=== PATIENT | male | born 1935 | race Caucasian/White ===

== ENCOUNTER 2023-11-14 12:05 | Observation (INO) | payer MEDICARE, SELFPAY ==
[2023-11-14] VITALS (11 sets, daily range): BP systolic 76–141; BP diastolic 47–86; PULSE 73–104; RESP 15–18; TEMP 36.3–36.6; O2SAT 94–98; BMI 24.9; BMI 25.2
--- NOTE | ~2023-11-14 | CT_ITS ---
EXAMINATION: CT HEAD WITHOUT CONTRAST CLINICAL INFORMATION: Fall. COMPARISON: None. TECHNIQUE: Contiguous axial imaging was performed from the skullbase to vertex without intravenous administration of contrast. This CT examination was performed using dose optimization techniques as appropriate, variously including the following: *Automated exposure control *Adjustment of mA and/or kV according to patient size (this includes techniques or standardized protocols for targeted exams where dose is matched to indication/reason for exam; i.e. extremities or head) *Use of iterative reconstruction technique DLP: 638.6 mGy-cm. FINDINGS: There is no evidence of acute intracranial hemorrhage or territorial infarction. No abnormal mass effect or midline shift is seen. No extra-axial fluid collections are identified. Severe chronic white matter microangiopathic changes are noted in both cerebral hemispheres. There is a suspected 6 mm anterior communicating artery aneurysm in the midline suprasellar cistern. Severe diffuse brain parenchymal volume loss is visible with commensurate ex vacuo prominence of the ventricles relative to the sulcal spaces. The osseous structures and soft tissues are normal. Dolichoectasia vertebrobasilar vasculature noted. The mastoid air cells and visualized portions of the paranasal sinuses are well aerated. CT/CT head/brain wo IV con IMPRESSION: No acute intracranial hemorrhage or territorial infarction. Severe chronic white matter microangiopathy and diffuse brain parenchymal volume loss. 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 Recommend further evaluation with a follow-up CT angiogram of the head. Imaging reported to Dr. Stallings at 4:55 PM on 11/14/2023.
--- NOTE | ~2023-11-14 | CT_ITS ---
EXAMINATION: CT ABDOMEN AND PELVIS WITH CONTRAST CLINICAL INFORMATION: Trauma. COMPARISON: None available. TECHNIQUE: Multidetector volumetric images were obtained from the superior aspect of the liver through the pubic symphysis following administration 85 mL of Omnipaque 350 intravenous contrast. Sagittal and coronal reformatted images were obtained on the technologist's workstation. Oral contrast: No This CT examination was performed using dose optimization techniques as appropriate, variously including the following: *Automated exposure control *Adjustment of mA and/or kV according to patient size (this includes techniques or standardized protocols for targeted exams where dose is matched to indication/reason for exam; i.e. extremities or head) *Use of iterative reconstruction technique DLP: 639.63 mGy-cm FINDINGS: LUNG BASES: Please see separately dictated report. LIVER, GALLBLADDER, AND BILIARY TREE: The liver is normal in size, shape, and attenuation. No focal hepatic lesion or biliary ductal dilatation is present. The gallbladder is unremarkable with no evidence of radiopaque gallstones, gallbladder wall thickening, or obvious pericholecystic inflammatory changes. PANCREAS: Unremarkable. SPLEEN: Unremarkable. ADRENAL GLANDS: Unremarkable. KIDNEYS AND URETERS: The kidneys enhance symmetrically. There are right renal cysts for which no further imaging follow-up is needed. 4 mm nonobstructing lower pole left renal calculus. No hydronephrosis or perinephric fluid collection. BLADDER: Unremarkable. GASTROINTESTINAL TRACT: No small bowel obstruction. Moderate fecal retention in the colon. Diverticular disease of the colon. ABDOMINAL WALL: Status post left inguinal hernia repair. LYMPH NODES: No bulky lymphadenopathy. VASCULAR: Normal caliber abdominal aorta. PELVIC VISCERA: Solid enhancing mass in the left lower quadrant measures 7.6 x 6.3 x 6.9 cm. Multiple surgical clips in the pelvis likely attributable to prostatectomy and pelvic lymph node dissection. OSSEOUS STRUCTURES: No destructive bone lesions. CT/CT abdomen pelvis w IV con IMPRESSION: Enhancing solid soft tissue mass in the left lower quadrant measuring 7.6 x 6.3 x 6.9 cm. There is no definite invasion of surrounding structures. This could represent a desmoid tumor. Cytopathologic correlation may be considered. One cannot exclude the possibility of recurrent disease in the setting of prostatectomy. Consider correlation with PSA. 4 mm nonobstructing left renal calculus. No hydronephrosis.
--- NOTE | ~2023-11-14 | CT_ITS ---
EXAMINATION: CT ANGIOGRAM OF THE CHEST WITH AND WITHOUT CONTRAST (CT PULMONARY ANGIOGRAM FOR PE) CLINICAL INFORMATION: Reason for Exam syncope COMPARISON: None available. TECHNIQUE: Prior to contrast administration, noncontrast localization images were obtained. Subsequently, multidetector volumetric imaging was performed from the thoracic inlet to below the diaphragms following the administration of 85 mL Omnipaque 350 intravenous contrast. No contrast reaction reported Sagittal, coronal, and MIP oblique sagittal reformatted images were obtained on the CT workstation, uploaded to PACS, and reviewed. This CT examination was performed using dose optimization techniques as appropriate, variously including the following: *Automated exposure control *Adjustment of mA and/or kV according to patient size (this includes techniques or standardized protocols for targeted exams where dose is matched to indication/reason for exam; i.e. extremities or head) *Use of iterative reconstruction technique Total exam dose-length product 340.87 mGy-cm FINDINGS: QUALITY OF STUDY/CONTRAST BOLUS: Satisfactory. PULMONARY ARTERIES: No pulmonary emboli. 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 THORACIC AORTA: Measures 4.2 x 4.1 cm in transverse dimension. LUNG: No suspicious pulmonary nodules. Patchy airspace disease in the left lower lobe and superior segment right lower lobe. Right middle lobe consolidation. Central airways are patent. PLEURA: No pleural effusion. MEDIASTINUM: 9 mm hypodense right thyroid nodule. The left thyroid lobe is asymmetrically smaller. Heart is enlarged. No pericardial effusion. No mediastinal lymphadenopathy. No evidence of septal bowing or right heart strain. CORONARY ARTERY CALCIFICATION: Moderate. CHEST WALL/AXILLA: No axillary or internal mammary lymphadenopathy. OSSEOUS STRUCTURES: No destructive bone lesions. UPPER ABDOMEN: Please see separately dictated report. No reflux of contrast into the hepatic veins to suggest elevated right heart pressures. CT/CT angio chest PE protocol IMPRESSION: No evidence of pulmonary embolus. Right middle lobe consolidation. Patchy airspace disease in the left lower lobe and superior segment right lower lobe. This may represent multifocal pneumonia. Advise clinical correlation and short interval follow-up imaging. Focal outpouching of the left main pulmonary artery measuring 2.1 x 1.6 x 2.8 cm likely representing an aneurysm. Thoracic aortic aneurysm. VTE: negative
--- NOTE | ~2023-11-14 | XR_ITS ---
EXAMINATION: XR BILATERAL HIPS WITH AP PELVIS CLINICAL INFORMATION: Fall. hip pain. COMPARISON: CT abdomen pelvis November 14, 2023 TECHNIQUE: AP view of the pelvis and 2 views of each hip were obtained. FINDINGS: No fracture. Hip joint spaces are maintained. Alignment is anatomic. Sacroiliac joints and pubic symphysis are normal. No abnormal soft tissue calcifications. Surgical clips in the pelvis. Bladder is opacified with contrast. Visualized bowel pattern is nonobstructive. XR/XR hip BI w PEL1V IMPRESSION: No evidence of acute fracture or dislocation.
--- NOTE | 2023-11-14 12:51 | ECG_ITS ---
Test Reason : SYNCOPE Blood Pressure : / mmHG Vent. Rate : 094 BPM Atrial Rate : 094 BPM P-R Int : 200 ms QRS Dur : 132 ms QT Int : 382 ms P-R-T Axes : 038 -35 006 degrees QTc Int : 477 ms Normal sinus rhythm Left axis deviation Right bundle branch block Abnormal ECG No previous ECGs available Referred By: Tino Stallings Electronically Signed By:CLAYTON SALDIVAR
--- NOTE | 2023-11-14 12:51 | ED.GENADULT ---
HPI - General Adult General Chief complaint: Fall Stated complaint: MECHANICAL FALL Time Seen by Provider: 11/14/23 12:30 Source: patient and family History of Present Illness HPI narrative: This is an 88-year-old male with a past medical history of hypertension, hyperlipidemia, primary progressive aphasia presents evaluation after a fall. Patient's spouse Guillermo and his in-laws are present at time of history and exam. Patient's history is limited due to expressive aphasia. Patient states he was out on his deck and all of a suddenly fell. Patient states he fell. Patient's family states he was out on his deck and fell backward. They state he did not hit his head or lose consciousness. They state no abnormal/uncontrolled body movements or incontinence. Patient states feeling better at this time. He states his name. He does not state season or month. He states no neck pain, paresthesias or extremity weakness. Family states decreased oral intake for the last several months. They state he has been told he has dementia. They state noting he has developing a shuffling gait. They state he is at baseline mentation and speech. states he fells back in 2019 and broken his left elbow requiring a pin . He states no other falls since then. Patient states no headache, nausea, vomiting, vision changes/loss, hearing change/loss, double vision, difficulty swallowing, chest pain, dyspnea, back pain, extremity weakness, arm pain or leg pain. Related Data Allergies Allergy/AdvReac Type Severity Reaction Status Date / Time No Known Allergies Allergy Verified 11/14/23 12:13 Review of Systems Review of Systems: ROS as per HPI [facility] Social History Social History Smoked in Last 30 Days: No Use of substances other than those prescribed or required for medical reasons: No Advance Directives: No Advance Directives Information Provided: No Physical Exam ED Vital Signs: Vital Signs - 24 hr 11/14/23 12:09 11/14/23 13:06 11/14/23 13:26 Temperature 97.4 F Pulse Rate 92 90 89 Respiratory Rate 16 18 Blood Pressure 99/56 L 119/75 128/74 Pulse Oximetry 95 94 Oxygen Delivery Method Nasal Cannula Room Air 11/14/23 13:27 11/14/23 13:31 11/14/23 14:14 Temperature Pulse Rate 98 104 H 88 Respiratory Rate 17 Blood Pressure 89/54 L 76/47 L 130/79 Pulse Oximetry 94 Oxygen Delivery Method Room Air 11/14/23 14:33 11/14/23 15:05 11/14/23 16:39 Temperature 97.4 F 97.4 F Pulse Rate 74 73 85 Respiratory Rate 15 18 17 Blood Pressure 119/70 119/65 106/67 Pulse Oximetry 98 94 94 Oxygen Delivery Method Room Air Room Air Room Air BMI result Body Mass Index 24.9 Gen: NAD, alert HEENT: NCAT, no periorbital or posterior auricular ecchymosis, EOMI, normal conjunctiva, no lingual lacerations CV: RRR, 2+ bilateral radial DP/PT pulses, no murmurs appreciated Pulm: CTAB, no increased work of breathing GI: Soft, NTND, no rebound, guarding or rigidity MSK: Bilateral upper and lower extremity compartments are soft, no midline vertebral tenderness to palpation, full range of motion with neck flexion/extension 45? lateral rotation, pelvis stable, full range of motion with bilateral shoulder/extension and bilateral hip/knee flexion/extension Neuro: Cranial nerves 2-12 are grossly intact, 5/5 bilateral upper and extremity strength, sensation intact to light touch in bilateral upper extremities Medications Administered Discontinued Medications Generic Name Dose Route Start Last Admin Trade Name Freq PRN Reason Stop Dose Admin Lactated Ringer's 1,000 mls @ 999 mls/hr 11/14/23 13:45 11/14/23 15:05 Lr IV 11/14/23 14:45 Infused .Q1H1M ONE Infusion Ceftriaxone Sodium 1 gm/ 50 mls @ 100 mls/hr 11/14/23 17:15 11/14/23 18:05 Sodium Chloride IV 11/14/23 17:44 100 mls/hr ONCE ONE Administration Iohexol 85 ml 11/14/23 14:20 11/14/23 14:20 Iohexol 350 Mg/Ml 100 Ml Infus..Btl IV 11/14/23 14:21 85 ml ONCE ONE Administration Medical Decision Making Medical Decision Making MDM Narrative: Patient presents for evaluation of syncope. He is found to have positive orthostatic vital signs here in the ED. He is otherwise afebrile and hemodynamically stable. He is provided IV fluids. His blood work is reassuring and noncontributory. Differential diagnosis includes, but is not limited to orthostatic hypotension, vasovagal syncope, arrhythmia. This is less likely seizure given history and exam. Given positive orthostatic vital signs is most likely that this is the etiology of the patient's fall and syncope. 1726 - CT demonstrates right middle lobe consolidation. Differential diagnosis is expanded to include early sepsis (given hypotension at home), pneumonia. We will obtain blood cultures, lactic acid, PT/PTT. We will treat empirically for community-acquired pneumonia with ceftriaxone and doxycycline. 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 There is no acute intracranial hemorrhage or territorial infarction. 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 CT abdomen/pelvis with IV contrast demonstrates an enhancing solid soft tissue mass in the left lower quadrant and 4 mm nonobstructing left renal calculus without hydronephrosis. CT angio chest PE protocol demonstrates no evidence of pulmonary embolism, right middle lobe consolidation, thoracic aortic aneurysm and focal outpouching of the left main pulmonary artery likely representing an aneurysm. Blood work and CT imaging findings discussed with the patient, spouse and in-laws. Discussed plan for admission. Patient admitted to hospitalist Dr. Brown for further workup and management. Admission/Observation I discussed patient's care and management with admitting hospitalist Dr. Brown. Consult Healthcare Provider Management of the patient was discussed with: Hospitalist Lab Data MDM Lab Attestation statement: I reviewed the patient's lab results. 11/14/23 13:23 11/14/23 13:23 Labs: Lab Results 11/14/23 11/14/23 Range/Units 13:23 17:25 WBC 9.1 (4.8-10.8) X10*3/uL RBC 3.80 L (4.60-5.80) X10*6/uL Hgb 10.8 L (14.0-18.0) g/dl Hct 33.1 L (42.0-52.0) % MCV 87.1 (80.0-98.0) fL MCH 28.4 (27.0-33.0) pg MCHC 32.6 (31.0-36.0) g/dl RDW 14.6 (11.0-16.0) % Plt Count 267 (160-400) X10*3/uL MPV 7.9 L (9.4-12.4) fL Immature Gran % (Auto) 0.3 (0.0-0.4) % Neut % (Auto) 84.1 H (45-73) % Lymph % (Auto) 9.0 L (20-40) % [place] % (Auto) 6.1 (2-11) % Eos % (Auto) 0.2 (0-4) % Baso % (Auto) 0.3 (0-2) % Lymph # (Auto) 0.8 L (1.2-4.9) X10*3/uL [place] # (Auto) 0.6 (0.1-1.2) X10*3/uL Eos # (Auto) 0.0 (0.0-0.4) X10*3/uL Baso # (Auto) 0.0 (0.0-0.2) X10*3/uL Abs Immat Gran (auto) 0.03 (0.00-0.03) X10*3/uL Absolute Neuts (auto) 7.7 (2.0-8.3) x10*3/uL Absolute Nucleated RBC 0.000 (0.0-0.012) X10*3/uL Nucleated RBC % (auto) 0.0 (0.0-0.2) /100WBC APTT 28.7 (26.0-36.8) SEC Sodium 136 (135-145) mmol/L Potassium 3.8 (3.3-5.1) mmol/L Chloride 105 (96-108) mmol/L Carbon Dioxide 25 (22-29) mmol/L Anion Gap 10 L (12-20) BUN 20 H (9-16) mg/dL Creatinine 1.02 (0.5-1.4) mg/dL Estim Creat Clear Calc 46.9 Estimated GFR > 60 Random Glucose 178 H (60-115) mg/dL Lactic Acid 0.9 (0.5-2.0) mmol/L Calcium 9.3 (8.4-10.2) mg/dL Total Bilirubin 0.5 (0.0-1.0) mg/dL AST 15 (5-37) U/L ALT 14 (0-40) U/L Alkaline Phosphatase 80 (39-117) U/L Total Protein 7.0 (6.5-8.0) g/dL Albumin 3.2 L (3.5-5.0) g/dL Blood Type A Positive Antibody Screen NEGATIVE Radiology Impression Discussion of test interpretation with radiology: I discussed test interpretation with the radiologist and I have reviewed the radiologist's reading. Radiologist Impression: IMPRESSION: No acute intracranial hemorrhage or territorial infarction. Severe chronic white matter microangiopathy and diffuse brain parenchymal volume loss. 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 Recommend further evaluation with a follow-up CT angiogram of the head. Imaging reported to Dr. Stallings at 4:55 PM on 11/14/2023. Dictated By: LISA RASHID MD Signed By: <Electronically signed by LISA RASHID MD in [place]> 11/14/[address]/CT abdomen pelvis w IV con IMPRESSION: Enhancing solid soft tissue mass in the left lower quadrant measuring 7.6 x 6.3 x 6.9 cm. There is no definite invasion of surrounding structures. This could represent a desmoid tumor. Cytopathologic correlation may be considered. One cannot exclude the possibility of recurrent disease in the setting of prostatectomy. Consider correlation with PSA. 4 mm nonobstructing left renal calculus. No hydronephrosis. IMPRESSION: No evidence of pulmonary embolus. Right middle lobe consolidation. Patchy airspace disease in the left lower lobe and superior segment right lower lobe. This may represent multifocal pneumonia. Advise clinical correlation and short interval follow-up imaging. Focal outpouching of the left main pulmonary artery measuring 2.1 x 1.6 x 2.8 cm likely representing an aneurysm. Thoracic aortic aneurysm. VTE: negative Dictated By: Cindi Rodríguez MD Signed By: <Electronically signed by Cindi Rodríguez MD in [place]> 11/14/23 1810 Independent Historian Clinical information obtained from an independent historian. History obtained from or confirmed by: Spouse and Other Patient's spouse and in-laws provide additional history Discharge Plan Discharge Clinical Impression: Syncope Patient Disposition: Admitted As Inpatient Print Language: Latvian
--- NOTE | 2023-11-14 13:08 | PC.NURSE ---
Addendum entered by Suzanne Richardson 11/14/23 16:46: Pt does have expressive aphasia at baseline. Original Note: Pt presents to ED from home via EMS, family reports pt was walking and looked unwell, pale. Pt had a fall backwards to the ground, no head hit, ?LOC. Pt reports he felt unwell and then thinks he may have blacked out for a few seconds. BP hypotensive for family and EMS. Pt now alert and oriented, breathing even and unlabored, skin slightly pale. BP normotensive at this time, NSR on bedside quality assurance monitor body. Pt denies head or neck pain, CP, SOB, N/V/D, recent illnesses/ fever/ cough. Pt reports altered sensations in his bilat feet, intermittent for past month. Positive pulses and movement. No obvious trauma noted to head or face.
[2023-11-14 13:28] LABS: MANUAL DIFF FLAG NO
[2023-11-14 13:29] LABS: Basophils Percent Auto 0.3 % (0-2); Eosinophils Percent Auto 0.2 % (0-4); Hematocrit 33.1 % (42.0-52.0); Hemoglobin 10.8 g/dl (14.0-18.0); Imm Gran Abs Auto 0.03 X10*3/uL (0.00-0.03); Imm Gran Pct Auto 0.3 % (0.0-0.4); Lymphocytes Absolute Auto 0.8 X10*3/uL (1.2-4.9); Mean Corpuscular HGB Conc 32.6 g/dl (31.0-36.0); Mean Corpuscular Hemoglobin 28.4 pg (27.0-33.0); Mean Corpuscular Volume 87.1 fL (80.0-98.0); Mean Platelet Volume 7.9 fL (9.4-12.4); Monocytes Absolute Auto 0.6 X10*3/uL (0.1-1.2); Monocytes Percent Auto 6.1 % (2-11); Neutrophils Absolute Auto 7.7 x10*3/uL (2.0-8.3); Neutrophils Percent Auto 84.1 % (45-73); Platelet Count 267 X10*3/uL (160-400); Red Cell Distribution Width 14.6 % (11.0-16.0); White Blood Count 9.1 X10*3/uL (4.8-10.8)
[2023-11-14 13:45] LABS: Alanine Aminotransferase 14 U/L (0-40); Albumin Level 3.2 g/dL (3.5-5.0); Alkaline Phosphatase 80 U/L (39-117); Anion Gap 10 (12-20); Aspartate Amino Transferase 15 U/L (5-37); Bilirubin Total 0.5 mg/dL (0.0-1.0); Blood Urea Nitrogen 20 mg/dL (9-16); Calcium 9.3 mg/dL (8.4-10.2); Carbon Dioxide 25 mmol/L (22-29); Chloride 105 mmol/L (96-108); Creatinine Clr Calc Pharmacy 46.9; Estimated Glomerular Filt Rate > 60; Glucose Random 178 mg/dL (60-115); Potassium 3.8 mmol/L (3.3-5.1); Sodium 136 mmol/L (135-145)
[2023-11-14] MEDS: Lactated Ringers 1,000 ML 999 ML IV (13:53)
[2023-11-14] MEDS: iohexoL 350 MG/ML 100 ML INFUS..BTL 85 ML IV (14:20)
--- NOTE | 2023-11-14 16:46 | PC.NURSE ---
Rn alerted that pt removed his IV, pt reports he was trying to get the tape off and accidentally removed the IV. Pt denies any complaints, no pain. VSS.
[2023-11-14 17:51] LABS: Lactic Acid 0.9 mmol/L (0.5-2.0)
[2023-11-14 17:54] LABS: Partial Thromboplastin Time 28.7 SEC (26.0-36.8)
[2023-11-14] MEDS: cefTRIAXone sodium 1 GM in 0.9 % Sodium Chloride 50 ML IV (18:05)
--- NOTE | 2023-11-14 18:20 | PHA.MEDREC ---
Pharmacy Consult ? Medication Reconciliation Pharmacy has completed the medication reconciliation. Called spouse Matt and he was able to confirm medications on the list. His spouse stated that patient is taking Vitamin B-12 but was not sure on the dosing, I did not add to the Pt med list for that reason.
[2023-11-14] MEDS: Doxycycline Hyclate 100 MG in 0.9 % Sodium Chloride 250 ML 166.67 MG IV (18:26)
--- NOTE | 2023-11-14 18:29 | PM.IMHP ---
History of Present Illness Date of Service: 11/14/23 Attending physician on admission: Katie Brown Chief Complaint: fall ,orthostatic hypotension 88-year-old male with a past medical history of hypertension, hyperlipidemia, primary progressive aphasia,mild dementia unspecified- presents evaluation after a fall. Patient's spouse Guillermo and his in-laws are present at time of history and exam. Patient's history is limited due to expressive aphasia. Patient states he was out on his deck and all of a suddenly fell, he was out on his deck and fell backward, did not hit his head or lose consciousness. no abnormal/uncontrolled body movements or incontinence. denies no neck pain, paresthesias or extremity weakness. he also decreased oral intake for the last several months. lost 12 lb last 3 months. They state he is at baseline mentation and speech. states he fells back in 2019 and broken his left elbow requiring a pin .He states no other falls since then. he is feeling better ,he seems mental baseline . he is progressively declining function cristina ,gait is also becoming shuffling. Patient states no headache, nausea, vomiting, vision changes/loss, hearing change/loss, double vision, difficulty swallowing, chest pain, dyspnea, back pain, extremity weakness, arm pain or leg pain. Review of Systems Review of Systems: as above Yes all other systems are reviewed and are negative [facility] Social History Smoked in Last 30 Days: No Use of substances other than those prescribed or required for medical reasons: No Advance Directives: No Advance Directives Information Provided: No Meds Allergies Allergy/AdvReac Type Severity Reaction Status Date / Time No Known Allergies Allergy Verified 11/14/23 12:13 Active Medications: Current Medications Aspirin (Aspirin 81 Mg Tab.Chew) 81 mg PO DAILY [facility] Doxycycline Hyclate 100 mg/ (Sodium Chloride) 250 mls @ 166.67 mls/hr IV ONCE ONE Stop: 11/14/23 18:44 Last Admin: 11/14/23 18:26 Dose: 166.67 mls/hr Multivitamins/Vitamin C (Multivitamin Tablet) 1 tab PO DAILY [facility] Non-Formulary Medication (Simvastatin) 20 mg PO BEDTIME [facility] Sodium Chloride (0.9 % Sodium Chloride Flush 3 Ml Syringe) 3 ml IVFLUSH QSHIFT [facility] Home Medications ?Medication ?Instructions ?Recorded ?Confirmed ?Last Taken ?Type aspirin 81 mg chewable tablet 81 mg PO DAILY 11/14/23 11/14/23 11/13/23 History hydrochlorothiazide 12.5 mg capsule 12.5 mg PO DAILY 11/14/23 11/14/23 11/13/23 History multivitamin 1 tab PO DAILY 11/14/23 11/14/23 11/13/23 History simvastatin 20 mg tablet 20 mg PO BEDTIME 11/14/23 11/14/23 11/13/23 History Physical Exam Vital Signs and Narrative: Vital Signs: Last Vital Signs Temp 97.4 F 11/14/23 16:39 Pulse 85 11/14/23 16:39 Resp 17 11/14/23 16:39 BP 106/67 11/14/23 16:39 Pulse Ox 94 11/14/23 16:39 O2 Del Method Room Air 11/14/23 16:39 Oxygen Flow Rate 2 11/14/23 12:09 BMI result Body Mass Index 24.9 Appearance: Alert.? Oriented X2. cvs: rrr, [id number] . res: clear to auscultation ,no rhonchii or wheezing abd: no rebound or guarding ,nt, bs present. ext pulses present , no cyanosis . neuro: axo3 , nonfocal. Results Labs 11/14/23 13:23 11/14/23 13:23 Labs: Laboratory Results - last 24 hr 11/14/23 11/14/23 13:23 17:25 MCV 87.1 MCH 28.4 MCHC 32.6 RDW 14.6 Plt Count 267 MPV 7.9 L Immature Gran % (Auto) 0.3 Neut % (Auto) 84.1 H Lymph % (Auto) 9.0 L [place] % (Auto) 6.1 Eos % (Auto) 0.2 Baso % (Auto) 0.3 Lymph # (Auto) 0.8 L [place] # (Auto) 0.6 Eos # (Auto) 0.0 Baso # (Auto) 0.0 Abs Immat Gran (auto) 0.03 Absolute Neuts (auto) 7.7 Absolute Nucleated RBC 0.000 Nucleated RBC % (auto) 0.0 APTT 28.7 Anion Gap 10 L Estim Creat Clear Calc 46.9 Estimated GFR > 60 Random Glucose 178 H Lactic Acid 0.9 Calcium 9.3 Total Bilirubin 0.5 AST 15 ALT 14 Alkaline Phosphatase 80 Total Protein 7.0 Albumin 3.2 L Blood Type A Positive Antibody Screen NEGATIVE Imaging Radiologist's Impressions: Impressions Chest CTA 11/14/23 14:41 IMPRESSION: No evidence of pulmonary embolus. Right middle lobe consolidation. Patchy airspace disease in the left lower lobe and superior segment right lower lobe. This may represent multifocal pneumonia. Advise clinical correlation and short interval follow-up imaging. Focal outpouching of the left main pulmonary artery measuring 2.1 x 1.6 x 2.8 cm likely representing an aneurysm. Thoracic aortic aneurysm. VTE: negative Abdomen/Pelvis CT 11/14/23 14:42 IMPRESSION: Enhancing solid soft tissue mass in the left lower quadrant measuring 7.6 x 6.3 x 6.9 cm. There is no definite invasion of surrounding structures. This could represent a desmoid tumor. Cytopathologic correlation may be considered. One cannot exclude the possibility of recurrent disease in the setting of prostatectomy. Consider correlation with PSA. 4 mm nonobstructing left renal calculus. No hydronephrosis. Head CT 11/14/23 14:44 IMPRESSION: No acute intracranial hemorrhage or territorial infarction. Severe chronic white matter microangiopathy and diffuse brain parenchymal volume loss. 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 Recommend further evaluation with a follow-up CT angiogram of the head. Imaging reported to Dr. Stallings at 4:55 PM on 11/14/2023. Assessment and Plan (1) Fall: Qualifiers: Encounter type: initial encounter Qualified Code(s): W19.XXXA - Unspecified fall, initial encounter Status: Acute (2) Pneumonia: Qualifiers: Laterality: right Lung location: middle lobe of lung Pneumonia type: due to unspecified organism Qualified Code(s): J18.9 - Pneumonia, unspecified organism Status: Acute (3) Orthostasis: Status: Acute Plan 88-year-old male with a past medical history of hypertension, hyperlipidemia, primary progressive aphasia presents evaluation after a fall. primary progressive aphasia : follow up with his pcp/primary neurology. fall /orthostatic hypotension moniter bp closely Received IV fluid in ED and blood pressure seems to be improved. Tachycardia likely related to orthostatic hypotension. 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 Patient does not have any headache or any new symptoms. Outpatient follow-up with Neurology. 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 CT abdomen also showsEnhancing solid soft tissue mass in the left lower quadrant measuring 7.6 x 6.3 x 6.9 cm. There is no definite invasion of surrounding structures. This could represent a desmoid tumor. Cytopathologic correlation may be considered. May need outpatient biopsy and workup Pneumonia: No fever, no leukocytosis had some congestion but no cough Will check ReS panel Blood culture pending Tachycardia and hypotension related to orthostatic hypotension- no sepsis. Will continue IV antibiotics for now. Hypertension: Stop hydrochlorothiazide Note blood pressure closely HLP: Continue statin. Generalized weak: PT evaluation. DVT prophylaxis SCD. Patient will benefit from observation stay due to symptomatic orthostatic hypotension-need IV fluids, also need IV antibiotics for pneumonia as well as close monitoring of blood pressure and respiratory status. PT evaluation. plan d/w HCp in detail.plan to manage conservatively. Time spent 70 minute, patient is DNR DNI. Give HCP miss ames says hcp/power of assistant city attorney,phone no [phone]. Quality Stroke Does the patient have a stroke diagnosis?: No VTE Prior VTE?: No VTE Risk Level:: Medical - moderate - high VTE Device Contraindication: N/A - Device Ordered VTE Drug Contraindication: N/A - Med Ordered
--- NOTE | 2023-11-14 19:06 | PC.NURSE ---
Pt resting quietly in stretcher. Denies any needs at this time. Doxycycline continues to infuse.
[2023-11-14] MEDS: 0.9 % Sodium Chloride 1,000 ML 100 ML IVCONT (19:31)
[2023-11-14 21:35] LABS: INTERNATIONAL NORM RATIO 1.1 (0.9-1.1); Prothrombin Time 13.1 SEC (11.1-13.3)
[2023-11-14] MEDS: Atorvastatin Calcium 10 MG TABLET PO (23:44)
[2023-11-15] VITALS (9 sets, daily range): BP systolic 121–160; BP diastolic 63–78; PULSE 68–98; RESP 16–20; TEMP 36.3–37.1; O2SAT 94–97
[2023-11-15] MEDS: 0.9 % Sodium Chloride 1,000 ML 100 ML IVCONT ×2 (04:40→16:02)
[2023-11-15] MEDS: Aspirin 81 MG TAB.CHEW PO (08:40)
[2023-11-15] MEDS: Multivitamin TABLET 1 TAB PO (08:40)
[2023-11-15] MEDS: Doxycycline Hyclate 100 MG in 0.9 % Sodium Chloride 250 ML 166.67 MG IV ×2 (08:40→18:24)
[2023-11-15] MEDS: 0.9 % Sodium Chloride Flush 3 ML SYRINGE IVFLUSH ×3 (08:40→21:28)
--- NOTE | 2023-11-15 10:57 | P.CNNE_ITS ---
History of Present Illness Data of Consult Service Date: 11/15/23 Primary Care Provider: Clementine Freeman MD HPI Reason for consult: Aphasia 88 years old man with underlying history of dementia and aphasia came to hospital after he fell down. When I asked him why he was here, he stated that he had no place to stay. There was no sign of distress. Review of Systems 2 Review of Systems: No recent cold or flu-like illness PMFSH Social History Social History Household Members: Spouse Housing: Assisted Living Facility Do you presently have visiting nurse or other home services: No Patient Tobacco Use Status: Former Tobacco user Meds Allergies Allergy/AdvReac Type Severity Reaction Status Date / Time No Known Allergies Allergy Verified 11/14/23 12:13 Active Medications: Current Medications Aspirin (Aspirin 81 Mg Tab.Chew) 81 mg PO DAILY [facility] Last Admin: 11/15/23 08:40 Dose: 81 mg Atorvastatin Calcium (Atorvastatin Calcium 10 Mg Tablet) 10 mg PO BEDTIME [facility] Last Admin: 11/14/23 23:44 Dose: 10 mg Sodium Chloride (Ns) 1,000 mls @ 100 mls/hr IVCONT .Q10H [facility] Last Admin: 11/15/23 04:40 Dose: 100 mls/hr Doxycycline Hyclate 100 mg/ (Sodium Chloride) 250 mls @ 166.67 mls/hr IV Q12H [facility] Last Admin: 11/15/23 08:40 Dose: 166.67 mls/hr Ceftriaxone Sodium 1 gm/ (Sodium Chloride) 50 mls @ 100 mls/hr IV Q24H [facility] Multivitamins/Vitamin C (Multivitamin Tablet) 1 tab PO DAILY [facility] Last Admin: 11/15/23 08:40 Dose: 1 tab Sodium Chloride (0.9 % Sodium Chloride Flush 3 Ml Syringe) 3 ml IVFLUSH QSHIFT [facility] Last Admin: 11/15/23 08:40 Dose: 3 ml Home Medications ?Medication ?Instructions ?Recorded ?Confirmed ?Last Taken ?Type aspirin 81 mg chewable tablet 81 mg PO DAILY 11/14/23 11/14/23 11/13/23 History hydrochlorothiazide 12.5 mg capsule 12.5 mg PO DAILY 11/14/23 11/14/23 11/13/23 History multivitamin 1 tab PO DAILY 11/14/23 11/14/2324 History simvastatin 20 mg tablet 20 mg PO BEDTIME 11/14/23 11/14/23 11/13/23 History Physical Exam 2 Vital Signs: Vital Signs: Last Vital Signs Temp 97.7 F 11/15/23 07:30 Pulse 68 11/15/23 07:30 Resp 18 11/15/23 07:30 BP 132/73 11/15/23 07:30 Pulse Ox 94 11/15/23 07:30 O2 Del Method Room Air 11/15/23 07:30 Oxygen Flow Rate 2 11/14/23 12:09 BMI result Body Mass Index 25.2 Neuro: Other: He is alert and awake with slightly decreased spontaneity and fluency of speech. He is making paraphasic errors. Reading was moderately affected. Repetition was relatively better. He was able to follow commands. Face was symmetrical. Visual prince are full. There was no pronator drift. Speech was normal. Results Labs 11/14/23 13:23 11/14/23 13:23 Labs: Short CBC 11/14/23 Range/Units 13:23 WBC 9.1 (4.8-10.8) X10*3/uL Hgb 10.8 L (14.0-18.0) g/dl Hct 33.1 L (42.0-52.0) % Plt Count 267 (160-400) X10*3/uL BMP 11/14/23 13:23 Sodium 136 Potassium 3.8 Chloride 105 Carbon Dioxide 25 BUN 20 H Creatinine 1.02 Calcium 9.3 Liver Function 11/14/23 Range/Units 13:23 Total Bilirubin 0.5 (0.0-1.0) mg/dL AST 15 (5-37) U/L ALT 14 (0-40) U/L Alkaline Phosphatase 80 (39-117) U/L Albumin 3.2 L (3.5-5.0) g/dL Head CT revealed moderately severe diffuse central cortical atrophy and moderately severe chronic microvascular ischemic changes. 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 Mainstay of management is proper place of residence as he would not be able to take care of himself in any part of ADLs. Also an EEG is recommended to rule out seizure disorder as risk of seizure disorder is relatively high and this man and he had fallen before came to hospital. Procedures Date of Service Date of Service: 11/15/23
--- NOTE | 2023-11-15 12:28 | HO.PM.IMPN ---
Subjective Subjective Date of Service: 11/15/23 Interval History: orthostatic hypotension Review of Systems seems feeling slightly better denies any chest pain or sob no fevers or cough Physical Exam Vital Signs: Vital Signs: Last Vital Signs Temp 97.4 F 11/15/23 12:00 Pulse 73 11/15/23 12:00 Resp 18 11/15/23 12:00 BP 128/69 11/15/23 12:00 Pulse Ox 95 11/15/23 12:00 O2 Del Method Room Air 11/15/23 12:00 Oxygen Flow Rate 2 11/14/23 12:09 BMI result Body Mass Index 25.2 Appearance: Alert.? Oriented X2. cvs: rrr, [id number] . res: clear to auscultation ,no rhonchii or wheezing abd: no rebound or guarding ,nt, bs present. ext pulses present , no cyanosis . neuro: axo3 , nonfocal. Objective Data Active Medications Aspirin (Aspirin 81 Mg Tab.Chew) 81 mg PO DAILY [facility] 234 BEDS AT [facility] Last Admin: 11/15/23 08:40 Dose: 81 mg Documented By: EUGENE Atorvastatin Calcium (Atorvastatin Calcium 10 Mg Tablet) 10 mg PO BEDTIME COUNTS INCLUDE 234 BEDS AT THE [facility] Last Admin: 11/14/23 23:44 Dose: 10 mg Documented By: JEFF Sodium Chloride (Ns) 1,000 mls @ 100 mls/hr IVCONT .Q10H COUNTS INCLUDE 234 BEDS AT THE [facility] Last Admin: 11/15/23 04:40 Dose: 100 mls/hr Documented By: REJI Doxycycline Hyclate 100 mg/ (Sodium Chloride) 250 mls @ 166.67 mls/hr IV Q12H COUNTS INCLUDE 234 BEDS AT THE [facility] Last Infusion: 11/15/23 11:11 Dose: Infused Documented By: TRACIE Ceftriaxone Sodium 1 gm/ (Sodium Chloride) 50 mls @ 100 mls/hr IV Q24H COUNTS INCLUDE 234 BEDS AT THE [facility] Multivitamins/Vitamin C (Multivitamin Tablet) 1 tab PO DAILY COUNTS INCLUDE 234 BEDS AT THE [facility] Last Admin: 11/15/23 08:40 Dose: 1 tab Documented By: EUGENE Sodium Chloride (0.9 % Sodium Chloride Flush 3 Ml Syringe) 3 ml IVFLUSH QSHIFT COUNTS INCLUDE 234 BEDS AT THE [facility] Last Admin: 11/15/23 08:40 Dose: 3 ml Documented By: EUGENE Labs 11/14/23 13:23 11/14/23 13:23 Labs: Laboratory Results - last 24 hr 11/14/23 11/14/23 13:23 17:25 MCV 87.1 MCH 28.4 MCHC 32.6 RDW 14.6 Plt Count 267 MPV 7.9 L Immature Gran % (Auto) 0.3 Neut % (Auto) 84.1 H Lymph % (Auto) 9.0 L [place] % (Auto) 6.1 Eos % (Auto) 0.2 Baso % (Auto) 0.3 Lymph # (Auto) 0.8 L [place] # (Auto) 0.6 Eos # (Auto) 0.0 Baso # (Auto) 0.0 Abs Immat Gran (auto) 0.03 Absolute Neuts (auto) 7.7 Absolute Nucleated RBC 0.000 Nucleated RBC % (auto) 0.0 PT 13.1 INR 1.1 APTT 28.7 Anion Gap 10 L Estim Creat Clear Calc 46.9 Estimated GFR > 60 Random Glucose 178 H Lactic Acid 0.9 Calcium 9.3 Total Bilirubin 0.5 AST 15 ALT 14 Alkaline Phosphatase 80 Total Protein 7.0 Albumin 3.2 L Blood Type A Positive Antibody Screen NEGATIVE Assessment and Plan (1) Multifactorial dementia: Status: Acute (2) Orthostasis: Status: Acute (3) Pneumonia: Status: Acute Assessment and Plan: 88-year-old male with a past medical history of hypertension, hyperlipidemia, 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 seen by neuro-multifactorial (degenerative +vascular) dementia , rec for eeg since risk for seizure dis . added EEG follow up with his pcp/primary neurology. fall /orthostatic hypotension moniter bp closely Received IV fluid in ED and blood pressure seems to be improved. Tachycardia likely related to orthostatic hypotension. 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 Patient does not have any headache or any new symptoms. Outpatient follow-up with Neurology. 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 CT abdomen also showsEnhancing solid soft tissue mass in the left lower quadrant measuring 7.6 x 6.3 x 6.9 cm. There is no definite invasion of surrounding structures. This could represent a desmoid tumor. Cytopathologic correlation may be considered. May need outpatient biopsy and workup Pneumonia: No fever, no leukocytosis had some congestion but no cough Will check ReS panel Blood culture pending Tachycardia and hypotension related to orthostatic hypotension- no sepsis. Will continue IV antibiotics for now. Hypertension: Stop hydrochlorothiazide Note blood pressure closely HLP: Continue statin. Generalized weak: PT evaluation. DVT prophylaxis SCD. Patient will benefit from observation stay due to symptomatic orthostatic hypotension-need IV fluids, also need IV antibiotics for pneumonia as well as close monitoring of blood pressure and respiratory status. PT evaluation. YUVAL ames says hcp,phone no [phone] notified. Quality Stroke Does the patient have a stroke diagnosis?: No VTE Prior VTE?: No VTE Risk Level:: Medical - moderate - high VTE Device Contraindication: N/A - Device Ordered VTE Drug Contraindication: N/A - Med Ordered
--- NOTE | 2023-11-15 13:07 | MHC.CM.PN ---
Elizabeth 11/15/23, Pt lives with his at [facility], his takes care of him with reminders and verbal cuing, is looking into getting home health aid assistance at to help pt with personal care. Pt does not use DME. HCP is in place, copy requested. Spouse to transport home at [place]. DCP: Home with support from spouse and [facility]. CM to follow and assist with DC planning.
[2023-11-15 13:33] LABS: Estimated Average Glucose 117 mg/dL; Hemoglobin A1C 106.7059 umol/L; Hemoglobin A1c % 5.7 % (<6.0)
[2023-11-15] MEDS: cefTRIAXone sodium 1 GM in 0.9 % Sodium Chloride 50 ML IV (18:24)
[2023-11-15] MEDS: Atorvastatin Calcium 10 MG TABLET PO (21:24)
[2023-11-16] VITALS (9 sets, daily range): BP systolic 118–178; BP diastolic 64–87; PULSE 67–90; RESP 18–20; TEMP 36.2–37.1; O2SAT 94–98
[2023-11-16] MEDS: 0.9 % Sodium Chloride 1,000 ML 100 ML IVCONT ×2 (01:21→11:53)
[2023-11-16] MEDS: Doxycycline Hyclate 100 MG in 0.9 % Sodium Chloride 250 ML 166.67 MG IV (06:50)
[2023-11-16] MEDS: 0.9 % Sodium Chloride Flush 3 ML SYRINGE IVFLUSH ×2 (10:02→16:03)
[2023-11-16] MEDS: Multivitamin TABLET 1 TAB PO (10:02)
[2023-11-16] MEDS: Aspirin 81 MG TAB.CHEW PO (10:03)
--- NOTE | 2023-11-16 12:52 | MHC.CM.PN ---
Addendum entered by Stefany Bull 11/16/23 13:34: [facility] unable to accept pt, referral placed with [facility] Original Note: Copy of HCP recieved from pt.'s , added to chart. Referral made to [facility] (patient choice, PCP is with [facility]). Pt has been medically cleared, family to transport home, home care services from [facility].
--- NOTE | 2023-11-16 13:12 | PM.DS ---
DS: Providers Provider Date of Service: 11/16/23 Date of admission: 11/14/23 18:22 Date of discharge: 11/16/23 Primary care physician: Clementine Freeman MD Consults: 11/14/23 19:15 Consult to Neurology Routine Consulting Provider: [facility] Reason for consultation: primary progressive aphasia/brain aneurism Has provider been notified: No Attending physician on discharge: Katie Brown Discharging clinician: Katie Brown DS: Diagnosis Discharge Diagnosis (1) Multifactorial dementia: Status: Acute (2) Orthostasis: Status: Acute (3) Pneumonia: Status: Acute DS: Summary Hospital Course Hospital Course: HPI:88-year-old male with a past medical history of hypertension, hyperlipidemia, primary progressive aphasia,mild dementia unspecified- presents evaluation after a fall. Patient's spouse Guillermo and his in-laws are present at time of history and exam. Patient's history is limited due to expressive aphasia. Patient states he was out on his deck and all of a suddenly fell, he was out on his deck and fell backward, did not hit his head or lose consciousness. no abnormal/uncontrolled body movements or incontinence. denies no neck pain, paresthesias or extremity weakness. he also decreased oral intake for the last several months. lost 12 lb last 3 months. They state he is at baseline mentation and speech. states he fells back in 2019 and broken his left elbow requiring a pin .He states no other falls since then. he is feeling better ,he seems mental baseline . he is progressively declining function cristina ,gait is also becoming shuffling. Patient states no headache, nausea, vomiting, vision changes/loss, hearing change/loss, double vision, difficulty swallowing, chest pain, dyspnea, back pain, extremity weakness, arm pain or leg pain. Hospital course: Patient was admitted to the hospital after falling down incident, did not lose his consciousness-workup done with CTA likely severe diffuse central cortical atrophy and moderately severe chronic microvascular ischemic changes. Patient was seen by Neurology-patient has multifactorial dementia, mental status at baseline as per family, seen by PT recommended home with services. Neurology also recommended outpatient EEG . Fall possibly related to orthostatic hypotension secondary to decreased p.o. intake: Patient was given IV hydration, Jossue stocking, hydrochlorothiazide placed on hold, patient blood pressure seems to be improved, denies any new symptoms. Hypertension: Patient blood pressure is going 140-160 range: Will add small dose amlodipine 2.5 mg daily, monitor blood pressure outpatient. Pneumonia: Patient was started on ceftriaxone and doxy-patient does not have any shortness of breath or leukocytosis or fever, blood culture 1/2 coagulase-negative possible contaminant. Patient will be going home with p.o. Ceftin 500 mg p.o. b.i.d. for 6 more days, doxycycline 100 mg p.o. b.i.d. for 6 more days. Consider repeating chest imaging in 3-4 weeks to see resolution pneumonia. CTa head( please see complete imaging report in imaging section.): Negative, hasSuspected 6 mm anterior communicating artery aneurysm. Patient does not have any headache or any new symptoms. Outpatient follow-up with Neurology. 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 CT abdomen also showsEnhancing solid soft tissue mass in the left lower quadrant measuring 7.6 x 6.3 x 6.9 cm( please see complete imaging report in imaging section.). There is no definite invasion of surrounding structures. This could represent a desmoid tumor. Cytopathologic correlation may be considered. Discussed with oncology: May need outpatient biopsy and workup if family decides. Consider Follow-up with Oncology. plan: CompleteCeftin 500 mg p.o. b.i.d. for 6 more days, doxycycline 100 mg p.o. b.i.d. for 6 more days.Consider repeating chest imaging in 3-4 weeks to see resolution pneumonia. May need outpatient biopsy abdominal mass and workup if family decides. Consider Follow-up with Oncology. Above management discussed with the patient's manager architecture/ Mr ames in detail length-he understand and in agreement with the above plan, time spent 50 minute. Time Attestation Total time managing care of this patient today: 50 mintues. Discharge Coordination Time (in mins): 50 min Quality: Safe Use of Opioids Does Pt have an Active Cancer Diagnosis on the Problem List?: No Quality: Stroke Does the patient have a stroke diagnosis?: No Physical Exam Vital Signs: Vital Signs: Last Vital Signs Temp 97.8 F 11/16/23 11:17 Pulse 67 11/16/23 11:17 Resp 18 11/16/23 11:17 BP 143/71 H 11/16/23 11:17 Pulse Ox 95 11/16/23 11:17 O2 Del Method Room Air 11/16/23 11:17 Oxygen Flow Rate 2 11/14/23 12:09 BMI result Body Mass Index 25.2 Appearance: Alert.? Oriented X2. cvs: rrr, [id number] . res: clear to auscultation ,no rhonchii or wheezing abd: no rebound or guarding ,nt, bs present. ext pulses present , no cyanosis . neuro: axo3 , nonfocal. DS: Data Data Completed and Pending Labs on day of discharge: Laboratory Results - last 24 hr 11/15/23 13:11 Estimat Average Glucose 117 Hemoglobin A1c % 5.7 Preliminary micro results at discharge 11/14/23 17:41 Blood Culture - Preliminary Blood - Venous No growth after 24 hours. Imaging Chest x-ray: Radiologist's impression: ITS Impressions Chest CTA 11/14/23 14:41 IMPRESSION: No evidence of pulmonary embolus. Right middle lobe consolidation. Patchy airspace disease in the left lower lobe and superior segment right lower lobe. This may represent multifocal pneumonia. Advise clinical correlation and short interval follow-up imaging. Focal outpouching of the left main pulmonary artery measuring 2.1 x 1.6 x 2.8 cm likely representing an aneurysm. Thoracic aortic aneurysm. VTE: negative Abdomen/Pelvis CT 11/14/23 14:42 IMPRESSION: Enhancing solid soft tissue mass in the left lower quadrant measuring 7.6 x 6.3 x 6.9 cm. There is no definite invasion of surrounding structures. This could represent a desmoid tumor. Cytopathologic correlation may be considered. One cannot exclude the possibility of recurrent disease in the setting of prostatectomy. Consider correlation with PSA. 4 mm nonobstructing left renal calculus. No hydronephrosis. Head CT 11/14/23 14:44 IMPRESSION: No acute intracranial hemorrhage or territorial infarction. Severe chronic white matter microangiopathy and diffuse brain parenchymal volume loss. 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 Recommend further evaluation with a follow-up CT angiogram of the head. Imaging reported to Dr. Stallings at 4:55 PM on 11/14/2023. Hip/Pelvis X-Ray 11/14/23 19:00 IMPRESSION: No evidence of acute fracture or dislocation. Discharge Plan Discharge Anticipated Discharge Date/Time: 11/16/23 12:39 Patient Disposition: Home Health Service Discharge Diagnosis: pneumonia ,orthostasis ,abdominal mass. Referrals: [facility] [Outside] - 1 Week Clementine Freeman MD [Primary Care Provider] - 1 Week Lorena Glasgow MD [Physician] - 1 Week Siddharth Mejia MD [Physician] - 1 Week Discharge Medications: New (DME) T.E.D. Knee [id number] Misc See Rx Instructions .Route Qty: 2 0RF Rx Instructions: As directed doxycycline monohydrate 100 mg Capsule 100 mg PO Q12H Qty: 12 0RF cefuroxime axetil 500 mg Tablet 500 mg PO Q12H Qty: 12 0RF amlodipine 2.5 mg Tablet 2.5 mg PO DAILY Qty: 60 0RF Protocol: Hold for SBP< HOLD for SBP < : 90 Continued multivitamin Tablet 1 tab PO DAILY simvastatin 20 mg tablet 20 mg PO BEDTIME aspirin 81 mg Tablet,Chewable 81 mg PO DAILY Discontinued hydrochlorothiazide 12.5 mg capsule 12.5 mg PO DAILY Discharge Orders: Discharge Order (Routine); Ordered 11/16/23 Ordered By: Katie Brown Diet: Advance to usual diet Activity on Discharge: As tolerated Stand Alone Forms: Patient Portal Discharge page Print Language: Samoan Care Plan Goals: Patient was admitted to the hospital after falling down incident, did not lose his consciousness-workup done with CTA likely severe diffuse central cortical atrophy and moderately severe chronic microvascular ischemic changes. Patient was seen by Neurology-patient has multifactorial dementia, mental status at baseline as per family, seen by PT recommended home with services. Neurology also recommended outpatient EEG . Fall possibly related to orthostatic hypotension secondary to decreased p.o. intake: Patient was given IV hydration, Jossue stocking, hydrochlorothiazide placed on hold, patient blood pressure seems to be improved, denies any new symptoms. Hypertension: Patient blood pressure is going 140-160 range: Will add small dose amlodipine 2.5 mg daily, monitor blood pressure outpatient. Pneumonia: Patient was started on ceftriaxone and doxy-patient does not have any shortness of breath or leukocytosis or fever, blood culture 1/2 coagulase-negative possible contaminant. Patient will be going home with p.o. Ceftin 500 mg p.o. b.i.d. for 6 more days, doxycycline 100 mg p.o. b.i.d. for 6 more days. Consider repeating chest imaging in 3-4 weeks to see resolution pneumonia. CT head: Negative, hasSuspected 6 mm anterior communicating artery aneurysm. Patient does not have any headache or any new symptoms. Outpatient follow-up with Neurology. 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 CT abdomen also showsEnhancing solid soft tissue mass in the left lower quadrant measuring 7.6 x 6.3 x 6.9 cm. There is no definite invasion of surrounding structures. This could represent a desmoid tumor. Cytopathologic correlation may be considered. May need outpatient biopsy and workup Above management discussed with the patient's manager architecture/ Mr ames in detail length-he understand and in agreement with the above plan, time spent 50 minute. Health Concerns: As above. Plan of Treatment: As above. Assessment: As above.
--- NOTE | 2023-11-16 13:18 | W.MHC.F2F ---
Service Date Service Date: 11/16/23 Encounter Date of encounter: 11/16/23 Encounter: Pneumonia, orthostatic hypotension, pelvic mass Reasons for Services Signs and symptoms assessed: Any new dizziness or chest pain or shortness of breath or any new symptoms. Reason for [facility]: CV/CP assess and/or care, medication management, medication treatment, teach disease management and other (moniter blood pressure) Reason for physical therapy: home safety and mobility, therapeutic exercises, restore joint function, gait/transfer training, assess need for DME, ADL training, energy conservation and other Reason for occupational therapy: home safety and mobility, therapeutic exercises, restore joint function, gait/transfer training, assess need for DME, ADL training, energy conservation and other MD Overseeing Care: Clementine Freeman Homebound: Leaving the home is medically contraindicated at this time without the asist of a device and/or another person due th the listed conditions above and below. Reason homebound: weakness related to hospital stay Homebound supporting statement: Patient is generalized weak post hospitalization stay, has multiple comorbidities including orthostatic hypotension, pneumonia, dementia-need help with appointments, lab draws, PT OT, blood pressure monitoring. Certification: Based on the above findings, I certify that this patient is confined to the home and needs intermittent [facility] care, physical therapy and/or speech therapy, or continues to need occupational therapy. The patient is under my care, and I have initiated the establishment of the plan of care. The patient will be followed by a physician who will periodically review the plan of care. Time Spent With Patient Time: Total time managing care of this patient today ____ minutes.
[2023-11-16] MEDS: Doxycycline Monohydrate 100 MG CAPSULE PO (16:02)
[2023-11-16] MEDS: amLODIPine Besylate 2.5 MG TABLET PO (16:02)
[2023-11-16] MEDS: cefuroxime axetiL 500 MG TABLET PO (16:02)
== END 2023-11-16 17:01 | disposition home health service (06) ==
LOC: HO.ED 17:48 → HO.EDOVER 18:35 → HO.IMC 19:07
PROVIDERS: Admitting Provider Internal Medicine; Emergency Provider Emergency Medicine; PCP Internal Medicine; Visit Provider Internal Medicine
DX: J18.9 Pneumonia, unspecified organism (principal); I95.1 Orthostatic hypotension; R19.00 Intra-abdominal and pelvic swelling, mass and lump, unspecified site; G31.01 Pick's disease; F01.B0 Vascular dementia, moderate, without behavioral disturbance, psychotic disturbance, mood disturbance, and anxiety; E78.5 Hyperlipidemia, unspecified; Z91.81 History of falling; M25.552 Pain in left hip; M25.551 Pain in right hip
CPT/HCPCS: 36415; 70450; 71275; 73521; 74177; 80053; 83036; 83605; 85025; 85610; 85730; 86850; 86900; 86901; 87040; 87147; 87205; 93005; 96361; 96365; 96366; 96367; 96368; 97161; 99222; 99285; J0696; J7120; Q9967

== ENCOUNTER → 2023-11-14 12:51 | Outpatient (BNV) | payer MEDICARE, SELFPAY | PROVIDERS: Admitting Provider Internal Medicine; Emergency Provider Emergency Medicine; PCP Internal Medicine; Visit Provider Internal Medicine | DX: R94.31 Abnormal electrocardiogram [ECG] [EKG] (principal) | CPT/HCPCS: 93010 ==

== ENCOUNTER → 2023-11-14 18:22 | Outpatient (BNV) | payer MEDICARE, SELFPAY | PROVIDERS: Admitting Provider Internal Medicine; Emergency Provider Emergency Medicine; PCP Internal Medicine; Visit Provider Psychiatry & Neurology Neurology | DX: F03.C18 Unspecified dementia, severe, with other behavioral disturbance (principal) | CPT/HCPCS: 99222 ==

== ENCOUNTER → 2023-11-14 18:22 | Outpatient (BNV) | payer MEDICARE, SELFPAY | PROVIDERS: Admitting Provider Internal Medicine; Emergency Provider Emergency Medicine; PCP Internal Medicine; Visit Provider Internal Medicine | DX: F03.90 Unspecified dementia, unspecified severity, without behavioral disturbance, psychotic disturbance, mood disturbance, and anxiety (principal); I95.1 Orthostatic hypotension; J18.9 Pneumonia, unspecified organism | CPT/HCPCS: 99222; 99232; 99239; G0180 ==

== ENCOUNTER → 2023-12-22 11:27 | Outpatient (BNV) | payer MEDICARE, SELFPAY | PROVIDERS: PCP Internal Medicine; Visit Provider Internal Medicine | DX: R19.00 Intra-abdominal and pelvic swelling, mass and lump, unspecified site (principal) | CPT/HCPCS: 99204 ==

== ENCOUNTER 2024-01-02 13:50 | Outpatient (AMB) | payer MEDICARE, SELFPAY ==
[2024-01-02 14:01] VITALS: BP 138/70; PULSE 79; BMI 22.1
--- NOTE | 2024-01-02 14:01 | A.OFFVIS_ITS ---
Vital Signs 01/02/24 14:01 01/02/24 14:33 01/02/24 14:33 01/02/24 14:33 01/02/24 14:45 Height 5 ft 8 in Weight 145 lb 8.081 oz BMI 22.1 BP 138/70 157/85 H 139/79 149/85 H 128/68 Blood Pressure Location Lt brachial Lt brachial Lt brachial Lt brachial Lt brachial Position Sitting Supine Sitting Standing Sitting Pulse 79 67 69 77 Pulse Source Pulse Oximeter Pulse Oximeter Pulse Oximeter Pulse Oximeter Intake Visit Reasons: Ed Follow up-Aortic/Pulmnary Anerusm Allergies No Known Allergies Allergy (Verified 12/22/23 11:41) Medication List - Last Reconciled 01/02/24 by Sisi Chahal NP amlodipine 2.5 mg See Protocol PO DAILY aspirin 81 mg PO DAILY harry.stocking,knee,reg,smal (T.E.D. Knee Eisvga-T-Cbnnlue misc) As directed levothyroxine 25 mcg PO DAILY multivitamin 1 tab PO DAILY simvastatin 20 mg PO BEDTIME HPI Comments Details: 88-year-old male presents today for a new visit. He was [place] [facility] [place] He had a fall and was found to have pneumonia, orthostatic hypotension, and new found abonimal mass. 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 He has a history of dementia, hypertension, and hyperlipidemia. He reports he has been feeling well since discharged. He has seen Dr Glasgow in Oncology and is seeing Dr Mejia in Neurology on 01/23. His blood pressures at home have been mostly 120s. [facility] Medical History (Updated 01/05/24 @ 14:33 by Sisi Chahal NP) Pulmonary artery aneurysm Thoracic aortic aneurysm Hypertension Prostate cancer Aphasia Dementia Family History (Updated 12/22/23 @ 12:21 by Lorena Glasgow MD) Mother Alzheimer dementia Social History (Updated 01/02/24 @ 14:08 by Cassie Nieves) Household Members: Spouse Housing: Assisted Living Facility Do you presently have visiting nurse or other home services: No Alcohol intake: current Alcohol intake frequency: holidays/special occasions only Comment: WINE Patient Tobacco Use Status: Never used Tobacco service: Yes ([employer]) Current occupational status: retired Review of Systems Const Denies weakness ENT Denies dizziness Card Denies chest pain, Denies chest pain with activity, Denies syncope, Denies rapid heart rate, Denies pedal edema, Denies edema, Denies leg edema, Denies lightheadedness, Denies palpitations, Denies dyspnea, Denies dyspnea on exertion and Denies orthopnea Resp Denies cough, Denies dyspnea and Denies dyspnea on exertion GI Denies hematochezia and Denies change in stool character Musc Denies abnormal gait, Denies muscle cramps, Denies muscle weakness, Denies numbness, Denies radiating pain into limb and Denies tingling Neuro Denies abnormal gait, Denies dizziness, Denies syncope, Denies numbness, Denies tingling and Denies weakness Endo Denies palpitations Physical Exam Vital Signs: Last Vital Signs Pulse 77 01/02/24 14:33 BP 128/68 01/02/24 14:45 BMI result Body Mass Index 22.1 Assessment & Plan Assessment & Plan (1) Thoracic aortic aneurysm: Code(s): I71.20 - Thoracic aortic aneurysm, without rupture, unspecified Category: Medical Plan: Chest CTA showed THORACIC AORTA: Measures 4.2 x 4.1 cm in transverse dimension. Tight blood pressure and cholesterol levels discussed. Will need surveillance. (2) Hypertension: Code(s): I10 - Essential (primary) hypertension Category: Medical Plan: Blodo pressure better controlled. Will increase amlodipine to 5mg. Monitor BPs at home. Log and bring to next appointment. 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 Advised hydrating well. Not orthostatic today. Plan Will get labs to assess cholesterol levels and a echocardiogam to assess structure of heart. ED care if needed. Orders: Orders Lipid Panel 01/02/24 I10 - Essential (primary) hypertension Basic Metabolic Panel 01/02/24 I10 - Essential (primary) hypertension CA echo transthoracic complete 01/02/24 I10 - Essential (primary) hypertension Referrals Pulmonology Referral I28.1 - Aneurysm of pulmonary artery Medications: Changed From amlodipine 2.5 mg See Protocol PO DAILY 60 tabs 0RF To amlodipine 5 mg See Protocol PO DAILY 30 tabs 3RF 30 days Discontinued cefuroxime axetil Discontinued Reason: Patient no longer taking 500 mg PO Q12H 12 tabs 0RF Coding Level of Care Code New Pt Level 4 (32633) Diagnoses Thoracic aortic aneurysm I71.20 Hypertension I10 Pulmonary artery aneurysm I28.1 Syncope R55
[2024-01-02 14:33] VITALS: BP 139/79; BP 149/85; BP 157/85; PULSE 67; PULSE 69; PULSE 77
[2024-01-02 14:45] VITALS: BP 128/68
== END 2024-01-02 14:51 | disposition home or self-care (01) ==
PROVIDERS: PCP Internal Medicine; Visit Provider Nurse Practitioner
DX: I71.20 Thoracic aortic aneurysm, without rupture, unspecified (principal); I10 Essential (primary) hypertension; I28.1 Aneurysm of pulmonary artery; R55 Syncope and collapse
CPT/HCPCS: 99204

== ENCOUNTER → 2024-01-02 13:50 | Outpatient (BNVA) | payer MEDICARE, SELFPAY | PROVIDERS: PCP Internal Medicine; Visit Provider Nurse Practitioner | DX: I71.20 Thoracic aortic aneurysm, without rupture, unspecified (principal); I10 Essential (primary) hypertension; I28.1 Aneurysm of pulmonary artery; R55 Syncope and collapse | CPT/HCPCS: 99202 ==

== ENCOUNTER 2024-01-16 13:53 | Outpatient (AMB) | payer MEDICARE, SELFPAY ==
[2024-01-16 13:54] VITALS: BP 112/70; PULSE 72; O2SAT 96; BMI 22.4
--- NOTE | 2024-01-16 13:54 | A.OFFVIS_ITS ---
Vital Signs 01/16/24 13:54 Height 5 ft 8 in Weight 147 lb 2 oz BMI 22.4 BP 112/70 Blood Pressure Location Rt brachial Position Sitting Pulse 72 Pulse Source Pulse Oximeter Pulse Oximetry (%) 96 Oxygen Delivery Method Room Air Intake Visit Reasons: Abnormal CT scan Allergies No Known Allergies Allergy (Verified 01/16/24 13:58) HPI HPI Abnormal CT scan: Details: Karsten is apl easant 88 year old male, never smoker, with underlying primary progressive aphasia and HTN. He was referred by [facility] after incidental finding on CTA. He is accompanied by who provides most of history. He presented to ED on 11/13 s/p fall and had imaging performed revealed possible RML consolidation and enlarged pulmonary artery, full report below. At the time he denied any respiratory symptoms, however was treated with doxycyline and cefuroxime, completing full 10 day course. 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 He does note more difficulties with choking when eating, however states it is infrequent. Denies prior MBSS. 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 He was reportedly told there was complete collapse of RML, with the possibility of never reinflating due to severity of infection. He denies any prior h/o asthma. He denies pertinent family history. 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 [facility] Medical History (Updated 01/16/24 @ 14:12 by Latha Cortes NP) Pulmonary artery aneurysm Thoracic aortic aneurysm Hypertension Prostate cancer Aphasia Dementia Family History (Updated 12/22/23 @ 12:21 by Lorena Glasgow MD) Mother Alzheimer dementia Social History Household Members: Spouse Housing: Assisted Living Facility Do you presently have visiting nurse or other home services: No Alcohol intake: current Alcohol intake frequency: holidays/special occasions only Comment: WINE Patient Tobacco Use Status: Never used Tobacco service: Yes ([employer]) Current occupational status: retired Review of Systems Const Denies chills, Denies excessive sweating, Denies fever(s), Denies headache(s) and Denies night sweats Eyes Denies dry eyes, Denies irritation and Denies itchy eyes ENT Reports Normal hearing present, Denies headache(s), Denies nasal congestion, Denies nasal discharge, Denies post nasal drip and Denies sore throat Card Denies chest pain, Denies chest pain at rest, Denies chest pain with activity, Denies claudication, Denies leg edema, Denies dyspnea, Denies dyspnea on exertion, Denies orthopnea and Denies paroxysmal nocturnal dyspnea Resp Denies chest congestion, Denies cough, Denies excessive phlegm production, Denies pain on inspiration, Denies pain with cough, Denies dyspnea, Denies dyspnea on exertion, Denies stridor and Denies wheezing Musc Denies myalgias Neuro Reports Normal hearing present and Denies headache(s) Endo Denies excessive sweating Jb/Lymph Denies lymphadenopathy Aller/Immun Denies itchy eyes, Denies seasonal rhinorrhea and Denies wheezing Physical Exam Vital Signs: Last Vital Signs Pulse 72 01/16/24 13:54 BP 112/70 01/16/24 13:54 Pulse Ox 96 01/16/24 13:54 Oxygen Delivery Method Room Air 01/16/24 13:54 BMI result Body Mass Index 22.4 Last Vital Signs Temp 97.8 F 11/16/23 11:17 Pulse 67 11/16/23 11:17 Resp 18 11/16/23 11:17 BP 143/71 H 11/16/23 11:17 Pulse Ox 95 11/16/23 11:17 O2 Del Method Room Air 11/16/23 11:17 Oxygen Flow Rate 2 11/14/23 12:09 BMI result Body Mass Index 25.2 Const General: cooperative, healthy appearing, comfortable, no acute distress, well developed and alert HEENT Head: Yes normal to inspection, Yes normocephalic and Yes atraumatic Ears: hearing grossly normal bilaterally and external ears normal Eyes General: appearance normal, both eyes and all related structures Eyelids: Yes eyelids normal Sclerae: sclerae normal EOM: EOMs intact bilaterally Neck Neck: Yes normal visual inspection and Yes no lymphadenopathy Lymphatic: no lymphadenopathy noted Chest Chest palpation & inspection: normal inspection of the chest Resp Effort & Inspection: normal respiratory effort, able to speak in complete sent ences, no audible wheezes, no cough, no stridor, not tachypneic, no tripod positioning and no use of accessory muscles Auscultation: clear to auscultation bilaterally Cardio Jugular venous distension: no JVD Rate: regular rate Rhythm: regular rhythm Skin Other: warm, dry General skin exam: no rashes or lesions noted Neuro Cranial nerves: Yes Normal hearing present Gait exam (Neuro): Normal gait present Extrem General: Yes normal to inspection, Yes capillary refill normal, Yes no clubbing, cyanosis or edema and Yes no pedal edema Psych Appearance: grossly normal and well kempt Speech and movement: Normal speech and movement present and Clear speech present Affect: normal affect Attitude: cooperative Thought process: Circumstantial thought process present Insight: Limited insight present (Psych) Judgement: Limited judgement present (Psych) Results Reviewed Results Reviewed: [address] [address] [address] Scan Report Signed Patient: Karsten Mendez MR#: [id number] : 1935 Acct:[id number] Age/Sex: 88 / M ADM Date: 11/14/23 Loc: .ED Attending Dr: Ordering Physician: Tino Stallings MD Date of Service: 11/14/23 Procedure(s): CT angio chest PE protocol Accession Number(s): [id number] cc: DYLAN BRUNO MD; Tino Stallings MD~ EXAMINATION: CT ANGIOGRAM OF THE CHEST WITH AND WITHOUT CONTRAST (CT PULMONARY ANGIOGRAM FOR PE) CLINICAL INFORMATION: Reason for Exam syncope COMPARISON: None available. TECHNIQUE: Prior to contrast administration, noncontrast localization images were obtained. Subsequently, multidetector volumetric imaging was performed from the thoracic inlet to below the diaphragms following the administration of 85 mL Omnipaque 350 intravenous contrast. No contrast reaction reported Sagittal, coronal, and MIP oblique sagittal reformatted images were obtained on the CT workstation, uploaded to PACS, and reviewed. This CT examination was performed using dose optimization techniques as appropriate, variously including the following: *Automated exposure control *Adjustment of mA and/or kV according to patient size (this includes techniques or standardized protocols for targeted exams where dose is matched to indication/reason for exam; i.e. extremities or head) *Use of iterative reconstruction technique Total exam dose-length product 340.87 mGy-cm FINDINGS: QUALITY OF STUDY/CONTRAST BOLUS: Satisfactory. PULMONARY ARTERIES: No pulmonary emboli. 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 THORACIC AORTA: Measures 4.2 x 4.1 cm in transverse dimension. LUNG: No suspicious pulmonary nodules. Patchy airspace disease in the left lower lobe and superior segment right lower lobe. Right middle lobe consolidation. Central airways are patent. PLEURA: No pleural effusion. MEDIASTINUM: 9 mm hypodense right thyroid nodule. The left thyroid lobe is asymmetrically smaller. Heart is enlarged. No pericardial effusion. No mediastinal lymphadenopathy. No evidence of septal bowing or right heart strain. CORONARY ARTERY CALCIFICATION: Moderate. CHEST WALL/AXILLA: No axillary or internal mammary lymphadenopathy. OSSEOUS STRUCTURES: No destructive bone lesions. UPPER ABDOMEN: Please see separately dictated report. No reflux of contrast into the hepatic veins to suggest elevated right heart pressures. CT/CT angio chest PE protocol IMPRESSION: No evidence of pulmonary embolus. Right middle lobe consolidation. Patchy airspace disease in the left lower lobe and superior segment right lower lobe. This may represent multifocal pneumonia. Advise clinical correlation and short interval follow-up imaging. Focal outpouching of the left main pulmonary artery measuring 2.1 x 1.6 x 2.8 cm likely representing an aneurysm. Thoracic aortic aneurysm. 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 Will send for CXR today to assess for resolution of possible pneumonia. Will reach out to Dr. Geller to review CTA and input for further recommendations other than surveillance and blood pressure control. Discussed with patient the likelihood of no interventions and if Karsten develops hemoptysis to seek emergent care. At this time respiratory exam unremarkable and he denies any respiratory symptoms. Aware to call if symptoms develop. Discussed the possibility of microaspirating, will consider MBSS in the future. All questions were answered and patient is in agreement of plan. Will follow up to review results of CXR and input from Dr. Geller. Orders: Orders XR chest 2V 01/16/24 Z87.01 - Personal history of pneumonia (recurrent) Coding Level of Care Code New Pt Level 4 (03996) Diagnoses Pulmonary artery aneurysm I28.1 History of recent pneumonia Z87.01
== END 2024-01-16 14:30 | disposition home or self-care (01) ==
PROVIDERS: PCP Internal Medicine; Referring Provider Nurse Practitioner; Visit Provider Nurse Practitioner Family
DX: I28.1 Aneurysm of pulmonary artery (principal); Z87.01 Personal history of pneumonia (recurrent)
CPT/HCPCS: 99204; 99214

== ENCOUNTER 2024-01-16 13:53 | Outpatient (REF) | payer MEDICARE, SELFPAY ==
--- NOTE | ~2024-01-16 | XR_ITS ---
EXAMINATION: XR CHEST CLINICAL INFORMATION: Personal history of pneumonia. COMPARISON: CT chest November 14, 2023. TECHNIQUE: 2 views of the chest were obtained. FINDINGS: There is no gross pneumothorax. Heart size is normal. Degenerative changes in the thoracic spine. Trace right pleural effusion. Heart size is normal. Streaky opacities in the right mid and lower lung may represent subsegmental atelectasis, and/or an infectious/inflammatory process. XR/XR chest 2V IMPRESSION: 1. Streaky opacities in the right mid and lower lung may represent subsegmental atelectasis, and/or an infectious/inflammatory process. 2. Trace right pleural effusion.
== END 2024-01-16 13:54 | disposition home or self-care (01) ==
LOC: HO.XRAY 13:53
PROVIDERS: PCP Internal Medicine; Referring Provider Nurse Practitioner; Visit Provider Nurse Practitioner Family
DX: Z87.01 Personal history of pneumonia (recurrent) (principal); I28.1 Aneurysm of pulmonary artery
CPT/HCPCS: 71046; 99202

== ENCOUNTER → 2024-01-20 14:09 | Outpatient (REF) | payer MEDICARE, SELFPAY ==
--- NOTE | 2024-01-20 14:13 | CA_ITS ---
Transthoracic Echocardiogram Patient (Last, First, Middle): Karsten Mendez, Gender: Male Date of : 1935 Age: 88 Procedure Date: 01/20/2024 Procedure Type: Transthoracic Echocardiogram Location: OP Height: 172.72 cm Weight: 66.68 kg BSA: 1.79 m2 Heart Rate: bpm BP: 130 / 70 mmHg Lapeler: TO Referring MD: Sisi Chahal PROPOSAL COORDINATOR Assistant Superintendent For Curriculum: Preet Willis MD Symptoms: I10 - Essential (primary) hypertension Study Quality: Fair ECG Rhythm: Sinus Conclusions: - 1. Normal LV ejection fraction 55-60% with impaired relaxation filling pattern 2. Calcific aortic valve changes noted with mild aortic regurgitation 3. 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 No gross pericardial effusion Findings Left Ventricle Normal left ventricular size, thickness, and systolic function. The visually estimated ejection fraction is between 55-60%. Spectral Doppler is indicative of an impaired relaxation filling pattern. E/E prime ratio is between 8 and 15 consistent with indeterminate filling pressures. Right Ventricle Normal right ventricular cavity size and systolic function. Atria Both atria are normal in size. There is no evidence of interatrial shunt. Aortic Valve There is mild calcification of the aortic valve. There is mild thickening of the aortic valve. There is no aortic valve stenosis. There is mild aortic valve regurgitation. Mitral Valve There is mild anterior and posterior mitral leaflet thickening. There is mild mitral annular calcification. There is trace mitral valve regurgitation. There is no mitral valve stenosis. Pulmonic Valve The pulmonic valve is likely normal. Tricuspid Valve Normal tricuspid valve structure. Tricuspid regurgitation envelope is inadequate for calculation of right ventricular systolic pressure. Normal right atrial pressure. Great Vessels The pulmonary artery was not well visualized. There is mild dilatation of the ascending aorta measuring 4.20 cm. Small plaque is seen in the sino tubular ridge. Venous The inferior vena cava is normal in size and collapses greater than 50% with inspiration. Pericardium/Pleural There is no evidence of pericardial effusion. Prior Study Comparison No prior study available for comparison. Measurements 2D Linear Measurements IVSd: 0.95 0.6-0.9/0.6-1.0 cm LVIDd: 4.14 3.9-5.3/4.2-5.9 cm LVIDd Index: 2.31 2.4-3.2/2.2-3.1 cm/m2 LVIDs: 2.61 2.0-3.6 cm LVPWd: 0.85 0.7-1.1 cm LA Diam: 2.70 2.7-3.8/3.0-4.0 cm LAIDs Index: 1.51 1.5-2.3 cm/m2 LV Mass: 144.06 67-162/88-224 g LV Mass Index: 80.48 43-95/49-115 g/m2 LVOT Diam: 2.10 3.0+(-)1.3 cm 2D Systolic Function EF 4C: 62.00 >55% EF 2C: 55.70 >55% EF BiP: 58.30 >55% Mitral Valve MV Pk E: 0.49 MV PK A: 0.72 MV Decel Time: 219.00 E/A: 0.70 E'Lateral: 7.94 E'Medial: 4.90 E/E' Med: 10.00 E/E' Lat: 6.10 PHT: 64.00 MVA PHT: 3.44 Decel Childress: 2.23 Aortic Valve AoV Pk Dion: 1.62 AoV Mn Dion: 1.07 AoV VTI: 0.31 AoV Pk Grad: 10.00 Aov Mn Grad: 5.00 PRACHI Cont.VTI: 2.67 LVOT LVOT Pk Dion: 1.11 LVOT Mn Dion: 0.71 LVOT VTI: 0.24 LVOT Pk Grad: 5.00 LVOT Mn Grad: 2.00 LVOT Diam: 2.10 LVOT Area: 3.46 Diastolic Function MV Pk E: 0.49 MV Pk A: 0.72 E/A: 0.70 E'Medial: 4.90 E/E' Med: 10.00 E' Laterial: 7.94 E/E' Lat: 6.10 Right Ventricle TAPSE (mm): 23.00 TVS' Dion: 11.00 Tricuspid Valve RA Press: 3.00 Great Vessels Aorta Sinus of Valsalva: 3.69 2.0-3.5 cm Ao Asc: 4.20 2.1-3.4 cm Ao Arch: 3.30 Updated in Other Vendor System with Status of Final Preet Willis MD electronically signed on 01/21/2024 12:10:15 PM with status of Final
== END ==
LOC: HO.CARD 14:09
PROVIDERS: PCP Internal Medicine; Visit Provider Nurse Practitioner
DX: I10 Essential (primary) hypertension (principal)
CPT/HCPCS: 93306

== ENCOUNTER → 2024-01-20 14:13 | Outpatient (BNV) | payer MEDICARE, SELFPAY | PROVIDERS: PCP Internal Medicine; Visit Provider Internal Medicine Cardiovascular Disease | DX: I35.1 Nonrheumatic aortic (valve) insufficiency (principal); I34.81 Nonrheumatic mitral (valve) annulus calcification | CPT/HCPCS: 93306 ==

== ENCOUNTER 2024-01-26 10:57 | Outpatient (REF) | payer MEDICARE, SELFPAY ==
[2024-01-26 12:39] LABS: Blood Urea Nitrogen 20 mg/dL (9-16); Estimated Glomerular Filt Rate > 60
== END 2024-01-26 10:58 | disposition home or self-care (01) ==
LOC: HO.LAB 10:57
PROVIDERS: PCP Internal Medicine; Visit Provider Psychiatry & Neurology Neurology
DX: G30.9 Alzheimer's disease, unspecified (principal); I67.9 Cerebrovascular disease, unspecified
CPT/HCPCS: 36415; 82565; 84520

== ENCOUNTER 2024-02-18 16:23 | Outpatient (REF) | payer MEDICARE, SELFPAY ==
[2024-02-18 17:43] LABS: Blood Urea Nitrogen 21 mg/dL (9-16); Estimated Glomerular Filt Rate > 60
== END 2024-02-18 16:24 | disposition home or self-care (01) ==
LOC: HO.LAB 16:23
PROVIDERS: PCP Internal Medicine; Visit Provider Psychiatry & Neurology Neurology
DX: I67.1 Cerebral aneurysm, nonruptured (principal); I67.9 Cerebrovascular disease, unspecified
CPT/HCPCS: 36415; 82565; 84520

== ENCOUNTER 2024-03-04 13:39 | Outpatient (AMB) | payer MEDICARE, SELFPAY ==
--- NOTE | 2024-03-04 13:47 | A.OFFVIS_ITS ---
Vital Signs 03/04/24 13:48 Height 5 ft 8 in Weight 143 lb 4.807 oz BMI 21.8 BP 116/58 L Blood Pressure Location Lt brachial Position Sitting Pulse 72 Pulse Source Pulse Oximeter Intake Visit Reasons: 2m follow up Allergies No Known Allergies Allergy (Verified 01/16/24 13:58) Medication List - Last Reconciled 03/04/24 by Sisi Chahal NP amlodipine 5 mg See Protocol PO DAILY 90 days aspirin 81 mg PO DAILY harry.stocking,knee,reg,smal (T.E.D. Knee Kcgnfm-G-Tkwltso misc) As directed ferrous sulfate (Feosol) 325 mg PO DAILY levothyroxine 25 mcg PO DAILY mecobalamin (vitamin B12) (B12 Active) 1,000 mcg PO DAILY multivitamin 1 tab PO DAILY simvastatin 20 mg PO BEDTIME HPI Comments Details: 88-year-old male presents today for a follow-upt. He was [place] [facility] [place] He had a fall and was found to have pneumonia, orthostatic hypotension, and new found abdominal mass. 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 He has a history of dementia, hypertension, and hyperlipidemia. He reports he has been feeling well and denies any dizziness, syncope, chest pains, shortness, or swelling.. His blood pressures at home have been mostly 120s. He presents with his partner. [facility] Medical History Pulmonary artery aneurysm Thoracic aortic aneurysm Hypertension Prostate cancer Aphasia Dementia Family History Mother Alzheimer dementia Social History Household Members: Spouse Housing: Assisted Living Facility Do you presently have visiting nurse or other home services: No Alcohol intake: current Alcohol intake frequency: holidays/special occasions only Comment: WINE Patient Tobacco Use Status: Never used Tobacco service: Yes ([employer]) Current occupational status: retired Review of Systems Const Denies weakness ENT Denies dizziness Card Denies chest pain, Denies chest pain with activity, Denies syncope, Denies rapid heart rate, Denies pedal edema, Denies edema, Denies leg edema, Denies lightheadedness, Denies palpitations, Denies dyspnea, Denies dyspnea on exertion and Denies orthopnea Resp Denies cough, Denies dyspnea and Denies dyspnea on exertion GI Denies hematochezia and Denies change in stool character Musc Denies abnormal gait, Denies muscle cramps, Denies muscle weakness, Denies numbness, Denies radiating pain into limb and Denies tingling Neuro Denies abnormal gait, Denies dizziness, Denies syncope, Denies numbness, Denies tingling and Denies weakness Endo Denies palpitations Physical Exam Vital Signs: Last Vital Signs Pulse 72 03/04/24 13:48 BP 116/58 L 03/04/24 13:48 BMI result Body Mass Index 21.8 Const General: healthy appearing and no acute distress Orientation/consciousness: patient oriented x3 HEENT Head: Yes normal to inspection Eyes General: appearance normal, both eyes and all related structures Neck Neck: Yes normal visual inspection Chest Chest palpation & inspection: normal inspection of the chest Resp Effort & Inspection: normal respiratory effort Auscultation: clear to auscultation bilaterally Cardio Jugular venous distension: no JVD Palpation: normal PMI Rate: regular rate Rhythm: regular rhythm Heart sounds: S1 normal heart sound present, S2 normal heart sound present, no click, no gallops, no murmurs and no rubs GI Inspection: Yes normal to inspection Palpation (GI): Soft to palpation Skin General skin exam: no rashes or lesions noted Neuro General: patient oriented x3 Extrem General: Yes normal to inspection Psych Appearance: grossly normal Results Reviewed Results Reviewed: Conclusions: - 1. Normal LV ejection fraction 55-60% with impaired relaxation filling pattern 2. Calcific aortic valve changes noted with mild aortic regurgitation 3. 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 No gross pericardial effusion Assessment & Plan Assessment & Plan (1) Thoracic aortic aneurysm: Code(s): I71.20 - Thoracic aortic aneurysm, without rupture, unspecified Category: Medical (2) Hypertension: Code(s): I10 - Essential (primary) hypertension Category: Medical (3) Syncope: Code(s): R55 - Syncope and collapse Category: Medical Plan Chest CTA showed THORACIC AORTA: Measures 4.2 x 4.1 cm in transverse dimension. Tight blood pressure and cholesterol levels discussed. Will need surveillance. Blood pressures have been well controlled at home. Mostly 110 [id number] systolic. Echocardiogram showed normal LV ejection fraction of 55-60% with impaired relaxation filling pattern. Calcific aortic valve changes noted with mild aort ic regurgitation. Mildly dilated ascending aorta at 4.2 cm. He is on amlodipine 5 mg daily and aspirin 81 mg. On simvastatin 20 mg. Patient did not get lab work done after last appointment. He is due for lab work, April with his primary care doctor. Requested those labs be forwarded to us. He had a syncopal episode which resulted in the emergency room visits. He was having poor intake and had pneumonia. Has not had any other symptoms since then. Coding Level of Care Code Est Pt Level 4 (43874) Diagnoses Thoracic aortic aneurysm I71.20 Hypertension I10 Syncope R55
[2024-03-04 13:48] VITALS: BP 116/58; PULSE 72; BMI 21.8
== END 2024-03-04 14:15 | disposition home or self-care (01) ==
PROVIDERS: PCP Internal Medicine; Visit Provider Nurse Practitioner
DX: I71.20 Thoracic aortic aneurysm, without rupture, unspecified (principal); I10 Essential (primary) hypertension; R55 Syncope and collapse
CPT/HCPCS: 99214

== ENCOUNTER → 2024-03-04 13:39 | Outpatient (BNVA) | payer MEDICARE, SELFPAY | PROVIDERS: PCP Internal Medicine; Visit Provider Nurse Practitioner | DX: I71.20 Thoracic aortic aneurysm, without rupture, unspecified (principal); I10 Essential (primary) hypertension; R55 Syncope and collapse | CPT/HCPCS: 99212 ==

== ENCOUNTER 2024-03-09 10:42 | Outpatient (REF) | payer MEDICARE, SELFPAY ==
--- NOTE | ~2024-03-09 | CT_ITS ---
EXAMINATION: CT angio head CLINICAL INFORMATION: Cerebral artery aneurysm. COMPARISON: CT head 11/14/2023. TECHNIQUE: Nurseryman Assistant images were obtained. A CT angiogram of the head was performed in the arterial phase after the intravenous administration of 75 mL Omnipaque 350. Pre and delayed postcontrast images of the head were also obtained. 3D images were processed on an independent workstation under concurrent supervision. Arterial stenoses are measured in accordance with NASCET criteria or similar method if applicable. This CT examination was performed using dose optimization techniques as appropriate, including one or more of the following: Automated exposure control, iterative reconstruction, and adjustment of technique factors (mA and/or kVp) according to patient size (this includes techniques or standardized protocols for targeted exams where dose is matched to indication/reason for exam). Fleischner Society criteria for the followup of incidental pulmonary nodules was implemented if appropriate. Total exam dose-length product 2452 mGy-cm FINDINGS: Head: There is no acute intracranial hemorrhage or abnormal extra-axial collection. Postcontrast images reveal no abnormal intracranial mass or enhancement. There is no intracranial mass effect or midline shift. Lateral and third ventricles are normal. No hydrocephalus. L5 foci of hypoattenuation are visualized within the periventricular white matter. Sellers-white matter differentiation is otherwise preserved and there is no evidence of an acute territorial infarct. The calvarium and skull base are intact. Mastoid air cells and middle ear cavities are well aerated. No active paranasal sinus disease. CT angiogram head: Intracranial internal carotid arteries are normal. The intradural vertebral artery segments and basilar artery are normal. 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 This finding is best depicted on axial image 98 of 261 series 7 measuring up to 0.5 cm in maximal transaxial dimension. Anterior, middle, and posterior cerebral artery complex are otherwise unremarkable. No intracranial large vessel occlusion. 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 Otherwise unremarkable CT angiogram of the head. No intracranial large vessel occlusion. There are a few scattered chronic small vessel ischemic changes within the periventricular white matter. No evidence of acute territorial infarct or hemorrhage. No abnormal intracranial mass or enhancement. Electronically signed by: Santiago Lacey MD 03/09/2024 01:42 PM EDT RP
[2024-03-09] MEDS: iohexoL 350 MG/ML 100 ML INFUS..BTL 75 ML IV (11:48)
== END 2024-03-09 10:43 | disposition home or self-care (01) ==
LOC: HO.CT 10:42
PROVIDERS: PCP Internal Medicine; Visit Provider Psychiatry & Neurology Neurology
DX: I67.1 Cerebral aneurysm, nonruptured (principal)
CPT/HCPCS: 70496; Q9967

== ENCOUNTER 2024-08-25 13:26 | Outpatient (AMB) | payer MEDICARE, SELFPAY ==
[2024-08-25 13:31] VITALS: BP 122/62; PULSE 74; BMI 20.4
--- NOTE | 2024-08-25 13:31 | A.OFFVIS_ITS ---
Vital Signs 08/25/24 13:31 Height 5 ft 8 in Weight 134 lb 7.712 oz BMI 20.4 BP 122/62 Blood Pressure Location Lt brachial Position Sitting Pulse 74 Pulse Source Pulse Oximeter Intake Visit Reasons: 6m follow up Allergies No Known Allergies Allergy (Verified 01/16/24 13:58) Medication List - Last Reconciled 08/25/24 by Didier Faye MD aspirin 81 mg PO DAILY harry.stocking,knee,reg,smal (T.E.D. Knee Dzesmo-D-Uxyfzin misc) As directed ferrous sulfate (Feosol) 325 mg PO DAILY levothyroxine 25 mcg PO DAILY mecobalamin (vitamin B12) (B12 Active) 1,000 mcg PO DAILY multivitamin 1 tab PO DAILY simvastatin 20 mg PO BEDTIME HPI Comments Details: Veena is here for follow-up. Previously seen by nurse practitioner. A prior echocardiogram had shown ascending aortic dilatation 4.2 cm lead into the referral. Patient himself does not have any clear-cut cardiac symptoms. Many comorbidities including dementia. According to his partner, he has been doing okay. No clear-cut concerns like angina or shortness of breath or in fact any cardiac symptoms. No previous history of any coronary disease or myocardial infarction or cardiomyopathy. [facility] Medical History (Updated 08/25/24 @ 16:07 by Didier Faye MD) Pulmonary artery aneurysm Thoracic aortic aneurysm Hypertension Prostate cancer Aphasia Dementia Family History Mother Alzheimer dementia Social History Household Members: Spouse Housing: Assisted Living Facility Do you presently have visiting nurse or other home services: No Alcohol intake: current Alcohol intake frequency: holidays/special occasions only Comment: WINE Patient Tobacco Use Status: Never used Tobacco Use of substances other than those prescribed or required for medical reasons: No Do you feel safe in your current relationship?: Yes Do you have thoughts of harming others: None Do you have a plan to hurt others: No Plan service: Yes ([employer]) Current occupational status: retired Review of Systems Const Denies weakness ENT Denies dizziness Card Denies chest pain, Denies chest pain with activity, Denies syncope, Denies rapid heart rate, Denies pedal edema, Denies edema, Denies leg edema, Denies lightheadedness, Denies palpitations, Denies dyspnea, Denies dyspnea on exertion and Denies orthopnea Resp Denies cough, Denies dyspnea and Denies dyspnea on exertion GI Denies hematochezia and Denies change in stool character Musc Denies abnormal gait, Denies muscle cramps, Denies muscle weakness, Denies numbn ess, Denies radiating pain into limb and Denies tingling Neuro Denies abnormal gait, Denies dizziness, Denies syncope, Denies numbness, Denies tingling and Denies weakness Endo Denies palpitations Physical Exam Vital Signs: Last Vital Signs Pulse 74 08/25/24 13:31 BP 122/62 08/25/24 13:31 BMI result Body Mass Index 20.4 Const General: comfortable and no acute distress Orientation/consciousness: patient oriented x3 HEENT Other: Unremarkable Head: Yes normal to inspection Neck Neck: Yes normal visual inspection Chest Chest palpation & inspection: normal inspection of the chest Resp Auscultation: clear to auscultation bilaterally Cardio Palpation: normal PMI Heart sounds: S1 normal heart sound present, S2 normal heart sound present, no gallops, no murmurs and no rubs GI Palpation (GI): Soft to palpation Back/Spine/Pelvis Other: unremarkable Skin General skin exam: no rashes or lesions noted Neuro General: patient oriented x3 Extrem General: Yes normal to inspection Psych Mental Status: mental status grossly normal Office Procedures EKG Details: EKG with underlying sinus rhythm at 74/Min; leftward axis; right bundle-branch block pattern; OR interval 202 milliseconds [place]. [id number], Complete Assessment & Plan Assessment & Plan (1) Ascending aorta dilatation: Code(s): I77.810 - Thoracic aortic ectasia Category: Medical Plan: In prior echocardiogram, ascending aortic size 4.2 cm. Discussed about the fact that even it enlarges in size most likely patient will not be a candidate for any interventions. Hence we can recheck it in a few months but after that, to decide if he actually needs active follow-up or not. His partner variable agrees with this. (2) Orthostasis: Code(s): I95.1 - Orthostatic hypotension Category: Medical Plan: A prior hospitalization for this but no recent issues. Also, it seems he has taken amlodipine in the past but not anymore. Today's blood pressure seems stable. (3) Dementia: Code(s): F03.90 - Unspecified dementia, unspecified severity, without behavioral disturbance, psychotic disturbance, mood disturbance, and anxiety Category: Medical Plan: Due to dementia, cardiac care will be likely conservative. Partner degrees. Orders: Orders CA echo transthoracic complete 6 Months I71.20 - Thoracic aortic aneurysm, without rupture, unspecified Coding Level of Care Code Est Pt Level 4 (17431) Complex EM visit Add On G2211 Diagnoses Ascending aorta dilatation I77.810 Orthostasis I95.1 Dementia F03.90 CPT Codes EKG - CPT: 55769-[id number], Complete ([id number])
== END 2024-08-25 14:01 | disposition home or self-care (01) ==
LOC: HO.HCS 13:27
PROVIDERS: PCP Internal Medicine; Visit Provider Internal Medicine
DX: I77.810 Thoracic aortic ectasia (principal); I95.1 Orthostatic hypotension; F03.90 Unspecified dementia, unspecified severity, without behavioral disturbance, psychotic disturbance, mood disturbance, and anxiety
CPT/HCPCS: 93010; 99214; G2211

== ENCOUNTER → 2024-08-25 13:26 | Outpatient (BNVA) | payer MEDICARE, SELFPAY | PROVIDERS: PCP Internal Medicine; Visit Provider Internal Medicine | DX: I77.810 Thoracic aortic ectasia (principal); I95.1 Orthostatic hypotension; F03.90 Unspecified dementia, unspecified severity, without behavioral disturbance, psychotic disturbance, mood disturbance, and anxiety; R94.31 Abnormal electrocardiogram [ECG] [EKG]; I45.10 Unspecified right bundle-branch block | CPT/HCPCS: 93005; 99212 ==

== ENCOUNTER 2025-01-14 11:38 | Emergency (ER) | payer MEDICARE, SELFPAY ==
--- NOTE | 2025-01-14 11:43 | ED_ITS ---
HPI - General Adult General Chief complaint: Fall Stated complaint: MECHANICAL FALL Time Seen by Provider: 01/14/25 11:43 History of Present Illness ED Provider: Isidro TURNER narrative: The patient is an 89-year-old male who lives with his . He has been diagnosed with dementia which has been fairly severe. This morning the says that the the patient was at the foot of the bed, having pulled off bed covers. There were also wet pants in the bathroom. The hypothesis is that the patient got up to go to the bathroom this morning, had problems with wetting his pants in the bathroom, took his pants off, and then stumbled trying to get back into the bed. The is an amputee and got into his wheelchair and with difficulty helped the patient get back into the bed. They live at the [facility]. The spoke to staff at the [facility] about today's episode. Additionally the says that the patient has had significant progression of his dementia over the last 3 months so that now he is forgetting the names of even the people with whom he lives and is having trouble with simple tasks like eating. Staff at [facility] recommended that they bring the patient to the emergency room for evaluation and to discuss ongoing management of the patient's progressive dementia. The patient is awake and alert and has no complaints. He is demented and is unable to really give any details of what happened this morning. There was no report of any fever, sweats, chills. No report of cough or sputum. No report of vomiting. The patient is not on any anticoagulants. Related Data Home Medications ?Medication ?Instructions ?Recorded ?Confirmed aspirin 81 mg chewable tablet 81 mg PO DAILY 11/14/23 08/25/24 multivitamin 1 tab PO DAILY 11/14/2308/14 simvastatin 20 mg tablet 20 mg PO BEDTIME 11/14/23 levothyroxine 25 mcg tablet 25 mcg PO DAILY 12/22/23 0 08/25/24 ferrous sulfate 325 mg (65 mg 325 mg PO DAILY 01/16/24 08/25/24 iron) tablet (Feosol) mecobalamin (vitamin B12) 1,000 1,000 mcg PO DAILY 08/0908/25/24 mcg chewable tablet (B12 Active) Previous Rx's ?Medication ?Instructions ?Recorded harry.stocking,knee,reg,smal #2 ea 11/16/23 (T.E.D. Knee Presgw-[facility] [place] Allergies Allergy/AdvReac Type Severity Reaction Status Date / Time No Known Allergies Allergy Verified 01/14/25 11:50 Review of Systems 2 Review of Systems: Yes all other systems are reviewed and are negative [facility] Past Medical History Medical History (Updated 01/14/25 @ 14:01 by Adam Felix MD) Pulmonary artery aneurysm Thoracic aortic aneurysm Hypertension Prostate cancer Aphasia Dementia Family History Family History Mother Alzheimer dementia Social History Social History Household Members: Spouse Housing: Assisted Living Facility Do you presently have visiting nurse or other home services: No Alcohol intake: current Alcohol intake frequency: holidays/special occasions only Comment: WINE Patient Tobacco Use Status: Never used Tobacco Advance Directives: No Advance Directives Information Provided: Yes Do you have a plan to hurt others: No Plan service: Yes ([employer]) Current occupational status: retired Physical Exam ED Vital Signs: Vital Signs - 24 hr 01/14/25 11:47 01/14/25 11:51 01/14/25 14:13 Temperature 97.7 F 97.7 F 97.7 F Pulse Rate 62 62 62 Respiratory Rate 16 16 16 Blood Pressure 143/78 H 143/78 H 143/78 H Pulse Oximetry 94 Oxygen Delivery Method Room Air BMI result Body Mass Index 20.6 Const Other: The patient is a slim, very well-groomed 89-year-old man who was awake and alert and does not seem in any distress. He is pleasant and cooperative. He seems pleasantly demented. HENMT Other: Face is symmetrical. Mucous membranes moist. Tongue is midline. Eyes Other: Pupils are round equal, conjunctivae are clear, extraocular movements intact General: appearance normal, both eyes and all related structures Neck Other: No posterior midline C-spine tenderness. No pain with range of motion. He has a an excellent range of motion without discomfort. C-spine is clinically clear. There is no adenopathy. No JVD. Resp Effort & Inspection: normal respiratory effort Auscultation: clear to auscultation bilaterally Cardio Rate: regular rate Rhythm: regular rhythm Heart sounds: S1 normal heart sound present and S2 normal heart sound present GI Other: The patient has a large mass in his left upper quadrant. This is nontender. Non pulsatile. The abdomen is otherwise soft and nontender. Skin Other: Skin is dry and unremarkable Neuro Other: The patient is awake and alert. He is pleasant and cooperative. He seems demented but very pleasantly demented. He is poorly oriented. He his was at the bedside but he could not name his subsequent. Cranial nerves 2-12 are intact. He moves his extremities normally. Finger-nose is normal. Strength is 5/5 in all extremities. Sensation is grossly intact. He seems demented but has no focal findings. He has a shuffling gait. He has no foot drag. No footdrop. He seemed reasonably steady without assistance. Extrem Other: No peripheral edema. No calf swelling or tenderness. He moves all extremities easily and normally with normal strength. Medical Decision Making Medical Decision Making MDM Narrative: The patient is an 89-year-old male with dementia. He is here after a fall this morning. He does not seem to have any significant injuries. Basic labs are unremarkable. EKGs unremarkable. Vital signs are unremarkable. His physical exam is very reassuring. Based on his family's description of recent episode that sounds as though his dementia has been fairly rapidly progressive over the last several weeks to months. I do not feel there is any obvious sign of any easily reversible process at the moment and I do not see an indication for additional testing of any kind in the emergency room especially as the family has a indicated that their primary goal from this point forward is going to be quality of life and comfort. Case management was consulted. The family seems comfortable working on obtaining additional services on their own. Physical therapy was consulted but since the patient was reasonably well ambulatory on his own I ultimately did not feel that a full physical therapy consult was necessary. The physical therapist stopped and briefly and asked the family if they were interested in a home physical therapy but they were not. Family's advised to stay in touch with the primary care doctor for additional advice as needed. Lab Data 01/14/25 12:23 01/14/25 12:23 Labs: Lab Results 01/14/25 Range/Units 12:23 WBC 5.7 (4.8-10.8) X10*3/uL RBC 3.68 L (4.60-5.80) X10*6/uL Hgb 9.5 L D (14.0-18.0) g/dl Hct 30.0 L D (42.0-52.0) % MCV 81.5 (80.0-98.0) fL MCH 25.8 L (27.0-33.0) pg MCHC 31.7 (31.0-36.0) g/dl RDW 16.8 H (11.0-16.0) % Plt Count 338 (160-400) X10*3/uL MPV 7.6 L (9.4-12.4) fL Immature Gran % (Auto) 0.2 (0.0-0.4) % Neut % (Auto) 65.5 (45-73) % Lymph % (Auto) 26.0 (20-40) % [place] % (Auto) 7.5 (2-11) % Eos % (Auto) 0.3 (0-4) % Baso % (Auto) 0.5 (0-2) % Lymph # (Auto) 1.5 (1.2-4.9) X10*3/uL [place] # (Auto) 0.4 (0.1-1.2) X10*3/uL Eos # (Auto) 0.0 (0.0-0.4) X10*3/uL Baso # (Auto) 0.0 (0.0-0.2) X10*3/uL Abs Immat Gran (auto) 0.01 (0.00-0.03) X10*3/uL Absolute Neuts (auto) 3.8 (2.0-8.3) x10*3/uL Absolute Nucleated RBC 0.000 (0.0-0.012) X10*3/uL Nucleated RBC % (auto) 0.0 (0.0-0.2) /100WBC Sodium 138 (135-145) mmol/L Potassium 3.7 (3.3-5.1) mmol/L Chloride 106 (96-108) mmol/L Carbon Dioxide 25 (22-29) mmol/L Anion Gap 11 L (12-20) BUN 15 (9-16) mg/dL Creatinine 0.81 (0.5-1.4) mg/dL Estim Creat Clear Calc 52.6 Estimated GFR > 60 Random Glucose 81 (60-115) mg/dL Calcium 9.1 (8.4-10.2) mg/dL Magnesium 1.9 (1.6-2.6) mg/dL Total Bilirubin 0.4 (0.0-1.0) mg/dL Direct Bilirubin 0.2 (0.0-0.5) mg/dL AST 17 (5-37) U/L ALT < 6 (0-40) U/L Alkaline Phosphatase 94 (39-117) U/L Total Protein 7.3 (6.5-8.0) g/dL Albumin 3.1 L (3.5-5.0) g/dL Influenza Type A (PCR) NEGATIVE (Negative) Influenza Type B (PCR) NEGATIVE (Negative) RSV RNA Qual (PCR) NEGATIVE (Negative) SARS-CoV-2 RNA (RT-PCR) NEGATIVE (Negative) Independent Interpretation I performed an independent interpretation of an: EKG Interpretation: EKG at 12:09 shows sinus rhythm at 60 beats per minute. There is a first-degree AV block. There is a left axis deviation. There is a right bundle branch block. No concerning change from previous. Discharge Plan Discharge Clinical Impression: Fall Patient Disposition: Home, Self-Care Additional Instructions: His basic testing today is unremarkable. Please continue plans to get a Rollator. Please stay in touch with his regular doctor for additional advice as needed. Return to the emergency room if significantly worse. Prescriptions: No Action multivitamin Tablet 1 tab PO DAILY simvastatin 20 mg tablet 20 mg PO BEDTIME aspirin 81 mg Tablet,Chewable 81 mg PO DAILY (DME) T.E.D. Knee Zzqykn-A-Iwxwmij Misc See Rx Instructions .Route Qty: 2 0RF Rx Instructions: As directed levothyroxine 25 mcg tablet 25 mcg PO DAILY mecobalamin (vitamin B12) [B12 Active] 1,000 mcg tablet,chewable 1,000 mcg PO DAILY ferrous sulfate [Feosol] 325 mg (65 mg iron) tablet 325 mg PO DAILY Referrals: Clementine Freeman MD [Primary Care Provider, Medical] Interventions: ED Discharge Assessment Last Done: 01/14/25 14:13 Discharge Date/Time: 01/14/25 14:13 Print Language: [place]
[2025-01-14 11:47] VITALS: BP 136/84; BP 143/78; PULSE 62; PULSE 78; RESP 16; TEMP 36.5; O2SAT 94; O2SAT 95; BMI 20.6
[2025-01-14 11:51] VITALS: BP 143/78; PULSE 62; RESP 16; TEMP 36.5
--- NOTE | 2025-01-14 12:03 | ECG_ITS ---
Test Reason : FALL Blood Pressure : */* mmHG Vent. Rate : 60 BPM Atrial Rate : 60 BPM P-R Int : 212 ms QRS Dur : 130 ms QT Int : 478 ms P-R-T Axes : 86 -42 47 degrees QTcB Int : 478 ms Sinus rhythm with 1st degree A-V block Left axis deviation Right bundle branch block Abnormal ECG When compared with ECG of 14-Nov-2023 13:09, Vent. rate has decreased by 34 bpm Non-specific change in ST segment in Anterior leads Nonspecific T wave abnormality no longer evident in Inferior leads T wave inversion no longer evident in Anterior leads Referred By: Adam Felix Electronically Signed By: MARION CLEMENTS MD
[2025-01-14 12:27] LABS: MANUAL DIFF FLAG NO
[2025-01-14 12:30] LABS: Hematocrit 30.0 % (42.0-52.0); Hemoglobin 9.5 g/dl (14.0-18.0); Imm Gran Abs Auto 0.01 X10*3/uL (0.00-0.03); Imm Gran Pct Auto 0.2 % (0.0-0.4); Lymphocytes Absolute Auto 1.5 X10*3/uL (1.2-4.9); Mean Corpuscular HGB Conc 31.7 g/dl (31.0-36.0); Mean Corpuscular Hemoglobin 25.8 pg (27.0-33.0); Mean Corpuscular Volume 81.5 fL (80.0-98.0); NRBC Abs Auto 0.000 X10*3/uL (0.0-0.012); NRBC Pct Auto 0.0 /100WBC (0.0-0.2); Platelet Count 338 X10*3/uL (160-400); Red Blood Count 3.68 X10*6/uL (4.60-5.80); White Blood Count 5.7 X10*3/uL (4.8-10.8)
[2025-01-14 12:57] LABS: Alanine Aminotransferase < 6 U/L (0-40); Albumin Level 3.1 g/dL (3.5-5.0); Alkaline Phosphatase 94 U/L (39-117); Anion Gap 11 (12-20); Aspartate Amino Transferase 17 U/L (5-37); Blood Urea Nitrogen 15 mg/dL (9-16); Calcium 9.1 mg/dL (8.4-10.2); Carbon Dioxide 25 mmol/L (22-29); Chloride 106 mmol/L (96-108); Creatinine Clr Calc Pharmacy 52.6; Estimated Glomerular Filt Rate > 60; Magnesium 1.9 mg/dL (1.6-2.6); Potassium 3.7 mmol/L (3.3-5.1); Sodium 138 mmol/L (135-145); Total Protein 7.3 g/dL (6.5-8.0)
[2025-01-14 13:14] LABS: Resp Syncy Virus RNA Qual PCR NEGATIVE (Negative); SARS COV2 PCR INHOUSE NEGATIVE (Negative)
--- OUTSIDE RECORDS SUMMARY | 2025-01-14 13:45 | XMS_ITS | Encounter Summary ---
Author Organization [facility] Address [address] [address] Phone Care Team Providers Care Business Consult Name Role Phone Cassie Perez MD Unavailable Hank Guzman MD Primary Care Provider [phone] Hank Guzman MD Unavailable Clementine Freeman MD Primary Care Provider [phone] Cassie Perez MD Unavailable [phone] Hank Guzman MD Unavailable Hank Guzman MD Unavailable Hank Guzman MD Unavailable Encounter Details Date Type Department Care Team (Late st Contact Info) Description 04/24/2023 Transcribe Orders Virtual Department [address] [place] [address] Clementine Freeman MD [address] [place] [phone] [email or web address] Cardiac murmur, unspecified Social History Tobacco Use Types Packs/Day Years Used Date Smoking Tobacco: Never Smokeless Tobacco: Never Alcohol Use Standard Drinks/Week Comments Yes 0 (1 standard drink = 0.6 oz pur e alcohol) occasional Child or Family Care Answer Date Record ed Do you have problems with on e of the following making it difficult for you to work, study, or receive health care? No 10/24/2021 Education Answer Date Recorded Are you interested in help w ith more adult education (for example, completing high school, GED, job training, learning the [place] language, technical skills, or developing parenting skills)? No 10/24/2021 Are you concerned about learning? Not on file 10/24/2021 No 10/24/2021 Yes 10/24/2021 Food Answer Date Recorded Within the past 6 months we worried whether our food would run out before we got money to buy more. Never True 10/24/2021 Within the past 6 months the food we bought just didn't last and we didn't have enough money to get more. Never True Residential Stability Answer Date Recor ded What is your housing situation today? I have anne-marie black 10/24/2021 How many times have you moved in the past 12 fri? One time 10/24/2021 Paying for Meds Answer Date Recorded Do you have trouble paying for medicines? No 10/24/2021 Paying Utility Bills Answer Date Record ed Do you have trouble paying your heating or elect ricity bill? No 10/24/2021 Transportation Answer Date Recorded Has the lack of transportati on kept you from medical appointments or from getting medications? No 10/24/2021 Unemployment Answer Date Recorded Are you currently unemployed or working on a part-time or temporary basis, and looking for work? No 10/24/2021 Digital Access Answer Date Recorded No 11/12/2022 No 11/12/2022 Reliable internet access at home? Not on file 11/12/2022 Device with a working camera? Not on file Intimate Partner Violence Answer Date R ecorded Denied Basic Needs Not on file 02/19/2023 In the past 12 months have y ou been in a relationship with a person who hurts, threatens, or tries to control you? No 02/19/2023 Worried food would run out Not on file 02/19 In the past 12 months have y ou been in a relationship with a person who hurts, threatens, or tries to control you? No 02/19/2023 Sex and Gender Information Value Date Recorded Sex Assigned at Male 04/17/2020 8:22 PM EST Legal Sex Male 4:54 PM EDT Gender Identity Male 04/17/2020 8:22 PM EST Sexual Orientation Lesbian or Fall 04/17/2020 8: 22 PM EST documented as of this encounter Plan of Treatment Not on file documented as of this encounter Visit Diagnoses Diagnosis Cardiac murmur, unspecified documented in this encounter Additional Health Concerns Assessment Noted Time PHQ-9 Depression Total Score: 0 03/16/20 12:53 PM EDT PHQ-2 Depression Total Score: 0 03/16/20 12:53 PM EDT documented as of this encounter Care Teams Business Consult Relationship Specialty Start Date End Date Hank Guzman MD [address] [place] [address] PCP - General Internal Medicine 05/20/22 04/30/23 Clementine Freeman MD [address] [place] [phone] [email or web address] PCP - General Internal Medicine 05/01/23 Cassie Perez MD Consulting Provider Geriatric Medicine 11/09/21 Hank Guzman MD [address] [place] [phone] Insurance Assigned Provider 09/20/23 09/19/24 Cassie Perez MD Geriatric Medicine 04/19/24 Hank Guzman MD [address] [place] [phone] Insurance Assigned Provider 09/20/23 10/23/24 Hank Guzman MD [address] [place] [phone] [email or web address] Insurance Assigned Provider 09/20/23 11/20/24 Hank Guzman MD [address] [place] [address] Insurance Assigned Provider 09/20/23 12/25/24 documented as of this encounter Additional Source Comments The information contained in this document represents components of the legal health record. It is not the complete legal health record.[facility]
[2025-01-14 14:13] VITALS: BP 143/78; PULSE 62; RESP 16; TEMP 36.5
--- NOTE | 2025-01-14 15:55 | MHC.CM.PN ---
CM MET WITH PTS AND SISTER IN LAW AT BEDSIDE THEY REPORT THEY ALL LIVE AT [facility], BUT PT IS ON A WAIT LIST TO MOVE TO THE [facility] THEY REPORT IN THE MEANTIME, THEY WILL WORK ON ARRANGING PRIVATE PAY HOME CARE THEY ARE CONCERNED ABOUT HOW RAPID THE PT SEEMS TO BE DECLINING, AND REPORT THEY WILL FOLLOW UP WITH PTS NEUROLOGIST THEY ALSO REPORT THEY NEED TO WORK WITH [place] TO ENSURE THEY WILL APPROVE THE HOME CARE THEY HIRE PTS , JOSE, HAS BEEN CALLING [employer]AIR
== END 2025-01-14 14:13 | disposition home or self-care (01) ==
PROVIDERS: Emergency Provider Emergency Medicine; PCP Internal Medicine
DX: Z03.818 Encounter for observation for suspected exposure to other biological agents ruled out (principal); F03.90 Unspecified dementia, unspecified severity, without behavioral disturbance, psychotic disturbance, mood disturbance, and anxiety; W18.30XA Fall on same level, unspecified, initial encounter; Y93.9 Activity, unspecified; Y92.9 Unspecified place or not applicable; Y99.9 Unspecified external cause status
CPT/HCPCS: 36415; 80048; 80076; 83735; 85025; 87637; 93005; 99283; 99284

== ENCOUNTER → 2025-01-14 12:03 | Outpatient (BNV) | payer MEDICARE, SELFPAY | PROVIDERS: Emergency Provider Emergency Medicine; PCP Internal Medicine; Visit Provider Internal Medicine Cardiovascular Disease | DX: I44.0 Atrioventricular block, first degree (principal); I45.10 Unspecified right bundle-branch block | CPT/HCPCS: 93010 ==

== ENCOUNTER → 2025-02-23 13:04 | Outpatient (REF) | payer MEDICARE, SELFPAY ==
--- NOTE | 2025-02-23 13:12 | CA_ITS ---
Transthoracic Echocardiogram Patient (Last, First, Middle): Karsten Mendez, Gender: Male Date of : 1935 Age: 89 Procedure Date: 02/23/2025 Procedure Type: Transthoracic Echocardiogram Location: OP Height: 172.72 cm Weight: 66. 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 Normal LV ejection fraction 55-60% with impaired relaxation filling pattern 2. Calcific mild aortic stenosis and mild regurgitation 3. 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 Normal RV systolic pressure 5. No gross pericardial effusion Findings Left Ventricle Normal left ventricular size, thickness, and systolic function. The visually estimated ejection fraction is between 55-60%. Spectral Doppler is indicative of an impaired relaxation filling pattern. E/E prime ratio is <8, consistent with normal filling pressures. Evidence suggests grade I (mild) diastolic dysfunction. Right Ventricle Normal right ventricular cavity size and systolic function. Atria Both atria are normal in size. There is lipomatous hypertrophy of the interatrial septum. There is no evidence of interatrial shunt. Aortic Valve There is mild calcification of the aortic valve. There is mild thickening of the aortic valve. There is mild aortic valve stenosis. The peak aortic velocity is 1.98 m/s with a calculated peak gradient of 16 mmHg. The mean gradient is 8 mmHg. The aortic valve area is 1.97 cm2. There is mild aortic valve regurgitation. Mitral Valve Normal mitral valve structure and function. There is trace mitral valve regurgitation. There is no mitral valve stenosis. Pulmonic Valve The pulmonic valve is likely normal. Tricuspid Valve Normal tricuspid valve structure. There is trace tricuspid valve regurgitation. The right ventricular systolic pressure is normal. The right ventricular systolic pressure is 24 mmHg. Normal right atrial pressure. There is no evidence of pulmonary hypertension. Great Vessels The pulmonary artery was not well visualized. There is mild dilatation of the ascending aorta measuring 4.20 cm. Small plaque is seen in the sino tubular ridge. Venous The inferior vena cava is normal in size and collapses greater than 50% with inspiration. Pericardium/Pleural There is no evidence of pericardial effusion. Prior Study Comparison No significant change compared to prior study dated: 01/20/2024. Measurements 2D Linear Measurements IVSd: 1.24 0.6-0.9/0.6-1.0 cm LVIDd: 3.26 3.9-5.3/4.2-5.9 cm LVIDd Index: 1.82 2.4-3.2/2.2-3.1 cm/m2 LVIDs: 2.23 2.0-3.6 cm LVPWd: 0.88 0.7-1.1 cm Ao Root: 3.50 2.1-3.5 cm LA Diam: 3.00 2.7-3.8/3.0-4.0 cm LAIDs Index: 1.68 1.5-2.3 cm/m2 LV Mass: 125.83 67-162/88-224 g LV Mass Index: 70.29 43-95/49-115 g/m2 LVOT Diam: 2.20 3.0+(-)1.3 cm 2D Systolic Function EF 4C: 58.20 >55% EF 2C: 55.20 >55% EF BiP: 56.50 >55% Mitral Valve MV Pk E: 0.58 MV PK A: 0.89 MV Decel Time: 254.00 E/A: 0.70 E'Lateral: 6.74 E'Medial: 6.85 E/E' Med: 8.50 E/E' Lat: 8.60 PHT: 74.00 MVA PHT: 2.97 Decel Pecos: 2.29 Aortic Valve AoV Pk Dion: 1.98 AoV Mn Dion: 1.28 AoV VTI: 0.41 AoV Pk Grad: 16.00 Aov Mn Grad: 8.00 PRACHI Cont.VTI: 1.97 LVOT LVOT Pk Dion: 1.00 LVOT Mn Dion: 0.69 LVOT VTI: 0.21 LVOT Pk Grad: 4.00 LVOT Mn Grad: 2.00 LVOT Diam: 2.20 LVOT Area: 3.80 Diastolic Function MV Pk E: 0.58 MV Pk A: 0.89 E/A: 0.70 E'Medial: 6.85 E/E' Med: 8.50 E' Laterial: 6.74 E/E' Lat: 8.60 Right Ventricle TAPSE (mm): 17.70 TVS' Dion: 9.36 Tricuspid Valve TR Pk Dion: 2.29 TR Pk Grad: 21.00 RA Press: 3.00 RVSP: 24.00 Great Vessels Aorta Ao Root-2D: 3.50 2.0-3.7 cm Ao Asc: 4.20 2.1-3.4 cm Ao Arch: 3.90 Updated in Other Vendor System with Status of Final Preet Willis MD electronically signed on 02/24/2025 11:30:29 AM with status of Final
--- OUTSIDE RECORDS SUMMARY | 2025-02-23 16:04 | XMS_ITS | Encounter Summary ---
Author Organization [facility] Address [address] [address] Phone Care Team Providers Care Clinic Specialist Name Role Phone Cassie Perez MD Unavailable [phone] Clementine Freeman MD Primary Care Provider [phone] Cassie Perez MD Unavailable [phone] Hank Guzman MD Unavailable SoHank lomax MD Unavailable SoHank lomax MD Unavailable SoHank lomax MD Unavailable Hank Guzman MD Unavailable Reason for Referral * MRI/CAT Scan - Closed Specialty Diagnoses / Procedures Referred By Contac t Referred To Contact Radiology Diagnoses LLQ abdominal mass Weight loss Procedures CT Abdomen/Pelvis Apoorva Aquino PA [address] [place] [address] Phone: tel: fax: [email or web address] Referral ID Status Reason Start Date Expiration Date Visits Re quested Visits Authorized [id number] Closed 10/15/2024 10/15/2025 1 1 * MRI/CAT Scan - Closed Specialty Diagnoses / Procedures Referred By Contac t Referred To Contact Radiology Diagnoses LLQ abdominal mass Weight loss Procedures CT Chest Apoorva Aquino PA [address] [place] [address] Phone: tel: fax: [email or web address] Referral ID Status Reason Start Date Expiration Date Visits Re quested Visits Authorized [id number] Closed 10/15/2024 10/15/2025 1 1 Encounter Details Date Type Department Care Team (Latest Contact Info) Description 10/15/2024 Transcribe Orders Virtual Department [address] [place] [address] Apoorva qAuino PA [address] [place] [phone] [email or web address] LLQ abdominal mass (Primary Dx); Weight loss Social History Tobacco Use Types Packs/Day Years [...] Answer Date Recorded Are you interested in more education? Not on melany e 10/29/2023 Are you concerned about learning? Not on file 10/29/2023 No 10/29/2023 No 10/29/2023 Food Answer Date Recorded Within the past [...] have you moved in the past 12 mon ths? One time 10/24/2021 Paying for Meds Answer [...] on file documented as of this encounter Results * CT ABDOMEN/PELVIS WITH CONTRAST (10/24/2024 1:10 PM EDT) B IMG PRESSURE WELDER COMMENT Large left lower quadrant mass is new from November 2020. [employer] Anatomical Region Laterality Modality Abdomen, Pelvis Computed Tomogra phy 10/28/2024 8:44 PM EDT Impressions 10/29/2024 6:31 AM EDT 1. Same-day chest CT is reported separately. Right middle lobe atelectasis with unclear etiology. 2. Large left lower quadrant mass is new from November 2020. It abuts the sigmoid colon and multiple small bowel loops, but it does not clearly arise from the bowel. Differential is quite broad, including desmoid tumor, gastrointestinal stromal tumor, nerve sheath tumor, and sarcoma. 3. No bowel obstruction. 4. Status post prostatectomy. 5. No lymphadenopathy. A clinically significant result was initiated on 10/28/2024 9:00 PM, Message ID [id number]. Narrative 10/29/2024 6:[address] ABDOMEN/PELVIS WITH CONTRAST INDICATION: Left lower quadrant abdominal mass. TECHNIQUE: Multidetector-row CT of the abdomen and pelvis was performed after administration of intravenous contrast using tailored dose modulation techniques. Images were reconstructed in the axial, coronal, and sagittal planes. COMPARISON: CT from November 2020. FINDINGS: Lower Chest: Same-day dedicated chest CT is reported separately. There is partially imaged atelectasis of the right middle lobe. There are coronary artery calcifications. There are aortic valve calcifications. Liver: No focal lesion. Biliary: Normal. Spleen: Normal. Pancreas: Normal. Adrenal Glands: Normal. Kidneys/Ureters: No suspicious lesion. Bilateral renal cysts. No hydronephrosis or hydroureter. Bowel: No obstruction. There is diverticulosis of the sigmoid colon. A large left lower quadrant mass abuts the proximal sigmoid colon and multiple small bowel loops, but it does not definitively arise from the bowel. Peritoneum/Retroperitoneum: No free air. No free fluid. Large macrolobulated mass in the left lower quadrant distorts the psoas muscle posteriorly and distorts the abdominis rectus and oblique musculature anteriorly. It measures 10 cm transverse by 8 cm AP by 9 cm craniocaudal. Most of this lesion has density similar to skeletal muscle, but there are multiple small hypodense fluid attenuation components. No identifiable fat within the lesion. There is no significant infiltration of the adjacent fat. Lymph Nodes: Normal. Pelvic Organs/Bladder: Nondilated urinary bladder. Status post prostatectomy. Vessels: There are scattered atherosclerotic plaques. Visualized portion of the ascending aorta is ectatic. Lower descending thoracic aorta is ectatic. No aneurysm of the abdominal aorta. Celiac artery is ectatic. Common iliac arteries are ectatic. Bones/Soft Tissues: Status post left inguinal herniorrhaphy with hyperdense bandage. Others distortion of the lower left anterior abdominal wall related to the left lower quadrant mass. No suspicious focal bone lesion. Procedure Note Dre Fleming MD - 10/29/2024 CT ABDOMEN/PELVIS WITH CONTRAST INDICATION: Left lower quadrant abdominal mass. TECHNIQUE: Multidetector-row CT of the abdomen and pelvis was performedafter administration of intravenous contrast using tailored dosemodulation techniques. Images were reconstructed in the axial, coronal,and sagittal planes. COMPARISON: CT from November 2020. FINDINGS: Lower Chest: Same-day dedicated chest CT is reported separately. There ispartially imaged atelectasis of the right middle lobe. There are coronaryartery calcifications. There are aortic valve calcifications. Liver: No focal lesion. Biliary: Normal. Spleen: Normal. Pancreas: Normal. Adrenal Glands: Normal. Kidneys/Ureters: No suspicious lesion. Bilateral renal cysts. Nohydronephrosis or hydroureter. Bowel: No obstruction. There is diverticulosis of the sigmoid colon. Alarge left lower quadrant mass abuts the proximal sigmoid colon andmultiple small bowel loops, but it does not definitively arise from thebowel. Peritoneum/Retroperitoneum: No free air. No free fluid. Large macrolobulated mass in the left lower quadrant distorts the psoasmuscle posteriorly and distorts the abdominis rectus and obliquemusculature anteriorly. It measures 10 cm transverse by 8 cm AP by 9 cmcraniocaudal. Most of this lesion has density similar to skeletal muscle,but there are multiple small hypodense fluid attenuation components. Noidentifiable fat within the lesion. There is no significant infiltrationof the adjacent fat. Lymph Nodes: Normal. Pelvic Organs/Bladder: Nondilated urinary bladder. Status postprostatectomy. Vessels: There are scattered atherosclerotic plaques. Visualized portionof the ascending aorta is ectatic. Lower descending thoracic aorta isectatic. No aneurysm of the abdominal aorta. Celiac artery is ectatic.Common iliac arteries are ectatic. Bones/Soft Tissues: Status post left inguinal herniorrhaphy withhyperdense bandage. Others distortion of the lower left anterior abdominalwall related to the left lower quadrant mass. No suspicious focal bonelesion. IMPRESSION: 1. Same-day chest CT is reported separately. Right middle lobeatelectasis with unclear etiology. 2. Large left lower quadrant mass is new from November 2020. It abuts thesigmoid colon and multiple small bowel loops, but it does not clearlyarise from the bowel. Differential is quite broad, including desmoidtumor, gastrointestinal stromal tumor, nerve sheath tumor, and sarcoma. 3. No bowel obstruction. 4. Status post prostatectomy. 5. No lymphadenopathy. A clinically significant result was initiated on 10/28/2024 9:00 PM,Message ID [id number]. Apoorvajeremías Aquino [place] IMG CT ABD/PELVIS Final Result * CT CHEST WITH CONTRAST (10/24/2024 1:10 PM EDT) MGB IMG PRESSURE WELDER COMMENT Complete obstruction of the right middle lobe bronchus, airway secretions versus an endobronchial lesion. Short interval follow-up chest CT. Consider bronchoscopy if clinically warranted. [facility] Anatomical Region Laterality Modality Chest Computed Tomogra phy 10/28/2024 2:19 PM EDT Impressions 10/28/2024 2:37 PM EDT * Obstructed right middle lobe bronchus resulting in complete collapse of the right middle lobe. While this may be due to airway secretions, an endobronchial lesion cannot be excluded. * Pleural/subpleural nodules on the right, indeterminate. * Tree in bud nodules in the left upper lobe, likely infectious or inflammatory bronchiolitis or aspiration. * No thoracic lymphadenopathy. * Findings suggestive of prior granulomatous disease. RECOMMENDATIONS: Follow-up chest CT in 6-8 weeks. Bronchoscopy can be considered if clinically warranted. A clinically significant result was initiated on 10/28/2024 2:37 PM, Message ID [id number]. Narrative 10/28/2024 2:[address] CHEST WITH CONTRAST Referring clinician's provided indication for this examination in Epic: Outside Radiology Order; llq mass TECHNIQUE: Multidetector CT of the chest was performed with intravenous contrast using tailored dose modulation techniques. COMPARISON: XR CHEST PA AND LATERAL 2 VIEWS 2024- FINDINGS: Devices/Tubes/Lines: None. Lungs: Respiratory motion limits evaluation of the lung parenchyma. Layering secretions in the upper trachea and distal right mainstem bronchus. Occlusion of the right middle lobe bronchus (5:198) with complete collapse of the right middle lobe. Linear atelectasis/scarring in the posterior right upper lobe with calcifications, which may be granulomas versus postsurgical change. Subsegmental atelectasis/scarring in the left upper and left lower lobes. Focal bronchial wall thickening in the right upper lobe (5:19). Tree-in-bud nodules in the left upper lobe (5:155). Pleura: No pleural effusion or pneumothorax. Pleural/subpleural nodules along the posterior right upper lung measuring 9 x 3 mm (5:110) and 21 x 7 mm (5:135). Mediastinum: Bilateral subcentimeter thyroid nodules. Dilated main pulmonary artery measuring 3.2 cm, which may be seen in pulmonary hypertension. Normal heart size. No pericardial effusion. Severe amount of coronary calcifications. Aortic valvular calcification. Dilated ascending thoracic aorta measuring 4.3 cm. Lymph Nodes: No enlarged supraclavicular, axillary, mediastinal, or hilar lymph nodes. Partially calcified mediastinal and hilar lymph nodes, suggestive of prior granulomatous disease Upper Abdomen: Reported separately. Chest Wall: No chest wall mass. Bones: Skeletal degenerative changes. No suspicious lytic or blastic lesions. Procedure Note Teresa Stoner MD, PhD - 10/28/2024 CT CHEST WITH CONTRAST Referring clinician's provided indication for this examination in Epic:Outside Radiology Order; llq mass TECHNIQUE: Multidetector CT of the chest was performed with intravenouscontrast using tailored dose modulation techniques. COMPARISON: XR CHEST PA AND LATERAL 2 VIEWS 2024- FINDINGS: Devices/Tubes/Lines: None. Lungs: Respiratory motion limits evaluation of the lung parenchyma.Layering secretions in the upper trachea and distal right mainstembronchus. Occlusion of the right middle lobe bronchus (5:198) withcomplete collapse of the right middle lobe. Linear atelectasis/scarring inthe posterior right upper lobe with calcifications, which may begranulomas versus postsurgical change. Subsegmental atelectasis/scarringin the left upper and left lower lobes. Focal bronchial wall thickening inthe right upper lobe (5:19). Tree-in-bud nodules in the left upper lobe(5:155). Pleura: No pleural effusion or pneumothorax. Pleural/subpleural nodulesalong the posterior right upper lung measuring 9 x 3 mm (5:110) and 21 x 7mm (5:135). Mediastinum: Bilateral subcentimeter thyroid nodules. Dilated mainpulmonary artery measuring 3.2 cm, which may be seen in pulmonaryhypertension. Normal heart size. No pericardial effusion. Severe amount ofcoronary calcifications. Aortic valvular calcification. Dilated ascendingthoracic aorta measuring 4.3 cm. Lymph Nodes: No enlarged supraclavicular, axillary, mediastinal, or hilarlymph nodes. Partially calcified mediastinal and hilar lymph nodes,suggestive of prior granulomatous disease Upper Abdomen: Reported separately. Chest Wall: No chest wall mass. Bones: Skeletal degenerative changes. No suspicious lytic or blasticlesions. IMPRESSION: * Obstructed right middle lobe bronchus resulting in complete collapse ofthe right middle lobe. While this may be due to airway secretions, anendobronchial lesion cannot be excluded. * Pleural/subpleural nodules on the right, indeterminate. * Tree in bud nodules in the left upper lobe, likely infectious orinflammatory bronchiolitis or aspiration. * No thoracic lymphadenopathy. * Findings suggestive of prior granulomatous disease. RECOMMENDATIONS: Follow-up chest CT in 6-8 weeks. Bronchoscopy can be considered ifclinically warranted. A clinically significant result was initiated on 10/28/2024 2:37 PM,Message ID [id number]. Apoorva [facility] [place] CHEST Final Result documented in this encounter Visit Diagnoses Diagnosis LLQ abdominal mass- Primary Abdominal or pelvic swelling, mass, or lump, left lower quadrant Weight loss Loss of weight LLQ abdominal mass Abdominal or pelvic swelling, mass, or lump, left lower quadrant Weight loss Loss of weight documented in this encounter Additional Health Concerns Assessment Noted Time PHQ-9 Depression Total Score: 2 08/19/19 24 9:08 PM EST PHQ-2 Depression Total Score: 0 08/19/19 24 9:08 PM EST documented as of this encounter Care Teams Clinic Specialist Relationship Specialty Start Date End Date Clementine Freeman MD [address] [place] [phone] [email or web address] PCP - General Internal Medicine 05/01/23 Cassie Perez MD Consulting Provider Geriatric Medicine 11/09/21 Cassie Perez MD Geriatric Medicine 04/19/24 Hank Guzman MD [address] [place] [phone] Insurance Assigned Provider 09/20/23 10/23/24 Hank Guzman MD [address] [place] [phone] Insurance Assigned Provider 09/20/23 11/20/24 Hank Guzman MD [address] [place] [phone] Insurance Assigned Provider 09/20/23 12/25/24 Hank Guzman MD [address] [place] [phone] Insurance Assigned Provider 09/20/23 01/22/25 Hank Guzman MD [address] [place] [phone] Insurance Assigned Provider 09/20/23 02/19/25 documented as of this encounter Additional Source Comments The information contained in this document represents components of the legal health record. It is not the complete legal health record.[facility]
--- OUTSIDE RECORDS SUMMARY | 2025-02-23 16:04 | XMS_ITS | Encounter Summary ---
Author Organization [facility] Address [address] [address] Phone Care Team Providers Care Pattern Storage Clerk Name Role Phone Cassie Perez MD Unavailable [phone] Hank Guzman MD Primary Care Provider Hank Guzman MD Unavailable Clementine Freeman MD Primary Care Provider [phone] Cassie Perez MD Unavailable [phone] Hank Guzman MD Unavailable Hank Guzman MD Unavailable Hank Guzman MD Unavailable Hank Guzman MD Unavailable Hank Guzman MD Unavailable Encounter Details Date Type Department Care Team (Late st Contact Info) Description 02/25/2023 Procedure Pass [facility], [address] [address] Social History Tobacco Use Types Packs/Day Years [...] high school, GED, job training, learning the [place] language, technical skills, or developing parenting skills)? [...] documented as of this encounter Visit Diagnoses Not on filedocumented in this encounter Additional Health Concerns Assessment Noted Time PHQ-9 Depression Total Score: 0 03/16/20 12:53 PM EDT PHQ-2 Depression Total Score: 0 03/16/20 12:53 PM EDT documented as of this encounter Care Teams Pattern Storage Clerk Relationship Specialty Start Date End Date Hank Guzman MD [address] [place] [address] PCP - General Internal Medicine 05/20/22 04/30/23 Clementine Freeman MD [address] [place] [id number] [email or web address] PCP - General Internal Medicine 05/01/23 Cassie Perez MD Consulting Provider Geriatric Medicine 11/09/21 Hank Guzman MD [address] [place] [phone] Insurance Assigned Provider 09/20/23 09/19/24 Cassie Perez MD Geriatric Medicine 04/19/24 Hank Guzman MD [address] [place] [address] Insurance Assigned Provider 09/20/23 10/23/24 Hank Guzman MD [address] [place] [address] Insurance Assigned Provider 09/20/23 11/20/24 Hank Guzman MD [address] [place] [address] [email or web address] Insurance Assigned Provider 09/20/23 12/25/24 Hank Guzman MD [address] [place] [address] Insurance Assigned Provider 09/20/23 01/22/25 Hank Guzman MD [address] [place] [phone] Insurance Assigned Provider 09/20/23 02/19/25 documented as of this encounter Additional Source Comments The information contained in this document represents components of the legal health record. It is not the complete legal health record.[facility]
--- OUTSIDE RECORDS SUMMARY | 2025-02-23 16:04 | XMS_ITS | Encounter Summary ---
Author Organization [facility] Address [address] [facility] [address] [place] [address] Phone Care Team Providers Care Bank Guard Name Role Phone Jannette Ramirez MD Primary Care Provider [phone] Kiki Norman MD Primary Care Provid er Cassie Perez MD Unavailable [phone] Unknown, Unknown Primary Care Provider Hank Anne MD Primary Care Provider [phone] Hank Guzman MD Unavailable Clementine Freeman MD Primary Care Provider [phone] Cassie Perez MD Unavailable [phone] Hank Guzman MD Unavailable Hank Guzman MD Unavailable Hank Guzman MD Unavailable Hank Guzman MD Unavailable Hank Guzman MD Unavailable Encounter Details Date Type Department Care Team (Late st Contact Info) Description 07/14/2020 Procedure Pass [place] Admitting Dept - Virtual Department [address] [place] [phone] Social History Tobacco Use Types Packs/Day Years Used Date Smoking Tobacco: Never Smokeless Tobacco: Never Alcohol Use Standard Drinks/Week Comments Yes 0 (1 standard drink = 0.6 oz pur e alcohol) occasional Sex and Gender Information Value Date Recorded [...] filedocumented in this encounter Additional Health Concerns Infection Onset Date Last Indicated Resolved Time CoV-Risk 05/20/2022 05/20/2022 05/31/2022 1:23 AM EST documented as of this encounter Care Teams Bank Guard Relationship Specialty Start Date End Date Jannette Ramirez MD [email or web address] PCP - General Internal Medicine 05/05/20 10/23/21 Kiki Norman MD [address] [place] [address] [email or web address] PCP - General Family Medicine 10/24/21 04/18/22 Unknown, Unknown, MD PCP - General 04/22/22 05/19/22 Hank Guzman MD [address] [place] [address] [email or web address] PCP - General Internal Medicine 05/20/22 04/30/23 Clementine Freeman MD [address] [place] [address] [email or web address] PCP - General Internal Medicine 05/01/23 Cassie Perez MD [address] [place] [address] [email or web address] Consulting Provider Geriatric Medicine 11/09/21 Hank Guzman MD [address] [place] [address] [place] [address] Insurance Assigned Provider 09/20/23 09/19/24 Cassie Perez MD [address] [place] [address] [email or web address] 04/19/24 Hank Guzman MD [address] [place] [address] Insurance Assigned Provider 09/20/23 10/23/24 Hank Guzman MD [address] [place] [address] Insurance Assigned Provider 09/20/23 11/20/24 Hank Guzman MD 40 [place] [address] Insurance Assigned Provider 09/20/23 12/25/24 Hank Guzman MD [address] [place] [address] Insurance Assigned Provider 09/20/23 01/22/25 Hank Guzman MD [address] [place] [address] Insurance Assigned Provider 09/20/23 02/19/25 documented as of this encounter Additional Source Comments The information contained in this document represents components of the legal health record. It is not the complete legal health record.[facility]
--- OUTSIDE RECORDS SUMMARY | 2025-02-23 16:04 | XMS_ITS | Encounter Summary ---
Author Organization [facility] Address [address] [place] [address] Phone Care Team Providers Care Sales Representative Publications Name Role Phone Cassie Perez MD Unavailable [phone] Clementine Freeman MD Primary Care Provider Cassie Perez MD Unavailable [phone] Hank Guzman MD Unavailable Hank Guzman MD Unavailable Hank Guzman MD Unavailable Hank Guzman MD Unavailable SoHank lomax MD Unavailable Encounter Details Date Type Department Care Team (Late st Contact Info) Description 10/14/2024 Ancillary Orders [facility], X-Ray - [place] [address] [place] [address] Apoorva Aquino PA [address] [place] [address] [email or web address] Pain (Primary Dx) Social History Tobacco Use Types Packs/Day Years [...] have you moved in the past 12 fri ths? One time 10/24/2021 Paying for Meds [...] as of this encounter Visit Diagnoses Diagnosis Pain- Primary Generalized pain documented in this encounter Additional Health Concerns Assessment Noted Time PHQ-9 Depression Total Score: 2 08/19/19 9:08 PM EST PHQ-2 Depression Total Score: 0 08/19/19 9:08 PM EST documented as of this encounter Care Teams Sales Representative Publications Relationship Specialty Start Date End Date Clementine Freeman MD [address] [place] [address] [email or web address] PCP - General Internal Medicine 05/01/23 Cassie Perez MD [email or web address] Consulting Provider Geriatric Medicine 11/09/21 Cassie Perez MD [email or web address] [email or web address] Medicine 04/19/24 Hank Guzman MD [address] [place] [phone] Insurance Assigned Provider 09/20/23 10/23/24 Hank Guzman MD [address] [place] [phone] Insurance Assigned Provider 09/20/23 11/20/24 Hank Guzman MD [address] [place] [phone] Insurance Assigned Provider 09/20/23 12/25/24 Hank Guzman MD [address] [place] [address] [email or web address] Insurance Assigned Provider 09/20/23 01/22/25 Hank Guzman MD [address] [place] [address] [email or web address] Insurance Assigned Provider 09/20/23 02/19/25 documented as of this encounter Additional Source Comments The information contained in this document represents components of the legal health record. It is not the complete legal health record.[facility]
--- OUTSIDE RECORDS SUMMARY | 2025-02-23 16:04 | XMS_ITS | Encounter Summary ---
Author Organization [facility] Address [address] [address] Phone Care Team Providers Care Digital Watch Assembler Name Role Phone Jannette Ramirez MD Primary Care Provider [phone] Kiki Norman MD Primary Care Provid er Cassie Perez MD Unavailable [phone] Unknown, Unknown Primary Care Provider Hank Anne MD Primary Care Provider [phone] SoHank lomax MD Unavailable Clementine Freeman MD Primary Care Provider [phone] Cassie Perez MD Unavailable [phone] Hank Guzman MD Unavailable Hank Guzman MD Unavailable Hank Guzman MD Unavailable Hank Guzman MD Unavailable Hank Guzman MD Unavailable Reason for Referral * MRI/CAT Scan - Closed Specialty Diagnoses / Procedures Referred By Jess benedict Referred To Contact Radiology Diagnoses Hydronephrosis, left Urinary frequency Procedures CT Abdomen/Pelvis Anthony Gaytan MD Phone: tel: fax: [email or web address] Referral ID Status Reason Start Date Expiration Date Visits Re quested Visits Authorized [id number] Closed 11/20/2020 11/20/2021 1 1 Encounter Details Date Type Department Care Team (Late st Contact Info) Description 11/20/2020 Ancillary Orders Virtual Department [address] [place] [address] Anthony Gaytan MD [address] [facility] [address] [place] [address] [email or web address] Hydronephrosis, left; Urinary frequency Social History Tobacco Use Types Packs/Day Years [...] of this encounter Results * CT ABDOMEN/PELVIS WITHOUT CONTRAST (11/20/2020 3:44 PM EDT) Anatomical Region Laterality Modality Abdomen, Pelvis Computed Tomogra phy 11/20/2020 5:26 PM EDT Impressions 11/20/2020 5:40 PM EDT 0.4 cm stone identified immediately distal to the left ureterovesical junction. Minimal residual left hydroureteronephrosis. No additional renal or ureteral stones identified on either side. Narrative 11/20/2020 5:40 PM EDT EXAM: CT ABDOMEN/PELVIS WITHOUT CONTRAST COMPARISON: Abdomen/pelvis CT on April 17, 2020 HISTORY: Hydronephrosis, Urinary frequency, left r/o stones TECHNIQUE: CT scan of the abdomen and pelvis was performed without intravenous contrast. Coronal and sagittal reformatted images were generated. Automated exposure control utilized. FINDINGS: Absence of intravenous contrast decreases sensitivity for detection of focal lesions and vascular pathology. FINDINGS: LOWER THORAX: No lung consolidation. No pleural effusion. HEPATOBILIARY: Unremarkable liver parenchyma. Gallbladder is not distended. No calcified gallstones. SPLEEN: No splenomegaly. PANCREAS: Unremarkable. ADRENAL GLANDS: No mass. KIDNEYS AND URETERS: Right: No hydronephrosis or renal stones. Stable small hyperdense lesion in the lower pole of the right kidney which likely represents a proteinaceous cyst (5:40) Left: Minimal left perinephric stranding. Minimal periureteral stranding. A 0.4 cm stone identified at the level of the ureterovesical junction (2:65) results in minimal dilatation of the proximal collecting system. No additional renal stones or ureteral stones identified. STOMACH/GI TRACT: No oral contrast was administered. Stomach is decompressed relatively decompressed. No bowel dilatation. Multiple diverticula along the descending and sigmoid colons. 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 Urinary bladder is only partially distended. 0.4 cm stone identified immediately distal to the left ureterovesical junction. PERITONEUM AND RETROPERITONEUM: No free fluid, fluid collection or free air. LYMPH NODES: No adenopathy. VESSELS: Scattered atherosclerotic calcifications, including of the bilateral renal arteries. No abnormal aortic aneurysm. BONES AND SOFT TISSUES: Repair mesh in the left inguinal region. Small fat-containing right inguinal hernia. No acute or suspicious osseous abnormalities. Procedure Note Aidan Khalil MD - 11/20/2020 EXAM: CT ABDOMEN/PELVIS WITHOUT CONTRAST COMPARISON: Abdomen/pelvis CT on April 17, 2020 HISTORY: Hydronephrosis, Urinary frequency, left r/o stones TECHNIQUE: CT scan of the abdomen and pelvis was performed withoutintravenous contrast. Coronal and sagittal reformatted images weregenerated. Automated exposure control utilized. FINDINGS: Absence of intravenous contrast decreases sensitivity for detection offocal lesions and vascular pathology. FINDINGS: LOWER THORAX: No lung consolidation. No pleural effusion. HEPATOBILIARY: Unremarkable liver parenchyma. Gallbladder is notdistended. No calcified gallstones. SPLEEN: No splenomegaly. PANCREAS: Unremarkable. ADRENAL GLANDS: No mass. KIDNEYS AND URETERS: Right: No hydronephrosis or renal stones. Stable small hyperdense lesionin the lower pole of the right kidney which likely represents aproteinaceous cyst (5:40) Left: Minimal left perinephric stranding. Minimal periureteral stranding.A 0.4 cm stone identified at the level of the ureterovesical junction(2:65) results in minimal dilatation of the proximal collecting system. Noadditional renal stones or ureteral stones identified. STOMACH/GI TRACT: No oral contrast was administered. Stomach isdecompressed relatively decompressed. No bowel dilatation. Multiplediverticula along the descending and sigmoid colons. 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 0.4 cm stone identifiedimmediately distal to the left ureterovesical junction. PERITONEUM AND RETROPERITONEUM: No free fluid, fluid collection or freeair. LYMPH NODES: No adenopathy. VESSELS: Scattered atherosclerotic calcifications, including of thebilateral renal arteries. No abnormal aortic aneurysm. BONES AND SOFT TISSUES: Repair mesh in the left inguinal region. Smallfat- containing right inguinal hernia. No acute or suspicious osseousabnormalities. IMPRESSION: 0.4 cm stone identified immediately distal to the left ureterovesicaljunction. Minimal residual left hydroureteronephrosis. No additional renal or ureteral stones identified on either side. Anthony Gaytan MD IMG CT ABD/PELVIS Final Result documented in this encounter Visit Diagnoses Diagnosis Hydronephrosis, left Hydronephrosis Urinary frequency Hydronephrosis, left Hydronephrosis Urinary frequency documented in this encounter Additional Health Concerns Infection Onset Date Last Indicated Resolved Time CoV-Risk 05/20/2022 05/20/2022 05/31/2022 1:23 AM EST documented as of this encounter Care Teams Digital Watch Assembler Relationship Specialty Start Date End Date Jannette Ramirez MD [email or web address] PCP - General Internal Medicine 05/05/20 10/23/21 Kiki Norman MD [address] [place] [address] [email or web address] PCP - General Family Medicine 10/24/21 04/18/22 Unknown, Traci, PCP - General 04/22/22 05/19/22 Hank Guzman MD [address] [place] [address] [email or web address] PCP - General Internal Medicine 05/20/22 04/30/23 Clementine Freeman MD [address] [place] [id number] [email or web address] PCP - General Internal Medicine 05/01/23 Cassie Perez MD [address] [place] [phone] [email or web address] Consulting Provider Geriatric Medicine 11/09/21 Hank Guzman MD [address] [place] [address] Insurance Assigned Provider 09/20/23 09/19/24 Cassie Perez MD [address] [place] [phone] Geriatric Medicine 04/19/24 Hank Guzman MD [address] [place] [phone] Insurance Assigned Provider 09/20/23 10/23/24 Hank Guzman MD [address] [place] [phone] Insurance Assigned Provider 09/20/23 11/20/24 Hank Guzman MD [address] [place] [address] [email or web address] Insurance Assigned Provider 09/20/23 12/25/24 Hank Guzman MD [address] [place] [address] Insurance Assigned Provider 09/20/23 01/22/25 Hank Guzman MD [address] [place] [address] [email or web address] Insurance Assigned Provider 09/20/23 02/19/25 documented as of this encounter Additional Source Comments The information contained in this document represents components of the legal health record. It is not the complete legal health record.[facility]
--- OUTSIDE RECORDS SUMMARY | 2025-02-23 16:04 | XMS_ITS | Encounter Summary ---
Author Organization [facility] Address [address] [facility] [address] [place] [address] Phone Care Team Providers Care Relief Manager Name Role Phone Laura Botello MD Primary Care Provi hilda Jannette Ramirez MD Primary Care Provider [phone] Kiki Norman MD Primary Care Provid er Cassie Perez MD Unavailable [phone] Unknown, Unknown Primary Care Provider Hank Anne MD Primary Care Provider [phone] Hank Guzman MD Unavailable Clementine Freeman MD Primary Care Provider Cassie Perez MD Unavailable [phone] Hank Guzman MD Unavailable Hank Guzman MD Unavailable Hank Guzman MD Unavailable Hank Guzman MD Unavailable Hank Guzman MD Unavailable Encounter Details Date Type Department Care Team (Late st Contact Info) Description 04/17/2020 Procedure Pass [facility], Ct Scan - [address] [address] Social History Tobacco Use Types Packs/Day Years [...] documented as of this encounter Care Teams Relief Manager Relationship Specialty Start Date End Date Laura Botello MD [email or web address] PCP - General Internal Medicine 01/18/20 05/04/20 Jannette Ramirez MD [email or web address] PCP - General Internal Medicine 05/05/20 10/23/21 Kiki Norman MD [address] [place] [address] [email or web address] PCP - General Family Medicine 10/24/21 04/18/22 Unknown, Traci, PCP - General 04/22/22 05/19/22 Hank Guzman MD [address] [place] [address] [email or web address] PCP - General Internal Medicine 05/20/22 04/30/23 Clementine Freeman MD [address] [place] [address] [email or web address] PCP - General Internal Medicine 05/01/23 Cassie Perez MD [address] [address] [email or web address] Consulting Provider Geriatric Medicine 11/09/21 Hank Guzman MD [address] [place] [address] [email or web address] Insurance Assigned Provider 09/20/23 09/19/24 Cassie Perez MD [address] [address] [email or web address] [email or web address] Medicine 04/19/24 Hank Guzman MD [address] [place] [address] [email or web address] Insurance Assigned Provider 09/20/23 10/23/24 Hank Guzman MD [address] [place] [address] [email or web address] Insurance Assigned Provider 09/20/23 11/20/24 Hank Guzman MD [address] [place] [address] Insurance Assigned Provider 09/20/23 12/25/24 Hank Guzman MD [address] [place] [address] Insurance Assigned Provider 09/20/23 01/22/25 Hank Guzman MD [address] [place] [address] [email or web address] Insurance Assigned Provider 09/20/23 02/19/25 documented as of this encounter Additional Source Comments The information contained in this document represents components of the legal health record. It is not the complete legal health record.[facility]
--- OUTSIDE RECORDS SUMMARY | 2025-02-23 16:04 | XMS_ITS | Encounter Summary ---
Author Organization [facility] Address [address] [address] Phone Care Team Providers Care House Calls Nurse Practitioner Name Role Phone Jannette Ramirez MD Primary Care Provider [phone] Kiki Norman MD Primary Care Provid er Cassie Perez MD Unavailable [phone] Unknown, Unknown Primary Care Provider Hank Anne MD Primary Care Provider Hank Guzman MD Unavailable Clementine Freeman MD Primary Care Provider [phone] Cassie Perez MD Unavailable [phone] Hank Guzman MD Unavailable Hank Guzman MD Unavailable Hank Guzman MD Unavailable Hank Guzman MD Unavailable Hank Guzman MD Unavailable Reason for Referral * MRI/CAT Scan - Closed Specialty Diagnoses / Procedures Referred By Jess benedict Referred To Contact Radiology Diagnoses Mild cognitive impairment, so stated Procedures CT Head Jannette Ramirez MD Phone: tel: fax: [email or web address] Referral ID Status Reason Start Date Expiration Date Visits Re quested Visits Authorized [id number] Closed 08/07/2020 08/07/2021 1 1 Encounter Details Date Type Department Care Team (Latest Contact Info) Description 08/07/2020 Transcribe Orders Virtual Department [address] [place] [phone] Jannette Ramirez MD [address] [place] [phone] [email or web address] Mild cognitive impairment, so stated (Primary Dx) Social History Tobacco Use Types [...] as of this encounter Results * CT HEAD WITHOUT CONTRAST (08/24/2020 2:20 PM EST) Anatomical Region Laterality Modality Head Computed Tomogra phy 08/24/2020 2:57 PM EST Impressions 08/24/2020 3:04 PM EST 1.No acute intracranial abnormality. 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 Narrative 08/24/2020 3:04 PM EST EXAM: CT HEAD WITHOUT CONTRAST Unenhanced CT Scan of the Brain COMPARISON: None TECHNIQUE: Nonenhanced head CT from skull base to vertex. Coronal and sagittal reconstructions were created. Manual dose reduction technique tailored for patient and site of imaging INDICATION: Mild cognitive impairment. Outside Radiology Order FINDINGS: Ventricles, Sulci and extra axial spaces: The ventricles, sulci and cisterns are patent and prominent in keeping with age-related volume loss without hydrocephalous. Brain Parenchyma: No acute hemorrhage or large vascular territory infarct is seen. No mass, midline shift or vasogenic edema. Francisco white differentiation is preserved. 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 Vascular: There is atherosclerotic calcification involving bilateral cavernous carotid and vertebral arteries. Skull Base: Sellar/parasellar structures, pineal gland region and craniovertebral junction are within normal limits. Orbits: The orbits are unremarkable. Paranasal sinuses: The visualized paranasal sinuses and mastoid air cells are clear.. Bones and soft tissues: The calvarium is intact. Soft tissues are unremarkable. Procedure Note Aidan Khalil MD - 08/24/2020 EXAM: CT HEAD WITHOUT CONTRAST Unenhanced CT Scan of the Brain COMPARISON: None TECHNIQUE: Nonenhanced head CT from skull base to vertex. Coronal andsagittal reconstructions were created. Manual dose reduction techniquetailored for patient and site of imaging INDICATION: Mild cognitive impairment. Outside Radiology Order FINDINGS: Ventricles, Sulci and extra axial spaces: The ventricles, sulci andcisterns are patent and prominent in keeping with age-related volume losswithout hydrocephalous. Brain Parenchyma: No acute hemorrhage or large vascular territory infarctis seen. No mass, midline shift or vasogenic edema. Francisco whitedifferentiation is preserved. There are moderately extensive confluenthypodensities in the subcortical periventricular and deep white matter,nonspecific, likely secondary to small vessel ischemic disease. Vascular: There is atherosclerotic calcification involving bilateralcavernous carotid and vertebral arteries. Skull Base: Sellar/parasellar structures, pineal gland region andcraniovertebral junction are within normal limits. Orbits: The orbits are unremarkable. Paranasal sinuses: The visualized paranasal sinuses and mastoid air cellsare clear.. Bones and soft tissues: The calvarium is intact. Soft tissues areunremarkable. IMPRESSION: 1.No acute intracranial abnormality. 2.Moderately extensive white matter changes are nonspecific, most likelysecondary to chronic microangiopathic changes. us Jannette Ramirez MD IM CT HEAD/NECK Final Resu lt documented in this encounter Visit Diagnoses Diagnosis Mild cognitive impairment, so stated- Primary Mild cognitive impairment, so stated documented in this encounter Additional Health Concerns Infection Onset Date Last Indicated Resolved Time CoV-Risk 05/20/2022 05/20/2022 05/31/2022 1:23 AM EST documented as of this encounter Care Teams House Calls Nurse Practitioner Relationship Specialty Start Date End Date Jannette Ramirez MD [email or web address] PCP - General Internal Medicine 05/05/20 10/23/21 Kiki Norman MD [address] [address] [email or web address] PCP - General Family Medicine 10/24/21 04/18/22 Unknown, Traci, PCP - General 04/22/22 05/19/22 Hank Guzman MD [address] [place] [address] [email or web address] PCP - General Internal Medicine 05/20/22 04/30/23 Clementine Freeman MD [address] [place] [address] [email or web address] PCP - General Internal Medicine 05/01/23 Cassie Perez MD [address] [place] [address] [email or web address] Consulting Provider Geriatric Medicine 11/09/21 Hank Guzman MD [address] [place] [address] [email or web address] Insurance Assigned Provider 09/20/23 09/19/24 Cassie Perez MD [address] [place] [phone] Geriatric Medicine 04/19/24 Hank Guzman MD [address] [place] [address] Insurance Assigned Provider 09/20/23 10/23/24 Hank Guzman MD [address] [place] [phone] Insurance Assigned Provider 09/20/23 11/20/24 Hank Guzman MD [address] [place] [address] Insurance Assigned Provider 09/20/23 12/25/24 Hank Guzman MD [address] [place] [address] Insurance Assigned Provider 09/20/23 01/22/25 Hank Guzman MD [address] [place] [phone] Insurance Assigned Provider 09/20/23 02/19/25 documented as of this encounter Additional Source Comments The information contained in this document represents components of the legal health record. It is not the complete legal health record.[facility]
--- OUTSIDE RECORDS SUMMARY | 2025-02-23 16:04 | XMS_ITS | Encounter Summary ---
Author Organization [facility] Address [address] [facility] [address] [place] [address] Phone Care Team Providers Care Sql Ssrs Developer Name Role Phone Jannette Ramirez MD Primary Care Provider [phone] Kiki Norman MD Primary Care Provid er Cassie Perez MD Unavailable [phone] Unknown, Unknown Primary Care Provider Hank Anne MD Primary Care Provider Hank Guzman MD Unavailable Clementine Freeman MD Primary Care Provider [phone] Cassie Perez MD Unavailable [phone] Hank Guzman MD Unavailable Hank Guzman MD Unavailable Hank Guzman MD Unavailable Hank Guzman MD Unavailable Hank Guzman MD Unavailable Encounter Details Date Type Department Care Team (Late st Contact Info) Description 08/07/2020 Procedure [facility], Ct Scan - [address] [address] Social History Tobacco Use Types Packs/Day Years [...] documented as of this encounter Care Teams Sql Ssrs Developer Relationship Specialty Start Date End Date Jannette Ramirez MD [email or web address] PCP - General Internal Medicine 05/05/20 10/23/21 Kiki Norman MD [address] [place] [phone] [email or web address] PCP - General Family Medicine 10/24/21 04/18/22 Unknown, Traci, MD PCP - General 04/22/22 05/19/22 Hank Guzman MD [address] [place] [address] [email or web address] PCP - General Internal Medicine 05/20/22 04/30/23 Clementine Freeman MD [address] [place] [address] [email or web address] PCP - General Internal Medicine 05/01/23 Cassie Perez MD [address] [place] [phone] [email or web address] Consulting Provider Geriatric Medicine 11/09/21 Hank Guzman MD [address] [place] [address] Insurance Assigned Provider 09/20/23 09/19/24 Cassie Perez MD [address] [place] [address] [email or web address] Geriatric Medicine 04/19/24 Hank Guzman MD [address] [place] [address] Insurance Assigned Provider 09/20/23 10/23/24 Hank Guzman MD [address] [place] [address] Insurance Assigned Provider 09/20/23 11/20/24 Hank Guzman MD [address] [place] [address] Insurance Assigned Provider 09/20/23 12/25/24 Hank Guzman MD [address] [place] [address] Insurance Assigned Provider 09/20/23 01/22/25 Hank Guzman MD [address] [place] [address] Insurance Assigned Provider 09/20/23 02/19/25 documented as of this encounter Additional Source Comments The information contained in this document represents components of the legal health record. It is not the complete legal health record.[facility]
--- OUTSIDE RECORDS SUMMARY | 2025-02-23 16:04 | XMS_ITS | Encounter Summary ---
Author Organization [facility] Address [address] [address] Phone Care Team Providers Care Steel Analyst Name Role Phone Cassie Perez MD Unavailable [phone] Hank Guzman MD Unavailable Clementine Freeman MD Primary Care Provider [phone] Cassie Perez MD Unavailable [phone] Hank Guzman MD Unavailable Hank Guzman MD Unavailable Hank Guzman MD Unavailable Hank Guzman MD Unavailable Hank Guzman MD Unavailable Encounter Details Date Type Department Care Team (Late st Contact Info) Description 11/21/2023 Transcribe Orders Virtual Department [address] [place] [address] Clementine Freeman MD [address] [place] [phone] [email or web address] Pneumonia due to infectious organism, unspecified laterality, unspecified part of lung (Primary Dx) Social History Tobacco Use Types [...] as of this encounter Visit Diagnoses Diagnosis Pneumonia due to infectious organism, unspecified laterality, unspecified part of lung- Primary documented in this encounter Additional Health Concerns Assessment Noted Time PHQ-9 Depression Total Score: 2 08/19/19 9:08 PM EST PHQ-2 Depression Total Score: 0 08/19/19 9:08 PM EST documented as of this encounter Care Teams Steel Analyst Relationship Specialty Start Date End Date Clementine Freeman MD [address] [place] [address] [email or web address] PCP - General Internal Medicine 05/01/23 Cassie Perez MD [email or web address] Consulting Provider Geriatric Medicine 11/09/21 Hank Guzman MD [address] [place] [address] Insurance Assigned Provider 09/20/23 09/19/24 Cassie Perez MD Geriatric Medicine 04/19/24 Hank Guzman MD [address] [place] [address] [email or web address] Insurance Assigned Provider 09/20/23 10/23/24 Hank Guzman MD [address] [place] [address] [email or web address] Insurance Assigned Provider 09/20/23 11/20/24 Hank Guzman MD [address] [place] [address] [email or web address] Insurance Assigned Provider 09/20/23 12/25/24 Hank Guzman MD [address] [place] [address] Insurance Assigned Provider 09/20/23 01/22/25 Hank Guzman MD [address] [place] [address] [email or web address] Insurance Assigned Provider 09/20/23 02/19/25 documented as of this encounter Additional Source Comments The information contained in this document represents components of the legal health record. It is not the complete legal health record.[facility]
--- OUTSIDE RECORDS SUMMARY | 2025-02-23 16:04 | XMS_ITS | Encounter Summary ---
Author Organization [facility] Address [address] [facility] [address] [place] [address] Phone Care Team Providers Care Chemist Name Role Phone Jannette Ramirez MD Primary Care Provider [phone] Kiki Norman MD Primary Care Provid er Cassie Perez MD Unavailable [phone] Unknown, Unknown Primary Care Provider Hank Anne MD Primary Care Provider Hank Guzman MD Unavailable Clementine Freeman MD Primary Care Provider [phone] Cassie Perez MD Unavailable [phone] Hank Guzman MD Unavailable Hank Guzman MD Unavailable Hank Guzman MD Unavailable Hank Guzman MD Unavailable Hank Guzman MD Unavailable Encounter Details Date Type Department Care Team (Late st Contact Info) Description 11/20/2020 Procedure Pass [facility], Ct Scan - [address] [address] Social History Tobacco Use Types Packs/Day Years [...] documented as of this encounter Care Teams Chemist Relationship Specialty Start Date End Date Jannette Ramirez MD [email or web address] PCP - General Internal Medicine 05/05/20 10/23/21 Kiki Norman MD [address] [place] [address] [email or web address] PCP - General Family Medicine 10/24/21 04/18/22 Unknown, Traci, MD PCP - General 04/22/22 05/19/22 Hank Guzman MD [address] [place] [address] [email or web address] PCP - General Internal Medicine 05/20/22 04/30/23 Clementine Freeman MD [address] [place] [address] [email or web address] PCP - General Internal Medicine 05/01/23 Cassie Preez MD [address] [place] [address] [email or web address] Consulting Provider Geriatric Medicine 11/09/21 Hank Guzman MD [address] [place] [address] Insurance Assigned Provider 09/20/23 09/19/24 Cassie Perez MD [address] [place] [address] [email or web address] Geriatric Medicine 04/19/24 Hank Guzman MD [address] [place] [address] Insurance Assigned Provider 09/20/23 10/23/24 Hank Guzman MD [address] [place] [address] Insurance Assigned Provider 09/20/23 11/20/24 Hank Guzman MD [address] [place] [address] Insurance Assigned Provider 09/20/23 12/25/24 Hank Guzman MD [address] [place] [address] Insurance Assigned Provider 09/20/23 01/22/25 Hank Guzman MD [address] [place] [address] Insurance Assigned Provider 09/20/23 02/19/25 documented as of this encounter Additional Source Comments The information contained in this document represents components of the legal health record. It is not the complete legal health record.[facility]
--- OUTSIDE RECORDS SUMMARY | 2025-02-23 16:04 | XMS_ITS | Clinical Summary ---
Author Organization [facility] Address [address] [address] Phone Care Team Providers Care Paper Steamer Name Role Phone Cassie Perez MD Unavailable [phone] Clementine Freeman MD Primary Care Provider Cassie Perez MD Unavailable [phone] Allergies Active Allergy Reactions Criticality Noted Date Comments Penicillins 04/17/2020 Childhood Medications cyanocobalamin, vitamin B-12, 100 MCG tablet Take 100 mcg by mouth daily. Active multivitamin-mine rals-lutein (CENTRUM SILVER) Tab Take 1 tablet by mouth daily. Active fluticasone propionate (FLONASE) 50 mcg/actuation nasal sprayIndications: Seasonal allergic rhinitis due to pollen 2 sprays by Nasal route daily. 2 sprays in each nostril once daily 18.2 mL 3 2 Active quinapriL (ACCUPRIL) 40 MG tabletIndications :Essential hypertension Take 1 tablet (40 mg total) by mouth nightly at bedtime. 90 tablet 3 3 Active aspirin 81 MG EC tablet Take 81 mg by mouth daily. Active simvastatin (ZOCOR) 20 MG tabletIndications :Essential hypertension TAKE 1 TABLET NIGHTLY AT BEDTIME 90 tablet 4 Active hydroCHLOROthiazi de (MICROZIDE) 12.5 mg capsuleIndication s:Essential hypertension TAKE 1 CAPSULE DAILY 90 capsule 4 Active Active Problems Problem Noted Date Diagnosed Date Seborrheic keratoses 01/07/2023 Assessment & Plan (01/07/2023 2:17 PM EDT): Provided assurance about the thickened skin lesions that were clearly several keratoses but I did encouraged to go to the modern greek studies professor as was already scheduled because of the prior history of skin cancer. Belching 01/07/2023 Assessment & Plan (01/07/2023 2:18 PM EDT): This has been going on for about 3 weeks and his exam was unremarkable. I would hold off on ordering an upper GI series but would do so if the symptoms persist into January but say January 18. 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 Will obtain a TSH today and start patient on levothyroxine if free T4 is low. Otherwise we will continue to observe and check labs every 6 months. Assessment & Plan (12/22/2021 2:48 PM EDT): Subclinical hypothyroidism pattern, no need to treat at this time. Will monitor for progression to overt hypothyroidism. Repeat TSH with reflex in 6 months. Ordered. History of prostate cancer 11/12/2021 Mixed hyperlipidemia 11/12/2021 Memory change 11/12/2021 Assessment & Plan (08/19/2022 3:54 PM EST): Would notHe is exhibiting patterns of dementia on most recent neuro psych testing. Patient amenable to be referred to neurology for nonurgent consult. Essential hypertension 11/12/2021 Assessment & Plan (08/19/2022 3:53 PM EST): Hypertension well controlled with current listed antihypertensives. Denies side effects No change to dosing. Low Sodium diet reinforced. Continue to monitor condition. Check electrolytes kidney function, maintain current antihypertensives. 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 11/12/2021 Closed fracture of right olecranon process 10/23 Encounters Date Type Department Care Team Description 01/27/2025 2:21 PM EDT - 01/27/2025 11:59 PM EDT Hospital Encounter [facility] [address] [place] [address] Clementine Freeman MD Discharge Disposition: Home or Self Care 01/27/2025 Transcribe Orders [facility] [address] [place] [address] Clementine Freeman MD Altered mental status, unspecified altered mental status type (Primary Dx) from Last 3 Months Immunizations Immunization Administration Dates Next Due COVID-19 (Pre-04/07) Pfizer Vaccine, mRNA, PF 08/10/2020,07/20/2020 Influenza High-Dose Quadriva lent Preservative Free IM 03/16/2023,03/12/2021,03/24/2020,04/12 Influenza Quadrivalent Adjuv anted Preservative Free IM 03/28/2022 Pneumococcal conjugate PCV13 11/01/2015 Pneumococcal polysaccharide PPSV23 03/16/2018, Td (adult),2 Lf Tetanus Toxo id, PF, Adsorbed 11/12/2005 Tdap 04/10/2018 Zoster live 02/04/2011 Family History Medical History Relation Comments Prostate cancer Brother 2 COPD Father Relation Status Comments Brother 1 Alive Brother 2 Alive Father Mother Social History Tobacco Use Types Packs/Day Years Used Date Smoking Tobacco: Never Smokeless Tobacco: Never Tobacco Cessation:Counseling Given: Not Answered Alcohol Use Standard Drinks/Week Comments Yes 0 [...] or Fall 04/17/2020 8: 22 PM EST Last Filed Vital Signs Vital Sign Reading Time Taken Comments Blood Pressure 126/64 08/20/2023 9:49 AM EST Pulse 76 08/20/2023 9:49 AM EST Temperature 36.7 C (98.1 F) 02/25/2023 2:42 PM EDT Respiratory Rate 16 05/20/2022 5:03 PM EST Oxygen Saturation 97% 08/20/2023 9:4 9 AM EST Inhaled Oxygen Concentration - - Weight 70.2 kg (154 lb 12.8 oz) 08/20/2023 9:49 AM EST light coat and shoes Height 170.2 cm (5' 7 ) 03/25/2023 2:04 PM EDT Body Mass Index 24.25 03/25/2023 2:04 PM EDT Plan of Treatment Health Maintenance Due Date Last Done Comments HEPATITIS A VACCINES (1 of 2 - Risk 2-dose series) 1954 ZOSTER VACCINES (2 of 3) 04/01/2011 02/04/2011 DEPRESSION SCREENING 08/18/2024 08/19/2023, 08/19/19 24 INFLUENZA VACCINE (#1) 2025 , 03/16/2023, 06/13/2022, Additional history exists COVID-19 VACCINE ( season) 2025 04/12/2024, 09/20/2023, 03/16/2023, Additional history exists TSH LEVEL 04/13/2025 10/12/2024, 06/17, 03/31/2024, Additional history exists POTASSIUM LEVEL 10/12/2025 10/12/2024, 06/17, 03/31/2024, Additional history exists Adult Td,Tdap Booster 04/10/2028 04/10/2018, 006 PNEUMOCOCCAL VACCINES (50+ years) Completed 03/16/2018, 11/01/2015, 11/14/2010 RSV VACCINE Completed 05/20/2023 HIB VACCINES Aged Out No longer eligi ble based on patient's age to complete this topic MENINGOCOCCAL VACCINES (ACWY) Aged Out No longer eligible based on patient's age to complete this topic MENINGOCOCCAL VACCINES (B) Aged Out N o longer eligible based on patient's age to complete this topic Medical Devices Implanted Type Area Cooperative Education Coordinator Device Identifier Shelf Expiration Date Model / Serial / Lot Plate 90mm 5 Hole Olecranon Titanium Standard Right - [id number] Implanted:Qty: 1 on 07/14/2020 by Trip Yarbrough DO at [facility] Right: Olecranon [employer] 70-0305 / / Screw Bone 18x2.7mm Tap Loc Hexalobe Titanium Variable Angle Locking Full Thread Distal - [id number] Implanted:Qty: 2 on 07/14/2020 by Trip Yarbrough DO at [facility] Right: Olecranon [employer] 30-0329 / / Screw Bone 20x2.7mm Tap Loc Hexalobe Titanium Variable Angle Locking Full Thread Distal - [id number] Implanted:Qty: 2 on 07/14/2020 by Trip Yarbrough DO at [facility] Right: Olecranon [employer] 30-0330 / / Screw Bone 3.0x50mm Tap Loc Hexalobe Titanium Variable Angle Locking Full Thread Distal - [id number] Implanted:Qty: 1 on 07/14/2020 by Trip Yarbrough DO at [facility] Right: Olecranon [employer] 30-0296 / / Screw Bone 16x3.5mm Radius Tap Loc Hexalobe Titanium Volar Distal Plating Locking Full Thread - [id number] Implanted:Qty: 1 on 07/14/2020 by Trip Yarbrough DO at [facility] Right: Olecranon [employer] 30-0259 / / Screw Bone 20x3.5mm Radius Tap Loc Hexalobe Titanium Volar Distal Plating Locking Full Thread - [id number] Implanted:Qty: 1 on 07/14/2020 by Trip Yarbrough DO at [facility] Right: Olecranon [employer] 30-0261 / / Screw Bone 18x3.5mm Radius Tap Loc Hexalobe Titanium Volar Distal Plating Locking - [id number] Implanted:Qty: 1 on 07/14/2020 by Trip Yarbrough DO at [facility] Right: Olecranon [employer] 30-0237 / / Screw Bone 22x3.5mm Radius Tap Loc Hexalobe Titanium Volar Distal Plating Locking - [id number] Implanted:Qty: 1 on 07/14/2020 by Trip Yarbrough DO at [facility] Right: Melany CHARLES [id number] / / Procedures Procedure Name Priority Date/Time Associated Diagnosis Comments URINE SEDIMENT Routine 01/27/2025 2:34 PM EDT URINALYSIS W/REFLEX URINE CULTURE Routine 01/27/2025 2:34 PM EDT Altered mental status, unspecified altered mental status type URINE CULTURE Routine 01/27/2025 2:34 PM EDT TSH Routine 10/12/2024 10:25 AM EDT Hypothyroidism, unspecified type Hyperlipidemia, unspecified hyperlipidemia type COMPREHENSIVE METABOLIC PANEL Routine 10/12/2024 10:25 AM EDT Hypothyroidism, unspecified type Hyperlipidemia, unspecified hyperlipidemia type from Last 3 Months or Most Recently Relevant to Health Maintenance Results * (ABNORMAL) Urinalysis w/reflex Urine Culture (01/27/2025 2:34 PM EDT) COLOR Yellow Yellow [facility] CLARITY Clear [facility] GLUCOSE Negative Negative [facility] BILI Negative Negative [facility] KETONES Trace(A) Negative [facility] SPECIFIC GRAVITY 1.015 1.005 - 1.030 [facility] BLOOD Negative Negative [facility] PH 7.0 5.0 - 8.0 [facility] Protein-UA 1+(A) Negative [facility] NITRITE Negative Negative [facility] Leukocyte esterase, ur Trace(A) Negative [facility] Urine (Urine) 01/27/2025 2:3 4 PM EDT 01/27/2025 2:36 PM EDT us Clementine Freeman MD URINE ORDERABLES Final Resu lt [address] [address] * (ABNORMAL) Urine Culture (01/27/2025 2:34 PM EDT) Special Requests None Reflexed from [id number] 01/27/2025 6:40 PM EDT [facility] Urine Culture 10,000 to 100,000 colony forming units per mL MIXED DEBBY (3 OR MORE COLONY TYPES) Culture indicates contamination . Please resubmit if necessary.(A) 01/28/2025 11:33 AM EDT [facility] Urine 01/27/2025 2:34 PM EDT 01/27/2025 2:36 PM EDT Clementine Freeman MD MICROBIOLOGY - GENERAL ORDE [facility] Final Result Performing Organization Address [facility]/ZIP Co de Phone Number [address] [address] * (ABNORMAL) Urine sediment (01/27/2025 2:34 PM EDT) WBC 11-20(A) NONE SEEN /hpf [facility] RBC 0-2(A) NONE SEEN /hpf [facility] URINE EPITHELIAL 5-10(A) NONE SEEN [facility] MUCUS 3+(A) NONE SEEN /hpf [facility] BACTERIA Trace(A) NONE SEEN /hpf [facility] CRYSTALS 2+ [facility] Comment:Calcium Oxalate 01/27/2025 2:34 PM EDT 01/27/2025 2:36 PM EDT Clementine Freeman MD URINE ORDERABLES Final Resu lt Performing Organization Address City/[facility]/ZIP Co de Phone Number [address] [address] * (ABNORMAL) Comprehensive metabolic panel (10/12/2024 10:25 AM EDT) SODIUM 137 133 - 146 mmol/L [facility] POTASSIUM 4.4 3.3 - 5.1 mmol/L [facility] CHLORIDE 103 96 - 108 mmol/L [facility] CO2 27 21 - 35 mmol/L [facility] BUN 17 6 - 19 mg/dL [facility] CREATININE 0.90 0.5 - 1.5 mg/dL [facility] GLUCOSE 88 70 - 99 mg/dL [facility] ALBUMIN 3.3(L) 3.9 - 4.8 g/dL [facility] TOTAL PROTEIN 8.0 6.5 - 8.0 g/dL [facility] CALCIUM 9.7 8.4 - 10.3 mg/dL [facility] ALKALINE PHOSPHATASE 118(H) 39 - 117 U/L [facility] TOTAL BILIRUBIN 0.4 0.0 - 1.2 mg/dL [facility] AST 22 0 - 37 U/L [facility] ALT 15 0 - 40 U/L [facility] GLOBULIN 4.7 1 - 4.8 g/dL [facility] EGFR 83 >59 mL/min/1.7 3m2 [facility] Comment:Estimated glomerular filtration rate calculated using the CKD-EPI refit equation. ANION GAP 11 10 - 20 mmol/L [facility] Blood 10/12/2024 10:2 5 AM EDT 10/12/2024 10:30 AM EDT us Clementine Freeman MD LAB BLOOD ORDERABLES Final Result Performing Organization Address [facility] Co de Phone Number [address] [address] * TSH (10/12/2024 10:25 AM EDT) TSH 3.14 0.27 - 4.20 uIU/mL [facility] Blood 10/12/2024 10:2 5 AM EDT 10/12/2024 10:30 AM EDT us Clementine Freeman MD LAB BLOOD ORDERABLES Final Result Performing Organization Address [facility] Co de Phone Number [address] [address] from Last 3 Months or Most Recently Relevant to Health Maintenance Insurance MEDICARE PART A & B [email or web address] MEDEX SUPPLEMENT MEDICARE PART A & B [employer] [facility] CROSS MEDEX SUPPLEMENT MEDICARE PART A & B MEDICARE PART A & B [place] MEDICARE PART A & B Member Subscriber Plan / Payer (Ef fective 2002-Present) Name:Karsten Mendez Member ID:[id number] Relation to Subscriber:Self Name:Vanessa Karsten Subscriber ID:[id number] Payer ID:[id number] Group ID:Not on file Type:Medicare Address: [employer] [id number] BLUE CROSS MEDEX SUPPLEMENT MEDICARE PART A & B MEDICARE PART A & B [employer] SUPPLEMENT MEDICARE PART A & B [facility] CROSS MEDEX SUPPLEMENT MEDICARE PART A & B [employer] MEDEX SUPPLEMENT Advance Directives For more information, please contact: [phone] (9AM - 5PM [facility], Friday-Friday) Healthcare Agents on File Name Relationship Healthcare Agent [facility] Communication Mamadou Beard Other .Primary Health Care Agent (Proxy form on file) Care Teams Paper Steamer Relationship Specialty Start Date End Date Clementine Freeman MD [address] [place] [phone] PCP - General Internal Medicine 05/01/23 Cassie Perez MD Consulting Provider Geriatric Medicine 11/09/21 Cassie Perez MD Geriatric Medicine 04/19/24 Additional Source Comments The information contained in this document represents components of the legal health record. It is not the complete legal health record.[facility]
--- OUTSIDE RECORDS SUMMARY | 2025-02-23 16:04 | XMS_ITS | Encounter Summary ---
Author Organization [facility] Address [address] [facility] [address] [place] [address] Phone Care Team Providers Care Product Marketing Consultant Name Role Phone Laura Botello MD Primary Care Provi hilda Jannette Ramirez MD Primary Care Provider Kiki Norman MD Primary Care Provid er Cassie Perez MD Unavailable Unknown, Unknown Primary Care Provider Hank Anne MD Primary Care Provider Hank Guzman MD Unavailable Clementine Freeman MD Primary Care Provider Cassie Perez MD Unavailable Hank Guzman MD Unavailable Hank Guzman MD Unavailable Hank Guzman MD Unavailable Hank Guzman MD Unavailable Hank Guzman MD Unavailable Encounter Details Date Type Department Care Team (Late st Contact Info) Description 01/14/2020 Transcribe Orders [facility] Department [address] [place] [address] Laura Botello MD [address] [place], [place] [id number] [email or web address] Encounter for laboratory testing for COVID-19 virus (Primary Dx) Social History Tobacco Use Types Packs/Day Years Used Date Smoking Tobacco: Never Assessed Sex and Gender Information Value Date Recorded Sex Assigned at Male 04/17/2020 8:22 PM EST Legal Sex Male 4:54 PM EDT Gender Identity Male 04/17/2020 8:22 PM EST Sexual Orientation Lesbian or Fall 04/17/2020 8: 22 PM EST documented as of this encounter Plan of Treatment Not on file documented as of this encounter Results * COVID-19 PCR Order (02/04/2020 2:18 PM EDT) Specimen Source NASOPHARYNGEAL SWAB (FOOD STOREROOM CLERK) [facility] COVID Testing Status Sent to [facility] Micro Lab [facility] Other 02/04/2020 2:18 PM EDT 02/04/2020 4:55 PM EDT us Laura Botello MD BODY FLUIDS AND STO OLS ORDERABLES Final Result [address] [address] documented in this encounter Visit Diagnoses Diagnosis Encounter for laboratory testing for COVID-19 virus- Primary documented in this encounter Additional Health Concerns Infection Onset Date Last Indicated Resolved Time CoV-Risk 05/20/2022 05/20/2022 05/31/2022 1:23 AM EST documented as of this encounter Care Teams Product Marketing Consultant Relationship Specialty Start Date End Date Laura Botello MD [email or web address] PCP - General Internal Medicine 01/18/20 05/04/20 Jannette Ramirez MD [email or web address] PCP - General Internal Medicine 05/05/20 10/23/21 Kiki Norman MD [address] [place] [id number] [email or web address] PCP - General Family Medicine 10/24/21 04/18/22 Unknown, Traci, PCP - General 04/22/22 05/19/22 Hank Guzman MD [address] [place] [phone] [email or web address] PCP - General Internal Medicine 05/20/22 04/30/23 Clementine Freeman MD [address] [place] [phone] [email or web address] PCP - General Internal Medicine 05/01/23 Cassie Perez MD [address] [place] [phone] [email or web address] Consulting Provider Geriatric Medicine 11/09/21 Hank Guzman MD [address] [place] [phone] [email or web address] Insurance Assigned Provider 09/20/23 09/19/24 Cassie Perez MD [address] [place] [phone] [email or web address] Geriatric Medicine 04/19/24 Hank Guzman MD [address] [place] [address] Insurance Assigned Provider 09/20/23 10/23/24 Hank Guzman MD [address] [place] [address] Insurance Assigned Provider 09/20/23 11/20/24 Hank Guzman MD [address] [place] [address] [email or web address] Insurance Assigned Provider 09/20/23 12/25/24 Hank Guzman MD [address] [place] [phone] Insurance Assigned Provider 09/20/23 01/22/25 Hank Guzman MD [address] [place] [address] Insurance Assigned Provider 09/20/23 02/19/25 documented as of this encounter Additional Source Comments The information contained in this document represents components of the legal health record. It is not the complete legal health record.[facility]
--- OUTSIDE RECORDS SUMMARY | 2025-02-23 16:04 | XMS_ITS | Encounter Summary ---
Author Organization [facility] Address [address] [facility] [address] [place] [address] Phone Care Team Providers Care Director Of Email Marketing Name Role Phone Jannette Ramirez MD Primary Care Provider [phone] Kiki Norman MD Primary Care Provid er Cassie Perez MD Unavailable [phone] Unknown, Unknown Primary Care Provider Hank Anne MD Primary Care Provider Hank Guzman MD Unavailable Clementine Freeman MD Primary Care Provider [phone] Cassie Perez MD Unavailable Hank Guzman MD Unavailable Hank Guzman MD Unavailable Hank Guzman MD Unavailable Hank Guzman MD Unavailable Hank Guzman MD Unavailable Encounter Details Date Type Department Care Team (Latest Contact Info) Description 08/22/2020 Transcribe Orders [address] [place] [address] Jannette Ramirez MD [address] [place] [phone] [email or web address] Essential hypertension, benign (Primary Dx); Hyperlipidemia, unspecified hyperlipidemia type; Loss of weight Social History Tobacco Use Types Packs/Day Years [...] documented as of this encounter Results * CBC and differential (08/22/2020 10:16 AM EST) WBC 5.04 4.00 - 11.00 K/uL [facility] RBC 4.49 3.90 - 5.69 M/uL [facility] HGB 14.1 12.4 - 17.3 g/dL [facility] HCT 42.6 37.0 - 51.0 % [facility] PLT 232 140 - 430 K/uL [facility] MCV 94.9 78.0 - 97.0 fL [facility] MCH 31.4 25.0 - 33.0 pg [facility] MCHC 33.1 32.0 - 36.0 g/dL [facility] RDW 13.1 11.0 - 15.0 % [facility] MPV 9.0 8.4 - 12.8 fl [facility] NRBC 0.00 0 /100 WBCs [facility] ABSOLUTE NRBC 0.00 0 K/uL [facility] DIFF METHOD Auto [facility] NEUTS 57.0 43.0 - 75.0 % [facility] LYMPHS 31.7 18.2 - 47.4 % [facility] MONOS 7.3 4.00 - 11.00 % [facility] EOS 3.0 0.0 - 8.0 % [facility] BASOS 0.6 0.0 - 2.0 % [facility] Granulocytes, immature (%) 0.4 0.0 - 0.9 % [facility] ABSOLUTE NEUTS 2.87 1.80 - 7.70 K/uL [facility] ABSOLUTE LYMPHS 1.60 1.00 - 3.10 K/uL [facility] ABSOLUTE MONOS 0.37 0.20 - 0.80 K/uL [facility] ABSOLUTE EOS 0.15 0.00 - 0.80 K/uL [facility] ABSOLUTE BASOS 0.03 0.00 - 0.09 K/uL [facility] Granulocytes, immature 0.02 0.00 - 0.05 K/uL [facility] Blood 08/22/2020 10:1 6 AM EST 08/22/2020 10:20 AM EST us Jannette Ramirez MD LAB BLOOD ORDERABLES Final Result Performing Organization Address City/[facility]/ZIP Co de Phone Number [address] [address] * Sedimentation rate (ESR) (08/22/2020 10:16 AM EST) ESR 8 0 - 20 mm/h [facility] Blood 08/22/2020 10:1 6 AM EST 08/22/2020 10:20 AM EST us Jannette Ramirez MD LAB BLOOD ORDERABLES Final Result Performing Organization Address [facility] Co de Phone Number [address] [address] * C-Reactive Protein (08/22/2020 10:16 AM EST) C REACTIVE PROTEIN <3.0 0.0 - 4.0 mg/L [facility] Blood 08/22/2020 10:1 6 AM EST 08/22/2020 10:20 AM EST us Jannette Ramirez MD LAB BLOOD ORDERABLES Final Result Performing Organization Address [facility] Co de Phone Number [address] [address] * LFTs (hepatic panel) (08/22/2020 10:16 AM EST) ALKALINE PHOSPHATASE 103 39 - 117 U/L [facility] TOTAL BILIRUBIN 0.9 0.0 - 1.2 mg/dL [facility] DIRECT BILIRUBIN <0.2 0 - 0.3 mg/dL [facility] Bilirubin (Indirect) NOT CALCULATED 0 - 1.5 mg/dL [facility] AST 20 0 - 37 U/L [facility] ALT 11 0 - 40 U/L [facility] TOTAL PROTEIN 7.2 6.5 - 8.0 g/dL [facility] ALBUMIN 4.1 3.9 - 4.8 g/dL [facility] GLOBULIN 3.1 1 - 4.8 g/dL [facility] A/G Ratio 1.32 1.00 - 4.80 RATIO [facility] Blood 08/22/2020 10:1 6 AM EST 08/22/2020 10:20 AM EST us Jannette Ramirez MD LAB BLOOD ORDERABLES Final Result Performing Organization Address City/State/[facility] Co de Phone Number [address] [address] * Lipid panel (08/22/2020 10:16 AM EST) Pathologist [facility] HDL 48 mg/dL [facility] Comment: Interpretation <40 mg/dL: Low HDL cholesterol (major risk factor for CHD) Greater than or equal to 60 mg/dL: High HDL cholesterol ( negative risk factor for CHD) HDL - cholesterol is affected by a number of factors, e.g. smoking, excerise, hormones, sex and age. CHOLESTEROL 165 0 - 240 mg/dL [facility] TRIGLYCERIDES 80 30 - 160 mg/dL [facility] LDL 101 50 - 129 mg/dL [facility] Comment: LDL levels in terms of risk for coronary heart disease: <100 mg/dL: Optimal 100-129 mg/dL: Near or above optimal 130-159 mg/dL: Borderline high 160-189 mg/dL: High >190 mg/dL: Very High CARDIAC RISK RATIO 3.4 3.4 - 5.0 C [facility] Blood 08/22/2020 10:1 6 AM EST 08/22/2020 10:20 AM EST us Jannette Ramirez MD LAB BLOOD ORDERABLES Final Result Performing Organization Address City/[facility]/ZIP Co de Phone Number [address] [address] * Hemoglobin A1c (08/22/2020 10:16 AM EST) HEMOGLOBIN A1C 5.3 4.3 - 5.8 % [facility] Blood 08/22/2020 10:1 6 AM EST 08/22/2020 10:20 AM EST us Jannette Ramirez MD LAB BLOOD ORDERABLES Final Result Performing Organization Address [facility] Co de Phone Number [address] [address] * (ABNORMAL) Basic metabolic panel (08/22/2020 10:16 AM EST) SODIUM 138 133 - 146 mmol/L [facility] CHLORIDE 104 96 - 108 mmol/L [facility] POTASSIUM 4.5 3.3 - 5.1 mmol/L [facility] CO2 27 21 - 35 mmol/L [facility] BUN 20(H) 6 - 19 mg/dL [facility] CREATININE 0.90 0.5 - 1.5 mg/dL [facility] GLUCOSE 88 70 - 99 mg/dL [facility] CALCIUM 9.4 8.4 - 10.3 mg/dL [facility] EGFR 79 >59 mL/min/1.7 3m2 [facility] Comment:Estimated glomerular filtration rate calculated using the CKD-EPI equation. ANION GAP 12 10 - 20 mmol/L [facility] Blood 08/22/2020 10:1 6 AM EST 08/22/2020 10:20 AM EST us Jannette Ramirez MD LAB BLOOD ORDERABLES Final Result Performing Organization Address City/[facility]/ZIP Co de Phone Number [address] [address] documented in this encounter Visit Diagnoses Diagnosis Essential hypertension, benign- Primary Hyperlipidemia, unspecified hyperlipidemia type Loss of weight documented in this encounter Additional Health Concerns Infection Onset Date Last Indicated Resolved Time CoV-Risk 05/20/2022 05/20/2022 05/31/2022 1:23 AM EST documented as of this encounter Care Teams Director Of Email Marketing Relationship Specialty Start Date End Date Jannette Ramirez MD [email or web address] PCP - General Internal Medicine 05/05/20 10/23/21 Kiki Norman MD [address] [place] [phone] [email or web address] PCP - General Family Medicine 10/24/21 04/18/22 Unknown, Traci, PCP - General 04/22/22 05/19/22 Hank Guzman MD [address] [place] [phone] [email or web address] PCP - General Internal Medicine 05/20/22 04/30/23 Clementine Freeman MD [address] [place] [email or web address] PCP - General Internal Medicine 05/01/23 Cassie Perez MD [address] [place] [address] [email or web address] [email or web address] Provider Geriatric Medicine 11/09/21 Hank Guzman MD [address] [place] [address] [email or web address] Insurance Assigned Provider 09/20/23 09/19/24 Cassie Perez MD [address] [place] [phone] [email or web address] Geriatric Medicine 04/19/24 Hank Guzman MD [address] [place] [address] Insurance Assigned Provider 09/20/23 10/23/24 Hank Guzman MD [address] [place] [address] Insurance Assigned Provider 09/20/23 11/20/24 Hank Guzman MD [address] [place] [address] Insurance Assigned Provider 09/20/23 12/25/24 Hank Guzman MD [address] [place] [address] Insurance Assigned Provider 09/20/23 01/22/25 Hank Guzman MD [address] [place] [address] Insurance Assigned Provider 09/20/23 02/19/25 documented as of this encounter Additional Source Comments The information contained in this document represents components of the legal health record. It is not the complete legal health record.[facility]
--- OUTSIDE RECORDS SUMMARY | 2025-02-23 16:04 | XMS_ITS | Encounter Summary ---
Author Organization [facility] Address [address] [address] Phone Care Team Providers Care Facilities Technician Name Role Phone Cassie Perez MD Unavailable Hank Guzman MD Primary Care Provider [phone] Hank Guzman MD Unavailable Clementine Freeman MD Primary Care Provider Cassie Perez MD Unavailable [phone] Hank Guzman MD Unavailable Hank Guzman MD Unavailable Hank Guzman MD Unavailable Hank Guzman MD Unavailable Hank Guzman MD Unavailable Encounter Details Date Type Department Care Team (Late st Contact Info) Description 04/24/2023 Transcribe Orders Virtual Department [address] [place] [address] Clementine Freeman MD [address] [place] [address] [email or web address] Cardiac murmur, unspecified Social [...] high school, GED, job training, learning the [place] language, technical skills, or developing parenting skills)? [...] documented as of this encounter Care Teams Facilities Technician Relationship Specialty Start Date End Date Hank Guzman MD [address] [place] [address] PCP - General Internal Medicine 05/20/22 04/30/23 Clementine Freeman MD [address] [place] [phone] [email or web address] PCP - General Internal Medicine 05/01/23 Cassie Perez MD Consulting Provider Geriatric Medicine 11/09/21 Hank Guzman MD [address] [place] [address] Insurance Assigned Provider 09/20/23 09/19/24 Cassie Perez MD Geriatric Medicine 04/19/24 Hank Guzman MD [address] [place] [address] Insurance Assigned Provider 09/20/23 10/23/24 Hank Guzman MD [address] [place] [address] [email or web address] Insurance Assigned Provider 09/20/23 11/20/24 Hank Guzman MD [address] [place] [address] [email or web address] Insurance Assigned Provider 09/20/23 12/25/24 Hank Guzman MD [address] [place] [address] [email or web address] Insurance Assigned Provider 09/20/23 01/22/25 Hank Guzman MD [address] [place] [address] [email or web address] Insurance Assigned Provider 09/20/23 02/19/25 documented as of this encounter Additional Source Comments The information contained in this document represents components of the legal health record. It is not the complete legal health record.[facility]
--- OUTSIDE RECORDS SUMMARY | 2025-02-23 16:04 | XMS_ITS | Encounter Summary ---
Author Organization [facility] Address [address] [facility] [address] [place] [address] Phone Care Team Providers Care Orchestra Musician Name Role Phone Jannette Ramirez MD Primary Care Provider [phone] Kiki Norman MD Primary Care Provid er Cassie Perez MD Unavailable [phone] Unknown, Unknown Primary Care Provider Hank Anne MD Primary Care Provider SoHank lomax MD Unavailable Clementine Freeman MD Primary Care Provider [phone] Cassie Perez MD Unavailable Hank Guzman MD Unavailable Hank Guzman MD Unavailable Hank Guzman MD Unavailable Hank Guzman MD Unavailable aHnk Guzman MD Unavailable Encounter Details Date Type Department Care Team (Latest Contact Info) Description 01/19/2021 Transcribe Orders Virtual Department [address] [place] [address] Kiara Camacho CNP [address] [place] [address], [address] [place] [phone] [email or web address] Other hydronephrosis (Primary Dx) Social History Tobacco Use Types [...] documented as of this encounter Results * XR ABDOMEN 1 VIEW (02/12/2021 9:34 AM EDT) Anatomical Region Laterality Modality Abdomen Computed Radiogr aphy 02/12/2021 2:52 PM EDT Impressions 02/12/2021 2:55 PM EDT No definite radiopaque urinary tract stones identified. Narrative 02/12/2021 2:55 PM EDT XR ABDOMEN 1 VIEW Single AP view of the abdomen Comparison: Abdomen/pelvis CT on November 20, 2020 FINDINGS: Multiple small linear opacifications projecting on the left side of the spine likely correlates with known vascular ossifications. Nonobstructive bowel gas pattern. Multiple surgical clips project over the pelvis. No evidence of large amount of intra-abdominal free air. Osseous structures are unremarkable. Procedure Note Aidan Khalil MD - 02/12/2021 XR ABDOMEN 1 VIEW Single AP view of the abdomen Comparison: Abdomen/pelvis CT on November 20, 2020 FINDINGS: Multiple small linear opacifications projecting on the left sideof the spine likely correlates with known vascular ossifications.Nonobstructive bowel gas pattern. Multiple surgical clips project over thepelvis. No evidence of large amount of intra-abdominal free air. Osseousstructures are unremarkable. IMPRESSION: No definite radiopaque urinary tract stones identified. us Kiara Camacho OUTREACH LIBRARIAN IMG XR ABDOMEN Final Resu lt * US Kidneys (02/12/2021 9:26 AM EDT) Anatomical Region Laterality Modality Abdomen, Kidney Ultrasound 02/12/2021 9:32 AM EDT Impressions 02/12/2021 9:40 AM EDT No evidence of hydronephrosis or dilated ureter. Renal cysts bilaterally. Small more dense lesion previously seen on CT lower pole on the right is again not detected sonographically. Narrative 02/12/2021 9:40 AM EDT COMPARISON: Unenhanced CT November 20. Renal ultrasound January 02. FINDINGS: Kidneys: Right kidney measured at 10.2 cm in length and left leg 0.1 cm. No stones are detected. Parapelvic cyst suggested in the interpolar left kidney, measuring 1.1 cm maximally. No stones or masses are detected on the right. Upper pole right renal cyst measures maximally 1.4 cm, unchanged. A small exophytic mildly hyperdense area measuring well under centimeter on the CT at the lower pole does not have a clear sonographic correlate Bladder: Limited imaging demonstrates no bladder stone or definite UVJ stone. Procedure Note Joe Lea MD - 02/12/2021 COMPARISON: Unenhanced CT November 20. Renal ultrasound January 02. FINDINGS: Kidneys: Right kidney measured at 10.2 cm in length and left leg 0.1 cm.No stones are detected. Parapelvic cyst suggested in the interpolar leftkidney, measuring 1.1 cm maximally. No stones or masses are detected onthe right. Upper pole right renal cyst measures maximally 1.4 cm,unchanged. A small exophytic mildly hyperdense area measuring well undercentimeter on the CT at the lower pole does not have a clear sonographiccorrelate Bladder: Limited imaging demonstrates no bladder stone or definite UVJstone. IMPRESSION: No evidence of hydronephrosis or dilated ureter. Renal cysts bilaterally.Small more dense lesion previously seen on CT lower pole on the right isagain not detected sonographically. Kiara Camacho OUTREACH LIBRARIAN IM US RENAL Final Resu lt documented in this encounter Visit Diagnoses Diagnosis Other hydronephrosis- Primary Other hydronephrosis Other hydronephrosis documented in this encounter Additional Health Concerns Infection Onset Date Last Indicated Resolved Time CoV-Risk 05/20/2022 05/20/2022 05/31/2022 1:23 AM EST documented as of this encounter Care Teams Orchestra Musician Relationship Specialty Start Date End Date Jannette Ramirez MD [email or web address] PCP - General Internal Medicine 05/05/20 10/23/21 Kiki Norman MD [address] [place] [phone] [email or web address] PCP - General Family Medicine 10/24/21 04/18/22 Unknown, Traci, PCP - General 04/22/22 05/19/22 Hank Guzman MD [address] [place] [address] [email or web address] PCP - General Internal Medicine 05/20/22 04/30/23 Clementine Freeman MD [address] [place] [address] [email or web address] PCP - General Internal Medicine 05/01/23 Cassie Perez MD [address] [place] [phone] [email or web address] Consulting Provider Geriatric Medicine 11/09/21 Hank Guzman MD [address] [place] [address] [email or web address] Insurance Assigned Provider 09/20/23 09/19/24 Cassie Perez MD [address] [place] [address] [email or web address] Geriatric Medicine 04/19/24 Hank Guzman MD [address] [place] [address] Insurance Assigned Provider 09/20/23 10/23/24 Hank Guzman MD [address] [place] [address] Insurance Assigned Provider 09/20/23 11/20/24 Hank Guzman MD [address] [place] [address] Insurance Assigned Provider 09/20/23 12/25/24 Hank Guzman MD [address] [place] [address] Insurance Assigned Provider 09/20/23 01/22/25 Hank Guzman MD [address] [place] [address] Insurance Assigned Provider 09/20/23 02/19/25 documented as of this encounter Additional Source Comments The information contained in this document represents components of the legal health record. It is not the complete legal health record.[facility]
--- OUTSIDE RECORDS SUMMARY | 2025-02-23 16:05 | XMS_ITS | Encounter Summary ---
Author Organization [facility] Address [address] [address] Phone Care Team Providers Care Channeling Machine Operator Name Role Phone Cassie Perez MD Unavailable [phone] Clementine Freeman MD Primary Care Provider [phone] Cassie Perez MD Unavailable [phone] Hank Guzman MD Unavailable Hank Guzman MD Unavailable Hank Guzman MD Unavailable Hank Guzman MD Unavailable Hank Guzman MD Unavailable Encounter Details Date Type Department Care Team (Late st Contact Info) Description 10/15/2024 Procedure Pass [facility], Ct Scan - [address] [address] Social History Tobacco Use Types Packs/Day Years [...] you moved in the past 12 fri th? One time 10/24/2021 Paying for Meds Answer [...] documented as of this encounter Care Teams Channeling Machine Operator Relationship Specialty Start Date End Date Clementine Freeman MD [address] [place] [phone] [email or web address] PCP - General Internal Medicine 05/01/23 Cassie Perez MD [email or web address] Consulting Provider Geriatric Medicine 11/09/21 Cassie Perez MD [email or web address] Geriatric Medicine 04/19/24 Hank Guzman MD [address] [place] [phone] [email or web address] Insurance Assigned Provider 09/20/23 10/23/24 Hank Guzman MD [address] [place] [phone] [email or web address] Insurance Assigned Provider 09/20/23 11/20/24 Hank Guzman MD [address] [place] [phone] [email or web address] Insurance Assigned Provider 09/20/23 12/25/24 Hank Guzman MD [address] [place] [phone] [email or web address] Insurance Assigned Provider 09/20/23 01/22/25 Hank Guzman MD [address] [place] [phone] [email or web address] Insurance Assigned Provider 09/20/23 02/19/25 documented as of this encounter Additional Source Comments The information contained in this document represents components of the legal health record. It is not the complete legal health record.[facility]
--- OUTSIDE RECORDS SUMMARY | 2025-02-23 16:05 | XMS_ITS | Encounter Summary ---
Author Organization [facility] Address [address] [address] Phone Care Team Providers Care Otr Van Cdl Truck Driver Name Role Phone Cassie Perez MD Unavailable [phone] Clementine Freeman MD Primary Care Provider Cassie Perez MD Unavailable [phone] Hank Guzman MD Unavailable Hank Guzman MD Unavailable Hank Guzman MD Unavailable Hank Guzman MD Unavailable SoHank lomax MD Unavailable Encounter Details Date Type Department Care Team (Late st Contact Info) Description 10/14/2024 Ancillary Orders [facility], X-Ray - [place] [address] [place] [address] Apoorva Aquino PA [address] [place] [address] [email or web address] Pain (Primary Dx); Weight loss Social History Tobacco [...] as of this encounter Results * XR CHEST PA AND LATERAL 2 VIEWS (10/14/2024 3:15 PM EDT) MGB IMG SUPERVISOR CELL ROOM COMMENT Streaky bilateral linear opacities. Cannot exclude nodular component in the right upper lobe. Question thick bandlike atelectasis or small infiltrates. Recommend follow-up chest x-ray or chest CT [facility] Anatomical Region Laterality Modality Chest Computed Radiogr aphy 10/14/2024 3:18 PM EDT Impressions 10/14/2024 3:33 PM EDT Streaky bilateral linear opacities, right lung greater than left. Cannot exclude nodular component in the right upper lobe. Question thick bandlike atelectasis or small infiltrates. Recommend follow-up chest x-ray if there is suggestion of infection. If radiographic abnormality fails to resolve or if there are no symptoms of infection, chest CT should also be considered. A clinically significant result was initiated on 10/14/2024 3:26 PM, Message ID [id number]. Narrative 10/14/2024 3:33 PM EDT XR CHEST PA AND LATERAL 2 VIEWS Referring clinician's provided indication for this examination in [facility]: Weight Loss COMPARISON: None FINDINGS: Devices/Tubes/Lines: None. Lungs: Streaky linear opacities in both lungs in both upper lobes and at the right lung base. Question thick bandlike atelectasis or small infiltrates. Cannot exclude nodular component in the right upper lobe versus changes from the superimposed right anterior third rib. Pleura: Normal. No pleural effusion or pneumothorax. Heart/Mediastinum: Normal heart and mediastinum. Bones/Soft Tissues: Degenerative changes of the spine. Procedure Note Elise Phoenix MD / System, Provider Not In, PhD - 10/14/2024 XR CHEST PA AND LATERAL 2 VIEWS Referring clinician's provided indication for this examination in [facility]:Weight Loss COMPARISON: None FINDINGS: Devices/Tubes/Lines: None. Lungs: Streaky linear opacities in both lungs in both upper lobes and atthe right lung base. Question thick bandlike atelectasis or smallinfiltrates. Cannot exclude nodular component in the right upper lobeversus changes from the superimposed right anterior third rib. Pleura: Normal. No pleural effusion or pneumothorax. Heart/Mediastinum: Normal heart and mediastinum. Bones/Soft Tissues: Degenerative changes of the spine. IMPRESSION: Streaky bilateral linear opacities, right lung greater than left. Cannotexclude nodular component in the right upper lobe. Question thick bandlikeatelectasis or small infiltrates. Recommend follow-up chest x-ray if thereis suggestion of infection. If radiographic abnormality fails to resolveor if there are no symptoms of infection, chest CT should also beconsidered. A clinically significant result was initiated on 10/14/2024 3:26 PM, MessageID [id number]. us Apoorva SHULTZ IMG XR CHEST Edited Result - Final documented in this encounter Visit Diagnoses Diagnosis Pain Generalized pain Weight loss Loss of weight Pain- Primary Generalized pain Weight loss Loss of weight documented in this encounter Additional Health Concerns Assessment Noted Time PHQ-9 Depression Total Score: 2 08/19/19 9:08 PM EST PHQ-2 Depression Total Score: 0 08/19/19 9:08 PM EST documented as of this encounter Care Teams Otr Van Cdl Truck Driver Relationship Specialty Start Date End Date Clementine Freeman MD [address] [place] [email or web address] PCP - General Internal Medicine 05/01/23 Cassie Perez MD Consulting Provider Geriatric Medicine 11/09/21 Cassie Perez MD Geriatric Medicine 04/19/24 Hank Guzman MD [address] [place] [address] Insurance Assigned Provider 09/20/23 10/23/24 Hank Guzman MD [address] [place] [address] Insurance Assigned Provider 09/20/23 11/20/24 Hank Guzman MD [address] [place] [address] Insurance Assigned Provider 09/20/23 12/25/24 Hank Guzman MD [address] [place] [address] Insurance Assigned Provider 09/20/23 01/22/25 Hank Guzman MD [address] [place] [phone] Insurance Assigned Provider 09/20/23 02/19/25 documented as of this encounter Additional Source Comments The information contained in this document represents components of the legal health record. It is not the complete legal health record.[facility]
--- OUTSIDE RECORDS SUMMARY | 2025-02-23 16:05 | XMS_ITS | Encounter Summary ---
Author Organization [facility] Address [address] [address] Phone Care Team Providers Care Tonguer Name Role Phone Cassie Perez MD Unavailable [phone] Clementine Freeman MD Primary Care Provider [phone] Cassie Perez MD Unavailable [phone] Hank Guzman MD Unavailable Hank Guzman MD Unavailable Hank Guzman MD Unavailable Hank Guzman MD Unavailable Hank Guzman MD Unavailable Encounter Details Date Type Department Care Team (Late st Contact Info) Description 10/15/2024 Procedure Pass [facility], Ct Scan - [address] [address] Social History Tobacco Use Types Packs/Day Years [...] documented as of this encounter Care Teams Tonguer Relationship Specialty Start Date End Date Clementine Freeman MD [address] [place] [address] [email or web address] PCP - General Internal Medicine 05/01/23 Cassie Perez MD [email or web address] Consulting Provider Geriatric Medicine 11/09/21 Cassie Perez MD [email or web address] Geriatric Medicine 04/19/24 Hank Guzman MD [address] [place] [phone] [email or web address] Insurance Assigned Provider 09/20/23 10/23/24 Hank Guzman MD [address] [place] [phone] [email or web address] Insurance Assigned Provider 09/20/23 11/20/24 Hank Guzman MD [address] [place] [address] [email or web address] Insurance Assigned Provider 09/20/23 12/25/24 Hank Guzman MD [address] [place] [address] [email or web address] Insurance Assigned Provider 09/20/23 01/22/25 Hank Guzman MD [address] [place] [address] [email or web address] Insurance Assigned Provider 09/20/23 02/19/25 documented as of this encounter Additional Source Comments The information contained in this document represents components of the legal health record. It is not the complete legal health record.[facility]
== END ==
LOC: HO.CARD 13:04
PROVIDERS: PCP Internal Medicine; Visit Provider Internal Medicine
DX: I71.20 Thoracic aortic aneurysm, without rupture, unspecified (principal)
CPT/HCPCS: 93306

== ENCOUNTER → 2025-02-23 13:12 | Outpatient (BNV) | payer MEDICARE, SELFPAY | PROVIDERS: PCP Internal Medicine; Visit Provider Internal Medicine Cardiovascular Disease | DX: I71.20 Thoracic aortic aneurysm, without rupture, unspecified (principal) | CPT/HCPCS: 93306 ==

== ENCOUNTER 2025-03-02 13:42 | Outpatient (AMB) | payer MEDICARE, SELFPAY ==
--- NOTE | 2025-03-02 13:45 | A.OFFVIS_ITS ---
Vital Signs 03/02/25 13:46 Height 5 ft 6 in Weight 125 lb 10.616 oz BMI 20.3 BP 128/68 Blood Pressure Location Lt brachial Position Sitting Pulse 66 Pulse Source Pulse Oximeter Intake Visit Reasons: 6 mth f/up echo Allergies No Known Allergies Allergy (Verified 01/14/25 11:50) Medication List - Last Reconciled 03/02/25 by MD harry [email or web address] (T.E.D. Knee Etsvna-O-Nrragng misc) As directed donepezil 5 mg PO DAILY levothyroxine 25 mcg PO DAILY HPI Comments Details: Karsten returns for follow-up regarding ascending aortic dilatation. Patient himself does not have any complaints. No angina or shortness of breath or any other complaints. He does not have any known coronary disease or myocardial infarction or any prior cardiac issues. According to his partner, patient has Alzheimer's dementia and cannot remember anything. In fact he cannot remember the fact that he came for this appointment. He helps him with almost all activities of daily living. [facility] Medical History (Updated 01/15/25 @ 00:01 by Burton Remy) Pulmonary artery aneurysm Thoracic aortic aneurysm Hypertension Prostate cancer Aphasia Dementia Family History Mother Alzheimer dementia Social History Household Members: Spouse Housing: Assisted Living Facility Do you presently have visiting nurse or other home services: No Alcohol intake: current Alcohol intake frequency: holidays/special occasions only Comment: WINE Patient Tobacco Use Status: Never used Tobacco service: Yes ([employer]) Current occupational status: retired Review of Systems Const Denies weakness ENT Denies dizziness Card Denies chest pain, Denies chest pain with activity, Denies syncope, Denies rapid heart rate, Denies pedal edema, Denies edema, Denies leg edema, Denies lightheadedness, Denies palpitations, Denies dyspnea, Denies dyspnea on exertion and Denies orthopnea Resp Denies cough, Denies dyspnea and Denies dyspnea on exertion GI Denies hematochezia and Denies change in stool character Musc Denies abnormal gait, Denies muscle cramps, Denies muscle weakness, Denies numbness, Denies radiating pain into limb and Denies tingling Neuro Denies abnormal gait, Denies dizziness, Denies syncope, Denies numbness, Denies tingling and Denies weakness Endo Denies palpitations Physical Exam Vital Signs: Last Vital Signs Pulse 66 03/02/25 13:46 BP 128/68 03/02/25 13:46 BMI result Body Mass Index 20.3 Const General: comfortable and no acute distress Orientation/consciousness: patient oriented x3 HEENT Other: Unremarkable Head: Yes normal to inspection Neck Neck: Yes normal visual inspection Chest Chest palpation & inspection: normal inspection of the chest Resp Auscultation: clear to auscultation bilaterally Cardio Palpation: normal PMI Heart sounds: S1 normal heart sound present, S2 normal heart sound present, no gallops, no murmurs and no rubs GI Palpation (GI): Soft to palpation Back/Spine/Pelvis Other: unremarkable Skin General skin exam: no rashes or lesions noted Neuro General: patient oriented x3 Extrem General: Yes normal to inspection Psych Mental Status: mental status grossly normal Assessment & Plan Assessment & Plan (1) 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 In the prior study from 2023, ascending aortic size is similar. Discussed findings with patient's significant other. Patient himself has no insight to any of this. We discussed the fact that even if it enlarges significantly, patient will not be suitable for surgery on account of age, frailty as well as Alzheimer's dementia. He agrees and we decided that we will not monitor this anymore. (2) Orthostasis: Code(s): I95.1 - Orthostatic hypotension Category: Medical Plan: A prior hospitalization for this but no recent issues. Also, it seems he has taken amlodipine in the past but not anymore. Today's blood pressure seems stab le. (3) Dementia: Code(s): F03.90 - Unspecified dementia, unspecified severity, without behavioral disturbance, psychotic disturbance, mood disturbance, and anxiety Category: Medical Plan: Due to dementia, cardiac care will be likely conservative. We had a long conversation about this and partner completely agrees. Plan Discussion Notes During the visit, we discussed the stability of the aortic aneurysm and the decision not to pursue regular monitoring due to the patient's age and Alzheimer's disease. We also reviewed the patient's blood pressure management, noting the discontinuation of amlodipine due to low blood pressure episodes. The focus remains on supportive care for Alzheimer's disease, with no new interventions planned. Patient was informed and verbally consented to the use of an ambient scribe for clinic note documentation during this visit. Patient Instructions: - Monitor blood pressure periodically and report any significant changes. - Ensure safety and provide assistance with daily activities as needed. - Contact the healthcare provider through the patient portal for any questions or concerns. Coding Level of Care Code Est Pt Level 4 (89218) Complex EM visit Add On G2211 Diagnoses Ascending aorta dilatation I77.810 Orthostasis I95.1 Dementia F03.90
[2025-03-02 13:46] VITALS: BP 128/68; PULSE 66; BMI 20.3
--- OUTSIDE RECORDS SUMMARY | 2025-03-02 17:26 | XMS_ITS | Clinical Summary ---
Author Organization [facility] Address [address] [address] Phone Care Team Providers Care Circuit Breaker Mechanic Name Role Phone Cassie Perez MD Unavailable [phone] Clementine Freeman MD Primary Care Provider [phone] Cassie Perez MD Unavailable [phone] Allergies Active Allergy Reactions Criticality Noted [...] I did encouraged to go to the client experience manager as was already scheduled because of the [...] - 01/27/2025 11:59 PM EDT Hospital Encounter [facility] [address] [place] [address] Clementine Freeman MD Discharge Disposition: Home or Self Care 01/27/2025 Transcribe Orders [facility] [address] [place] [address] Clementine Freeman MD Altered mental status, unspecified [...] this topic Medical Devices Implanted Type Area Machine Grainer Device Identifier Shelf Expiration Date Model / Serial / Lot Plate 90mm 5 Hole Olecranon Titanium Standard Right - [id number] Implanted:Qty: 1 on 07/14/2020 by Trip Yarbrough DO at [facility] Right: [employer] 70-0305 / / Screw Bone 18x2.7mm Tap Loc Hexalobe Titanium Variable Angle Locking Full Thread Distal - [id number] Implanted:Qty: 2 on 07/14/2020 by Trip Yarbrough DO at [facility] Right: [employer] 30-0329 / / Screw Bone 20x2.7mm Tap Loc Hexalobe Titanium Variable Angle Locking Full Thread Distal - [id number] Implanted:Qty: 2 on 07/14/2020 by Trip Yarbrough DO at [facility] Right: [employer] 30-0330 / / Screw Bone 3.0x50mm Tap Loc Hexalobe Titanium Variable Angle Locking Full Thread Distal - [id number] Implanted:Qty: 1 on 07/14/2020 by Trip Yarbrough DO at [facility] Right: [employer] 30-0296 / / Screw Bone 16x3.5mm Radius Tap Loc Hexalobe Titanium Volar Distal Plating Locking Full Thread - [id number] Implanted:Qty: 1 on 07/14/2020 by Trip Yarbrough DO at [facility] Right: [employer] 30-0259 / / Screw Bone 20x3.5mm Radius Tap Loc Hexalobe Titanium Volar Distal Plating Locking Full Thread - [id number] Implanted:Qty: 1 on 07/14/2020 by Trip Yarbrough DO at [facility] Right: [employer] 30-0261 / / Screw Bone 18x3.5mm Radius Tap Loc Hexalobe Titanium Volar Distal Plating Locking - [id number] Implanted:Qty: 1 on 07/14/2020 by Trip Yarbrough DO at [facility] Right: [employer] 30-0237 / / Screw Bone 22x3.5mm Radius Tap Loc Hexalobe Titanium Volar Distal Plating Locking - [id number] Implanted:Qty: 1 on 07/14/2020 by Trip Yarbrough DO at [facility] Right: Melany CHARLES [id number] / / Procedures Procedure Name Priority Date/Time [...] (01/27/2025 2:34 PM EDT) COLOR Yellow Yellow [facility] CLARITY Clear [facility] GLUCOSE Negative Negative [facility] BILI Negative Negative [facility] KETONES Trace(A) Negative [facility] SPECIFIC GRAVITY 1.015 1.005 - 1.030 [facility] BLOOD Negative Negative [facility] PH 7.0 5.0 - 8.0 [facility] Protein-UA 1+(A) Negative [facility] NITRITE Negative Negative [facility] Leukocyte esterase, ur Trace(A) Negative [facility] Urine (Urine) 01/27/2025 2:3 4 PM EDT 01/27/2025 2:36 PM EDT us Clementine Freeman MD URINE ORDERABLES Final Resu lt [address] [address] * (ABNORMAL) Urine Culture (01/27/2025 2:34 PM EDT) Special Requests None Reflexed from [id number] 01/27/2025 6:40 PM EDT [facility] Urine Culture 10,000 to 100,000 colony forming units per mL MIXED DEBBY (3 OR MORE COLONY TYPES) Culture indicates contamination . Please resubmit if necessary.(A) 01/28/2025 11:33 AM EDT [facility] Urine 01/27/2025 2:34 PM EDT 01/27/2025 2:36 PM EDT Clementine Freeman MD MICROBIOLOGY - [facility]AL [facility] Final Result Performing Organization Address [facility]/ZIP Co de Phone Number [address] [address] * (ABNORMAL) Urine sediment (01/27/2025 2:34 PM EDT) WBC 11-20(A) NONE SEEN /hpf [facility] RBC 0-2(A) NONE SEEN /hpf [facility] URINE EPITHELIAL 5-10(A) NONE SEEN [facility] MUCUS 3+(A) NONE SEEN /hpf [facility] BACTERIA Trace(A) NONE SEEN /hpf [facility] CRYSTALS 2+ [facility] Comment:Calcium Oxalate 01/27/2025 2:34 PM EDT 01/27/2025 2:36 PM EDT Clementine Freeman MD URINE ORDERABLES Final Resu lt Performing Organization Address City/[facility]/ZIP Co de Phone Number [address] [address] * (ABNORMAL) Comprehensive metabolic panel (10/12/2024 10:25 AM EDT) SODIUM 137 133 - 146 mmol/L [facility] POTASSIUM 4.4 3.3 - 5.1 mmol/L [facility] CHLORIDE 103 96 - 108 mmol/L [facility] CO2 27 21 - 35 mmol/L [facility] BUN 17 6 - 19 mg/dL [facility] CREATININE 0.90 0.5 - 1.5 mg/dL [facility] GLUCOSE 88 70 - 99 mg/dL [facility] ALBUMIN 3.3(L) 3.9 - 4.8 g/dL [facility] TOTAL PROTEIN 8.0 6.5 - 8.0 g/dL [facility] CALCIUM 9.7 8.4 - 10.3 mg/dL [facility] ALKALINE PHOSPHATASE 118(H) 39 - 117 U/L [facility] TOTAL BILIRUBIN 0.4 0.0 - 1.2 mg/dL [facility] AST 22 0 - 37 U/L [facility] ALT 15 0 - 40 U/L [facility] GLOBULIN 4.7 1 - 4.8 g/dL [facility] EGFR 83 >59 mL/min/1.7 3m2 [facility] Comment:Estimated glomerular filtration rate calculated using the CKD-EPI refit equation. ANION GAP 11 10 - 20 mmol/L [facility] Blood 10/12/2024 10:2 5 AM EDT 10/12/2024 10:30 AM EDT us Clementine Freeman MD LAB BLOOD ORDERABLES Final Result Performing Organization Address [facility] Co de Phone Number [address] [address] * TSH (10/12/2024 10:25 AM EDT) TSH 3.14 0.27 - 4.20 uIU/mL [facility] Blood 10/12/2024 10:2 5 AM EDT 10/12/2024 10:30 AM EDT us Clementine Freeman MD LAB BLOOD ORDERABLES Final Result Performing Organization Address [facility] Co de Phone Number [address] [address] from Last 3 Months or Most Recently Relevant to Health Maintenance Insurance MEDICARE PART A & B [employer], Neighbor! MEDEX SUPPLEMENT MEDICARE PART A & B Positionly CROSS MEDEX SUPPLEMENT MEDICARE PART A & B MEDICARE PART A & B [place] MEDICARE PART A & B Member Subscriber Plan / Payer (Ef fective 2002-Present) Name:Karsten Mendez Member ID:[id number] Relation to Subscriber:Self Name:Vanessa Karsten Subscriber ID:[id number] Payer ID:[id number] Group ID:Not on file Type:Medicare Address: [employer] [id number] BLUE CROSS MEDEX SUPPLEMENT MEDICARE PART A & B MEDICARE PART A & B [employer] MEDEX SUPPLEMENT MEDICARE PART A & B Positionly CROSS MEDEX SUPPLEMENT MEDICARE PART A & B BLUE CROSS MEDEX SUPPLEMENT Advance Directives For more information, please contact: [phone] (9AM - 5PM [facility], Friday-Friday) Healthcare Agents on File Name Relationship Healthcare Agent [facility] Communication Mamadou Beard Other .Primary Health Care Agent (Proxy form on file) Care Teams Circuit Breaker Mechanic Relationship Specialty Start Date End Date Clementine Freeman MD [address] [place] [id number] PCP - General Internal Medicine 05/01/23 Cassie Perez MD Consulting Provider Geriatric Medicine 11/09/21 Cassie Perez MD Geriatric Medicine 04/19/24 Additional Source Comments The information contained in this document represents components of the legal health record. It is not the complete legal health record.[facility]
--- OUTSIDE RECORDS SUMMARY | 2025-03-02 17:26 | XMS_ITS | Encounter Summary ---
Author Organization [facility] Address [address] [address] Phone Care Team Providers Care Transfer Operator Name Role Phone Jannette Ramirez MD Primary Care Provider [phone] Kiki Norman MD Primary Care Provid er Cassie Perez MD Unavailable [phone] Unknown, Unknown Primary Care Provider Hank Anne MD Primary Care Provider SoHank lomax MD Unavailable Clementine Freeman MD Primary Care Provider [phone] Cassie Perez MD Unavailable [phone] Hank Guzman MD Unavailable Hank Guzman MD Unavailable Hank Guzman MD Unavailable Hank Guzman MD Unavailable Hank Guzman MD Unavailable Reason for Referral * MRI/CAT Scan - Closed Specialty Diagnoses / Procedures Referred By Jess benedict Referred To Contact Radiology Diagnoses Hydronephrosis, left Urinary frequency Procedures CT Abdomen/Pelvis Anthony Gaytan MD Phone: tel: fax: [email or web address] Referral ID Status Reason Start Date Expiration Date Visits Re quested Visits Authorized [id number] Closed 11/20/2020 11/20/2021 1 1 Encounter Details Date Type Department Care Team (Late st Contact Info) Description 11/20/2020 Ancillary Orders Virtual Department [address] [place] [address] Anthony Gaytan MD [address] [facility] [address] [place] [address] [email or web address] Hydronephrosis, left; Urinary frequency Social History [...] documented as of this encounter Care Teams Transfer Operator Relationship Specialty Start Date End Date Jannette Ramirez MD [email or web address] PCP - General Internal Medicine 05/05/20 10/23/21 Kiki Norman MD [address] [place] [address] [email or web address] PCP - General Family Medicine 10/24/21 04/18/22 Unknown, Traci, PCP - General 04/22/22 05/19/22 Hank Guzman MD [address] [place] [address] [email or web address] PCP - General Internal Medicine 05/20/22 04/30/23 Clementine Freeman MD [address] [place] [address] [email or web address] PCP - General Internal Medicine 05/01/23 Cassie Perez MD [address] [place] [address] [email or web address] Consulting Provider Geriatric Medicine 11/09/21 Hank Guzman MD [address] [place] [address] Insurance Assigned Provider 09/20/23 09/19/24 Cassie Perez MD [address] [place] [address] Geriatric Medicine 04/19/24 Hank Guzman MD [address] [place] [address] Insurance Assigned Provider 09/20/23 10/23/24 Hank Guzman MD [address] [place] [address] Insurance Assigned Provider 09/20/23 11/20/24 Hank Guzman MD [address] [place] [address] [email or web address] Insurance Assigned Provider 09/20/23 12/25/24 Hank Guzman MD [address] [place] [address] Insurance Assigned Provider 09/20/23 01/22/25 Hank Guzman MD [address] [place] [address] [email or web address] Insurance Assigned Provider 09/20/23 02/19/25 documented as of this encounter Additional Source Comments The information contained in this document represents components of the legal health record. It is not the complete legal health record.[facility]
--- OUTSIDE RECORDS SUMMARY | 2025-03-02 17:26 | XMS_ITS | Encounter Summary ---
Author Organization [facility] Address [address] [facility] [address] [place] [address] Phone Care Team Providers Care Asbestos Shingle Roofer Name Role Phone Jannette Ramirez MD Primary Care Provider [phone] Kiki Norman MD Primary Care Provid er Cassie Perez MD Unavailable [phone] Unknown, Unknown Primary Care Provider Hank Anne MD Primary Care Provider Hank Guzman MD Unavailable Clementine Freeman MD Primary Care Provider [phone] Cassie Perez MD Unavailable [phone] Hank Guzman MD Unavailable Hank Guzman MD Unavailable Hank Guzman MD Unavailable Hank Guzman MD Unavailable Hank Guzman MD Unavailable Encounter Details Date Type Department Care Team (Late st Contact Info) Description 08/07/2020 Procedure Pass [facility], Ct Scan - [address] [address] Social History Tobacco Use Types Packs/Day Years [...] documented as of this encounter Care Teams Asbestos Shingle Roofer Relationship Specialty Start Date End Date Jannette Ramirez MD [email or web address] PCP - General Internal Medicine 05/05/20 10/23/21 Kiki Norman MD [address] [place] [address] [email or web address] PCP - General Family Medicine 10/24/21 04/18/22 Unknown, Traci, MD PCP - General 04/22/22 05/19/22 Hank Guzman MD [address] [place] [address] [email or web address] PCP - General Internal Medicine 05/20/22 04/30/23 Clementine Freeman MD [address] [place] [address] [email or web address] PCP - General Internal Medicine 05/01/23 Cassie Perez MD [address] [place] [address] [email or web address] Consulting Provider Geriatric Medicine 11/09/21 Hank Guzman MD [address] [place] [address] Insurance Assigned Provider 09/20/23 09/19/24 Cassie Perez MD [address] [place] [address] [email or web address] Geriatric Medicine 04/19/24 Hank Guzman MD 40 [place] [address] Insurance Assigned Provider 09/20/23 10/23/24 Hank Guzman MD 40 [place] [address] Insurance Assigned Provider 09/20/23 11/20/24 Hank Guzman MD 40 [place] [address] Insurance Assigned Provider 09/20/23 12/25/24 Hank Guzman MD 40 [place] [address] Insurance Assigned Provider 09/20/23 01/22/25 Hank Guzman MD 40 [place] [address] Insurance Assigned Provider 09/20/23 02/19/25 documented as of this encounter Additional Source Comments The information contained in this document represents components of the legal health record. It is not the complete legal health record.[facility]
--- OUTSIDE RECORDS SUMMARY | 2025-03-02 17:26 | XMS_ITS | Encounter Summary ---
Author Organization [facility] Address [address] [facility] [address] [place] [address] Phone Care Team Providers Care Post Acute Care Registered Nurse Name Role Phone Jannette Ramirez MD Primary Care Provider [phone] Kiki Norman MD Primary Care Provid er Cassie Perez MD Unavailable [phone] Unknown, Unknown Primary Care Provider Hank Anne MD Primary Care Provider [phone] SoHank lomax MD Unavailable Clementine Freeman MD Primary Care Provider [phone] Cassie Perez MD Unavailable Hank Guzman MD Unavailable Hank Guzman MD Unavailable Hank Guzman MD Unavailable Hank Guzman MD Unavailable Hank Guzman MD Unavailable Encounter Details Date Type Department Care Team (Latest Contact Info) Description 01/19/2021 Transcribe Orders Virtual Department [address] [place] [address] Kiara Camacho CNP [address] [place] [address], [address] [place] [address] [email or web address] Other hydronephrosis (Primary Dx) [...] definite radiopaque urinary tract stones identified. us Kiraa Camacho LOOM TECHNICIAN IMG XR ABDOMEN Final Resu lt * [...] right isagain not detected sonographically. Kiara Camacho LOOM TECHNICIAN IM US RENAL Final Resu lt documented in this encounter Visit Diagnoses Diagnosis Other hydronephrosis- Primary Other hydronephrosis Other hydronephrosis documented in this encounter Additional Health Concerns Infection Onset Date Last Indicated Resolved Time CoV-Risk 05/20/2022 05/20/2022 05/31/2022 1:23 AM EST documented as of this encounter Care Teams Post Acute Care Registered Nurse Relationship Specialty Start Date End Date Jannette Ramirez MD [email or web address] PCP - General Internal Medicine 05/05/20 10/23/21 Kiki Norman MD [address] [place] [address] [email or web address] PCP - General Family Medicine 10/24/21 04/18/22 Unknown, Traci, PCP - General 04/22/22 05/19/22 Hank Guzman MD [address] [place] [address] [email or web address] PCP - General Internal Medicine 05/20/22 04/30/23 Clementine Freeman MD [address] [place] [address] [email or web address] PCP - General Internal Medicine 05/01/23 Cassie Perez MD [address] [place] [address] [email or web address] Consulting Provider Geriatric Medicine 11/09/21 Hank Guzman MD [address] [place] [address] [email or web address] Insurance Assigned Provider 09/20/23 09/19/24 Cassie Perez MD [address] [place] [address] [email or web address] Geriatric Medicine 04/19/24 Hank Guzman MD 40 [place] [address] Insurance Assigned Provider 09/20/23 10/23/24 Hank Guzman MD 40 [place] [address] Insurance Assigned Provider 09/20/23 11/20/24 Hank Guzman MD 40 [place] [address] Insurance Assigned Provider 09/20/23 12/25/24 Hank Guzman MD 40 [place] [address] Insurance Assigned Provider 09/20/23 01/22/25 Hank Guzman MD 40 [place] [address] Insurance Assigned Provider 09/20/23 02/19/25 documented as of this encounter Additional Source Comments The information contained in this document represents components of the legal health record. It is not the complete legal health record.[facility]
--- OUTSIDE RECORDS SUMMARY | 2025-03-02 17:26 | XMS_ITS | Encounter Summary ---
Author Organization [facility] Address [address] [address] Phone Care Team Providers Care Linter Drier Operator Name Role Phone Cassie Perez MD Unavailable Hank Guzman MD Primary Care Provider Hank Guzman MD Unavailable Clementine Freeman MD Primary Care Provider Cassie Perez MD Unavailable [phone] Hank Guzman MD Unavailable Hank Guzman MD Unavailable Hank Guzman MD Unavailable Hank Guzman MD Unavailable Hank Guzman MD Unavailable Encounter Details Date Type Department Care Team (Late st Contact Info) Description 04/24/2023 Transcribe Orders Virtual Department [address] [place] [address] Clementine Freeman MD [address] [place] [address] [id number] [email or web address] Cardiac murmur, unspecified Social [...] high school, GED, job training, learning the [place] language, technical skills, or developing parenting skills)? [...] documented as of this encounter Care Teams Linter Drier Operator Relationship Specialty Start Date End Date Hank Guzman MD [address] [place] [address] PCP - General Internal Medicine 05/20/22 04/30/23 Clementine Freeman MD [address] [place] [address] [email or web address] PCP - General Internal Medicine 05/01/23 Cassie Perez MD Consulting Provider Geriatric Medicine 11/09/21 Hank Guzman MD 40 [place] [address] Insurance Assigned Provider 09/20/23 09/19/24 Cassie Perez MD Geriatric Medicine 04/19/24 Hank Guzman MD 40 [place] [address] Insurance Assigned Provider 09/20/23 10/23/24 Hank Guzman MD [address] [place] [address] [email or web address] Insurance Assigned Provider 09/20/23 11/20/24 Hank Guzman MD [address] [place] [address] [email or web address] Insurance Assigned Provider 09/20/23 12/25/24 Hank Guzman MD [address] [place] [address] [email or web address] Insurance Assigned Provider 09/20/23 01/22/25 Hank Guzman MD [address] [place] [address] [email or web address] Insurance Assigned Provider 09/20/23 02/19/25 documented as of this encounter Additional Source Comments The information contained in this document represents components of the legal health record. It is not the complete legal health record.[facility]
--- OUTSIDE RECORDS SUMMARY | 2025-03-02 17:26 | XMS_ITS | Encounter Summary ---
Author Organization [facility] Address [address] [address] Phone Care Team Providers Care Early Head Start Director Name Role Phone Cassie Perez MD Unavailable Hank Guzman MD Unavailable Clementine Freeman MD Primary Care Provider [phone] Cassie Perez MD Unavailable Hank Guzman MD Unavailable Hank Guzman MD Unavailable Hank Guzman MD Unavailable Hank Guzman MD Unavailable Hank Guzman MD Unavailable Encounter Details Date Type Department Care Team (Late st Contact Info) Description 11/21/2023 Transcribe Orders Virtual Department [address] [place] [address] Clmeentine Freeman MD [address] [place] [address] [email or web address] Pneumonia due to infectious organism, unspecified laterality, [...] documented as of this encounter Care Teams Early Head Start Director Relationship Specialty Start Date End Date Clementine Freeman MD [address] [place] [address] [email or web address] PCP - General Internal Medicine 05/01/23 Cassie Perez MD [email or web address] Consulting Provider Geriatric Medicine 11/09/21 Hank Guzman MD [address] [place] [phone] Insurance Assigned Provider 09/20/23 09/19/24 Cassie Perez MD Geriatric Medicine 04/19/24 Hank Guzman MD [address] [place] [address] [email or web address] Insurance Assigned Provider 09/20/23 10/23/24 Hank Guzman MD [address] [place] [address] [email or web address] Insurance Assigned Provider 09/20/23 11/20/24 Hank Guzman MD [address] [place] [address] [email or web address] Insurance Assigned Provider 09/20/23 12/25/24 Hank Guzman MD [address] [place] [address] Insurance Assigned Provider 09/20/23 01/22/25 Hank Guzman MD [address] [place] [address] [email or web address] Insurance Assigned Provider 09/20/23 02/19/25 documented as of this encounter Additional Source Comments The information contained in this document represents components of the legal health record. It is not the complete legal health record.[facility]
--- OUTSIDE RECORDS SUMMARY | 2025-03-02 17:26 | XMS_ITS | Encounter Summary ---
Author Organization [facility] Address [address] [address] Phone Care Team Providers Care Tile Mechanic Name Role Phone Cassie Perez MD Unavailable [phone] Clementine Freeman MD Primary Care Provider [phone] Cassie Perez MD Unavailable [phone] Hank Guzman MD Unavailable Hank Guzman MD Unavailable Hank Guzman MD Unavailable Hank Guzman MD Unavailable SoHank lomax MD Unavailable Encounter Details Date Type Department Care Team (Late st Contact Info) Description 10/14/2024 Ancillary Orders [facility], X-Ray - [place] [address] [place] [address] Apoorva Aquino PA [address] [place] [address] [email or web address] Pain (Primary Dx) Social History [...] documented as of this encounter Care Teams Tile Mechanic Relationship Specialty Start Date End Date Clementine Freeman MD [address] [place] [address] [email or web address] PCP - General Internal Medicine 05/01/23 Cassie Perez MD [email or web address] Consulting Provider Geriatric Medicine 11/09/21 Cassie Perez MD [email or web address] Medicine 04/19/24 Hank Guzman MD [address] [place] [address] Insurance Assigned Provider 09/20/23 10/23/24 Hank Guzman MD [address] [place] [address] Insurance Assigned Provider 09/20/23 11/20/24 Hank Guzman MD [address] [place] [address] Insurance Assigned Provider 09/20/23 12/25/24 Hank Guzman MD [address] [place] [address] [email or web address] Insurance Assigned Provider 09/20/23 01/22/25 Hank Guzman MD [address] [place] [address] [email or web address] Insurance Assigned Provider 09/20/23 02/19/25 documented as of this encounter Additional Source Comments The information contained in this document represents components of the legal health record. It is not the complete legal health record.[facility]
--- OUTSIDE RECORDS SUMMARY | 2025-03-02 17:26 | XMS_ITS | Encounter Summary ---
Author Organization [facility] Address [address] [place] [address] Phone Care Team Providers Care Mural Artist Name Role Phone Jannette Ramirez MD Primary Care Provider [phone] Kiki Norman MD Primary Care Provid er Cassie Perez MD Unavailable [phone] Unknown, Unknown Primary Care Provider Hank Anne MD Primary Care Provider Hank Guzman MD Unavailable Clementine Freeman MD Primary Care Provider [phone] Cassie Perez MD Unavailable [phone] Hank Guzman MD Unavailable Hank Guzman MD Unavailable Hank Guzman MD Unavailable Hank Guzman MD Unavailable Hank Guzman MD Unavailable Encounter Details Date Type Department Care Team (Late st Contact Info) Description 07/14/2020 Procedure Pass [place] Admitting Dept - Virtual Department [address] [place] [address] Social History Tobacco Use Types Packs/Day [...] documented as of this encounter Care Teams Mural Artist Relationship Specialty Start Date End Date Jannette Ramirez MD [email or web address] PCP - General Internal Medicine 05/05/20 10/23/21 Kiki Norman MD [address] [place] [address] [email or web address] PCP - General Family Medicine 10/24/21 04/18/22 Unknown, Unknown, MD PCP - General 04/22/22 05/19/22 Hank Guzman MD [address] [place] [address] [email or web address] PCP - General Internal Medicine 05/20/22 04/30/23 Clementine Freeman MD [address] [place] [address] [email or web address] PCP - General Internal Medicine 05/01/23 Cassie Perez MD [address] [place] [address] [email or web address] Consulting Provider Geriatric Medicine 11/09/21 Hank Guzman MD [address] [place] [address] [place] [address] Insurance Assigned Provider 09/20/23 09/19/24 Cassie Perez MD [address] [place] [address] [email or web address] Geriatric Medicine 04/19/24 Hank Guzman MD [address] [place] [address] Insurance Assigned Provider 09/20/23 10/23/24 Hank Guzman MD [address] [place] [address] Insurance Assigned Provider 09/20/23 11/20/24 Hank Guzman MD [address] [place] [address] Insurance Assigned Provider 09/20/23 12/25/24 Hank Guzman MD [address] [place] [address] Insurance Assigned Provider 09/20/23 01/22/25 Hank Guzman MD [address] [place] [address] Insurance Assigned Provider 09/20/23 02/19/25 documented as of this encounter Additional Source Comments The information contained in this document represents components of the legal health record. It is not the complete legal health record.[facility]
--- OUTSIDE RECORDS SUMMARY | 2025-03-02 17:26 | XMS_ITS | Encounter Summary ---
Author Organization [facility] Address [address] [address] Phone Care Team Providers Care Weld Engineer Name Role Phone Jannette Ramirez MD Primary Care Provider [phone] Kiki Norman MD Primary Care Provid er Cassie Perez MD Unavailable [phone] Unknown, Unknown Primary Care Provider Hank Anne MD Primary Care Provider Hank Guzman MD Unavailable Clementine Freeman MD Primary Care Provider [phone] Cassie Perez MD Unavailable [phone] Hank Guzman MD Unavailable Hank Guzman MD Unavailable Hank Guzman MD Unavailable Hank Guzman MD Unavailable Hank Guzman MD Unavailable Reason for Referral * MRI/CAT Scan - Closed Specialty Diagnoses / Procedures Referred By Jess benedict Referred To Contact Radiology Diagnoses Mild cognitive impairment, so stated Procedures CT Head Jannette Ramirez MD Phone: tel: fax: [email or web address] Referral ID Status Reason Start Date Expiration Date Visits Re quested Visits Authorized [id number] Closed 08/07/2020 08/07/2021 1 1 Encounter Details Date Type Department Care Team (Latest Contact Info) Description 08/07/2020 Transcribe Orders Virtual Department [address] [place] [address] Jannette Ramirez MD [address] [place] [phone] [email or web address] Mild cognitive impairment, so stated (Primary Dx) [...] documented as of this encounter Care Teams Weld Engineer Relationship Specialty Start Date End Date Jannette Ramirez MD [email or web address] PCP - General Internal Medicine 05/05/20 10/23/21 Kiki Norman MD [address] [address] [email or web address] PCP - General Family Medicine 10/24/21 04/18/22 Unknown, Traci, PCP - General 04/22/22 05/19/22 Hank Gzuman MD [address] [place] [address] [email or web address] PCP - General Internal Medicine 05/20/22 04/30/23 Clementine Freeman MD [address] [place] [address] [email or web address] PCP - General Internal Medicine 05/01/23 Cassie Perez MD [address] [place] [address] [email or web address] Consulting Provider Geriatric Medicine 11/09/21 Hank Guzman MD [address] [place] [address] [email or web address] Insurance Assigned Provider 09/20/23 09/19/24 Cassie Perez MD [address] [place] [address] Geriatric Medicine 04/19/24 Hank Guzman MD [address] [place] [address] Insurance Assigned Provider 09/20/23 10/23/24 Hank Guzman MD [address] [place] [address] Insurance Assigned Provider 09/20/23 11/20/24 Hank Guzman MD [address] [place] [address] Insurance Assigned Provider 09/20/23 12/25/24 Hank Guzman MD [address] [place] [address] Insurance Assigned Provider 09/20/23 01/22/25 Hank Guzman MD [address] [place] [address] Insurance Assigned Provider 09/20/23 02/19/25 documented as of this encounter Additional Source Comments The information contained in this document represents components of the legal health record. It is not the complete legal health record.[facility]
--- OUTSIDE RECORDS SUMMARY | 2025-03-02 17:26 | XMS_ITS | Encounter Summary ---
Author Organization [facility] Address [address] [facility] [address] [place] [address] Phone Care Team Providers Care Dog Barber Name Role Phone Jannette Ramirez MD Primary Care Provider [phone] Kiki Norman MD Primary Care Provid er Cassie Perez MD Unavailable [phone] Unknown, Unknown Primary Care Provider Hank Anne MD Primary Care Provider Hank Guzman MD Unavailable Clementine Freeman MD Primary Care Provider [phone] Cassie Perez MD Unavailable [phone] Hank Guzman MD Unavailable Hank Guzman MD Unavailable Hank Guzman MD Unavailable Hank Guzman MD Unavailable Hank Guzman MD Unavailable Encounter Details Date Type Department Care Team (Late st Contact Info) Description 11/20/2020 Procedure Pass [facility], Ct Scan - [address] [address] Social History Tobacco Use Types Packs/Day Years [...] documented as of this encounter Care Teams Dog Barber Relationship Specialty Start Date End Date Jannette Ramirez MD [email or web address] PCP - General Internal Medicine 05/05/20 10/23/21 Kiki Norman MD [address] [place] [address] [email or web address] PCP - General Family Medicine 10/24/21 04/18/22 Unknown, Traci, MD PCP - General 04/22/22 05/19/22 Hank Gzuman MD [address] [place] [address] [email or web address] PCP - General Internal Medicine 05/20/22 04/30/23 Clementine Freeman MD [address] [place] [email or web address] PCP - General Internal Medicine 05/01/23 Cassie Perez MD [address] [place] [address] [email or web address] Consulting Provider Geriatric Medicine 11/09/21 Hank Guzman MD [address] [place] [address] Insurance Assigned Provider 09/20/23 09/19/24 Cassie Perez MD [address] [place] [address] [email or web address] Geriatric Medicine 04/19/24 Hank Guzman MD [address] [place] [address] Insurance Assigned Provider 09/20/23 10/23/24 Hank Guzman MD [address] [place] [address] Insurance Assigned Provider 09/20/23 11/20/24 Hank Guzman MD [address] [place] [address] Insurance Assigned Provider 09/20/23 12/25/24 Hank Guzman MD [address] [place] [address] Insurance Assigned Provider 09/20/23 01/22/25 Hank Guzman MD [address] [place] [address] Insurance Assigned Provider 09/20/23 02/19/25 documented as of this encounter Additional Source Comments The information contained in this document represents components of the legal health record. It is not the complete legal health record.[facility]
--- OUTSIDE RECORDS SUMMARY | 2025-03-02 17:26 | XMS_ITS | Encounter Summary ---
Author Organization [facility] Address [address] [address] Phone Care Team Providers Care Product Safety Test Engineer Name Role Phone Cassie Perez MD Unavailable Hank Guzman MD Primary Care Provider Hank Guzman MD Unavailable Clementine Freeman MD Primary Care Provider [phone] Cassie Perez MD Unavailable Hank Guzman MD Unavailable Hank Guzman MD Unavailable Hank Guzman MD Unavailable Hank Guzman MD Unavailable Hank Guzman MD Unavailable Encounter Details Date Type Department Care Team (Late st Contact Info) Description 02/25/2023 Procedure Pass [facility], [address] [address] Social History Tobacco Use Types Packs/Day Years [...] high school, GED, job training, learning the British language, technical skills, or developing parenting skills)? [...] as of this encounter Care Teams Product Safety Test Engineer Relationship Specialty Start Date End Date Hank Guzman MD [address] [place] [address] PCP - General Internal Medicine 05/20/22 04/30/23 Clementine Freeman MD [address] [place] [address] [email or web address] PCP - General Internal Medicine 05/01/23 Cassie Perez MD Consulting Provider Geriatric Medicine 11/09/21 Hank Guzman MD [address] [place] [address] Insurance Assigned Provider 09/20/23 09/19/24 Cassie Perez MD Geriatric Medicine 04/19/24 Hank Guzman MD [address] [place] [address] Insurance Assigned Provider 09/20/23 10/23/24 Hank Guzman MD [address] [place] [address] Insurance Assigned Provider 09/20/23 11/20/24 Hank Guzman MD [address] [place] [address] [email or web address] Insurance Assigned Provider 09/20/23 12/25/24 Hank Guzman MD [address] [place] [address] Insurance Assigned Provider 09/20/23 01/22/25 Hank Guzman MD [address] [place] [address] Insurance Assigned Provider 09/20/23 02/19/25 documented as of this encounter Additional Source Comments The information contained in this document represents components of the legal health record. It is not the complete legal health record.[facility]
--- OUTSIDE RECORDS SUMMARY | 2025-03-02 17:26 | XMS_ITS | Encounter Summary ---
Author Organization [facility] Address [address] [facility] [address] [place] [address] Phone Care Team Providers Care Manager Business Management Name Role Phone Jannette Ramirez MD Primary Care Provider [phone] Kiki Norman MD Primary Care Provid er Cassie Perez MD Unavailable Unknown, Unknown Primary Care Provider Hank Anne MD Primary Care Provider Hank Guzman MD Unavailable Clementine Freeman MD Primary Care Provider [phone] Cassie Perez MD Unavailable Hank Guzman MD Unavailable Hank Guzman MD Unavailable Hank Guzman MD Unavailable Hank Guzman MD Unavailable Hank Guzman MD Unavailable Encounter Details Date Type Department Care Team (Latest Contact Info) Description 08/22/2020 Transcribe Orders [facility] [address] [place] [address] Jannette Ramirez MD [address] [place] [phone] [email or web address] Essential hypertension, benign (Primary Dx); Hyperlipidemia, [...] EST) WBC 5.04 4.00 - 11.00 K/uL [facility] RBC 4.49 3.90 - 5.69 M/uL [facility] HGB 14.1 12.4 - 17.3 g/dL [facility] HCT 42.6 37.0 - 51.0 % [facility] PLT 232 140 - 430 K/uL [facility] MCV 94.9 78.0 - 97.0 fL [facility] MCH 31.4 25.0 - 33.0 pg [facility] MCHC 33.1 32.0 - 36.0 g/dL [facility] RDW 13.1 11.0 - 15.0 % [facility] MPV 9.0 8.4 - 12.8 fl [facility] NRBC 0.00 0 /100 WBCs [facility] ABSOLUTE NRBC 0.00 0 K/uL [facility] DIFF METHOD Auto [facility] NEUTS 57.0 43.0 - 75.0 % [facility] LYMPHS 31.7 18.2 - 47.4 % [facility] MONOS 7.3 4.00 - 11.00 % [facility] EOS 3.0 0.0 - 8.0 % [facility] BASOS 0.6 0.0 - 2.0 % [facility] Granulocytes, immature (%) 0.4 0.0 - 0.9 % [facility] ABSOLUTE NEUTS 2.87 1.80 - 7.70 K/uL [facility] ABSOLUTE LYMPHS 1.60 1.00 - 3.10 K/uL [facility] ABSOLUTE MONOS 0.37 0.20 - 0.80 K/uL [facility] ABSOLUTE EOS 0.15 0.00 - 0.80 K/uL [facility] ABSOLUTE BASOS 0.03 0.00 - 0.09 K/uL [facility] Granulocytes, immature 0.02 0.00 - 0.05 K/uL [facility] Blood 08/22/2020 10:1 6 AM EST 08/22/2020 10:20 AM EST us Jannette Ramirez MD LAB BLOOD ORDERABLES Final Result Performing Organization Address City/[facility]/ZIP Co de Phone Number [address] [address] * Sedimentation rate (ESR) (08/22/2020 10:16 AM EST) ESR 8 0 - 20 mm/h [facility] Blood 08/22/2020 10:1 6 AM EST 08/22/2020 10:20 AM EST us Jannette Ramirez MD LAB BLOOD ORDERABLES Final Result Performing Organization Address [facility] Co de Phone Number [address] [address] * C-Reactive Protein (08/22/2020 10:16 AM EST) C REACTIVE PROTEIN <3.0 0.0 - 4.0 mg/L [facility] Blood 08/22/2020 10:1 6 AM EST 08/22/2020 10:20 AM EST us Jannette Ramirez MD LAB BLOOD ORDERABLES Final Result Performing Organization Address [facility] Co de Phone Number [address] [address] * LFTs (hepatic panel) (08/22/2020 10:16 AM EST) ALKALINE PHOSPHATASE 103 39 - 117 U/L [facility] TOTAL BILIRUBIN 0.9 0.0 - 1.2 mg/dL [facility] DIRECT BILIRUBIN <0.2 0 - 0.3 mg/dL [facility] Bilirubin (Indirect) NOT CALCULATED 0 - 1.5 mg/dL [facility] AST 20 0 - 37 U/L [facility] ALT 11 0 - 40 U/L [facility] TOTAL PROTEIN 7.2 6.5 - 8.0 g/dL [facility] ALBUMIN 4.1 3.9 - 4.8 g/dL [facility] GLOBULIN 3.1 1 - 4.8 g/dL [facility] A/G Ratio 1.32 1.00 - 4.80 RATIO [facility] Blood 08/22/2020 10:1 6 AM EST 08/22/2020 10:20 AM EST us Jannette Ramirez MD LAB BLOOD ORDERABLES Final Result Performing Organization Address City/State/[facility] Co de Phone Number [address] [address] * Lipid panel (08/22/2020 10:16 AM EST) Pathologist [facility] HDL 48 mg/dL [facility] Comment: Interpretation <40 mg/dL: Low HDL cholesterol (major risk factor for CHD) Greater than or equal to 60 mg/dL: High HDL cholesterol ( negative risk factor for CHD) HDL - cholesterol is affected by a number of factors, e.g. smoking, excerise, hormones, sex and age. CHOLESTEROL 165 0 - 240 mg/dL [facility] TRIGLYCERIDES 80 30 - 160 mg/dL [facility] LDL 101 50 - 129 mg/dL [facility] Comment: LDL levels in terms of risk for coronary heart disease: <100 mg/dL: Optimal 100-129 mg/dL: Near or above optimal 130-159 mg/dL: Borderline high 160-189 mg/dL: High >190 mg/dL: Very High CARDIAC RISK RATIO 3.4 3.4 - 5.0 C [facility] Blood 08/22/2020 10:1 6 AM EST 08/22/2020 10:20 AM EST us Jannette Ramirez MD LAB BLOOD ORDERABLES Final Result Performing Organization Address City/[facility]/ZIP Co de Phone Number [address] [address] * Hemoglobin A1c (08/22/2020 10:16 AM EST) HEMOGLOBIN A1C 5.3 4.3 - 5.8 % [facility] Blood 08/22/2020 10:1 6 AM EST 08/22/2020 10:20 AM EST us Jannette Ramirez MD LAB BLOOD ORDERABLES Final Result Performing Organization Address [facility] Co de Phone Number [address] [address] * (ABNORMAL) Basic metabolic panel (08/22/2020 10:16 AM EST) SODIUM 138 133 - 146 mmol/L [facility] CHLORIDE 104 96 - 108 mmol/L [facility] POTASSIUM 4.5 3.3 - 5.1 mmol/L [facility] CO2 27 21 - 35 mmol/L [facility] BUN 20(H) 6 - 19 mg/dL [facility] CREATININE 0.90 0.5 - 1.5 mg/dL [facility] GLUCOSE 88 70 - 99 mg/dL [facility] CALCIUM 9.4 8.4 - 10.3 mg/dL [facility] EGFR 79 >59 mL/min/1.7 3m2 [facility] Comment:Estimated glomerular filtration rate calculated using the CKD-EPI equation. ANION GAP 12 10 - 20 mmol/L [facility] Blood 08/22/2020 10:1 6 AM EST 08/22/2020 10:20 AM EST us Jannette Ramirez MD LAB BLOOD ORDERABLES Final Result Performing Organization Address City/[facility]/ZIP Co de Phone Number [address] [address] documented in this encounter Visit Diagnoses Diagnosis Essential hypertension, benign- Primary Hyperlipidemia, unspecified hyperlipidemia type Loss of weight documented in this encounter Additional Health Concerns Infection Onset Date Last Indicated Resolved Time CoV-Risk 05/20/2022 05/20/2022 05/31/2022 1:23 AM EST documented as of this encounter Care Teams Manager Business Management Relationship Specialty Start Date End Date Jannette Ramirez MD [email or web address] PCP - General Internal Medicine 05/05/20 10/23/21 Kiki Norman MD [address] [place] [address] [email or web address] PCP - General Family Medicine 10/24/21 04/18/22 Unknown, Traci, PCP - General 04/22/22 05/19/22 Hank Guzman MD [address] [place] [address] [email or web address] PCP - General Internal Medicine 05/20/22 04/30/23 Clementine Freeman MD [address] [place] [address] [email or web address] PCP - General Internal Medicine 05/01/23 Cassie Perez MD [address] [place] [address] [email or web address] Consulting Provider Geriatric Medicine 11/09/21 Hank Guzman MD [address] [place] [address] [email or web address] Insurance Assigned Provider 09/20/23 09/19/24 Cassie Perez MD [address] [place] [address] [email or web address] Geriatric Medicine 04/19/24 Hank Guzman MD [address] [place] [address] Insurance Assigned Provider 09/20/23 10/23/24 Hank Guzman MD [address] [place] [address] Insurance Assigned Provider 09/20/23 11/20/24 Hank Guzman MD [address] [place] [address] Insurance Assigned Provider 09/20/23 12/25/24 Hank Guzmna MD [address] [place] [address] Insurance Assigned Provider 09/20/23 01/22/25 Hank Guzman MD [address] [place] [address] Insurance Assigned Provider 09/20/23 02/19/25 documented as of this encounter Additional Source Comments The information contained in this document represents components of the legal health record. It is not the complete legal health record.[facility]
--- OUTSIDE RECORDS SUMMARY | 2025-03-02 17:27 | XMS_ITS | Encounter Summary ---
Author Organization [facility] Address [address] [address] Phone Care Team Providers Care Bench Hand Name Role Phone Cassie Perez MD Unavailable [phone] Clementine Freeman MD Primary Care Provider [phone] Cassie Perez MD Unavailable [phone] Hank Guzman MD Unavailable Hank Guzman MD Unavailable Hank Guzman MD Unavailable Hank Guzman MD Unavailable Hank Guzman MD Unavailable Encounter Details Date Type Department Care Team (Late st Contact Info) Description 10/15/2024 Procedure Pass [facility], Ct Scan - [address] [address] Social History Tobacco Use Types Packs/Day Years [...] documented as of this encounter Care Teams Bench Hand Relationship Specialty Start Date End Date Clementine Freeman MD [address] [place] [address] [email or web address] PCP - General Internal Medicine 05/01/23 Cassie Perez MD [email or web address] Consulting Provider Geriatric Medicine 11/09/21 Cassie Perez MD [email or web address] Geriatric Medicine 04/19/24 Hank Guzman MD [address] [place] [address] [email or web address] Insurance Assigned Provider 09/20/23 10/23/24 Hank Guzman MD [address] [place] [address] [email or web address] Insurance Assigned Provider 09/20/23 11/20/24 Hank Guzman MD [address] [place] [address] [email or web address] Insurance Assigned Provider 09/20/23 12/25/24 Hank Guzman MD [address] [place] [address] [email or web address] Insurance Assigned Provider 09/20/23 01/22/25 Hank Guzman MD [address] [place] [address] [email or web address] Insurance Assigned Provider 09/20/23 02/19/25 documented as of this encounter Additional Source Comments The information contained in this document represents components of the legal health record. It is not the complete legal health record.[facility]
--- OUTSIDE RECORDS SUMMARY | 2025-03-02 17:27 | XMS_ITS | Encounter Summary ---
Author Organization [facility] Address [address] [address] Phone Care Team Providers Care Sap Bobj Developer Name Role Phone Cassie Perez MD Unavailable [phone] Clementine Freeman MD Primary Care Provider [phone] Cassie Perez MD Unavailable [phone] Hank Guzman MD Unavailable SoHank lomax MD Unavailable SoHank lomax MD Unavailable SoHank lomax MD Unavailable Hank Guzman MD Unavailable Reason for Referral * MRI/CAT Scan - Closed Specialty Diagnoses / Procedures Referred By Contac t Referred To Contact Radiology Diagnoses LLQ abdominal mass Weight loss Procedures CT Abdomen/Pelvis Apoorva Aquino PA [address] [place] [address] Phone: tel: fax: [email or web address] Referral ID Status Reason Start Date Expiration Date Visits Re quested Visits Authorized [id number] Closed 10/15/2024 10/15/2025 1 1 * MRI/CAT Scan - Closed Specialty Diagnoses / Procedures Referred By Contac t Referred To Contact Radiology Diagnoses LLQ abdominal mass Weight loss Procedures CT Chest Apoorva Aquino PA [address] [place] [address] Phone: tel: fax: mailto:[email or web address] Referral ID Status Reason Start Date Expiration Date Visits Re quested Visits Authorized [id number] Closed 10/15/2024 10/15/2025 1 1 Encounter Details Date Type Department Care Team (Latest Contact Info) Description 10/15/2024 Transcribe Orders Virtual Department [address] [place] [address] Apoorva Aquino PA [address] [place] [address] [email or web address] LLQ abdominal mass (Primary Dx); Weight loss [...] CONTRAST (10/24/2024 1:10 PM EDT) B IMG CONSUMER SERVICES ADVISOR COMMENT Large left lower quadrant mass is new from November 2020. [employer] Anatomical Region Laterality Modality Abdomen, Pelvis Computed [...] initiated on 10/28/2024 9:00 PM, Message ID [id number]. Narrative 10/29/2024 6:[address] ABDOMEN/PELVIS [...] was initiated on 10/28/2024 9:00 PM,Message ID [id number]. Apoorvajeremías Aquino [place] [facility]G CT ABD/PELVIS Final Result * CT CHEST WITH CONTRAST (10/24/2024 1:10 PM EDT) MGB IMG CONSUMER SERVICES ADVISOR COMMENT Complete obstruction of the right middle lobe bronchus, airway secretions versus an endobronchial lesion. Short interval follow-up chest CT. Consider bronchoscopy if clinically warranted. [facility] Anatomical Region Laterality Modality Chest Computed Tomogra [...] initiated on 10/28/2024 2:37 PM, Message ID [id number]. Narrative 10/28/2024 2:[address] CHEST [...] was initiated on 10/28/2024 2:37 PM,Message ID [id number]. Apoorva [facility] CHEST Final Result documented in this [...] documented as of this encounter Care Teams Sap Bobj Developer Relationship Specialty Start Date End Date Clementine Freeman MD [address] [place] [address] [email or web address] PCP - General Internal Medicine 05/01/23 Cassie Perez MD Consulting Provider Geriatric Medicine 11/09/21 Cassie Perez MD Geriatric Medicine 04/19/24 Hank Guzman MD [address] [place] [address] Insurance Assigned Provider 09/20/23 10/23/24 Hank Guzman MD [address] [place] [address] Insurance Assigned Provider 09/20/23 11/20/24 Hank Guzman MD [address] [place] [address] Insurance Assigned Provider 09/20/23 12/25/24 Hank Guzman MD [address] [place] [address] Insurance Assigned Provider 09/20/23 01/22/25 Hank Guzman MD [address] [place] [address] Insurance Assigned Provider 09/20/23 02/19/25 documented as of this encounter Additional Source Comments The information contained in this document represents components of the legal health record. It is not the complete legal health record.[facility]
--- OUTSIDE RECORDS SUMMARY | 2025-03-02 17:27 | XMS_ITS | Encounter Summary ---
Author Organization [facility] Address [address] [facility] [address] [place] [address] Phone Care Team Providers Care Scheduling Agent Name Role Phone Laura Botello MD Primary Care Provi hilda Jannette Ramirez MD Primary Care Provider Kiki Norman MD Primary Care Provid er Cassie Perez MD Unavailable Unknown, Unknown Primary Care Provider Hank Anne MD Primary Care Provider [phone] Hank Guzman MD Unavailable Clementine Freeman MD Primary Care Provider Cassie Perez MD Unavailable [phone] Hank Guzman MD Unavailable Hank Guzman MD Unavailable Hank Guzman MD Unavailable Hank Guzman MD Unavailable Hank Guzman MD Unavailable Encounter Details Date Type Department Care Team (Late st Contact Info) Description 04/17/2020 Procedure Pass [facility], Ct Scan - [address] [address] Social History Tobacco Use Types Packs/Day Years [...] documented as of this encounter Care Teams Scheduling Agent Relationship Specialty Start Date End Date Laura Botello MD [email or web address] PCP - General Internal Medicine 01/18/20 05/04/20 Jannette Ramirez MD [email or web address] PCP - General Internal Medicine 05/05/20 10/23/21 Kiki Norman MD [address] [place] [address] [email or web address] PCP - General Family Medicine 10/24/21 04/18/22 Unknown, Traci, PCP - General 04/22/22 05/19/22 Hank Guzman MD [address] [place] [address] [email or web address] PCP - General Internal Medicine 05/20/22 04/30/23 Clementine Freeman MD [address] [place] [address] [email or web address] PCP - General Internal Medicine 05/01/23 Cassie Perez MD [address] [address] [email or web address] Consulting Provider Geriatric Medicine 11/09/21 Hank Guzman MD [address] [place] [address] [email or web address] Insurance Assigned Provider 09/20/23 09/19/24 Cassie Perez MD [address] [address] [email or web address] Geriatric Medicine 04/19/24 Hank Guzman MD [address] [place] [address] [email or web address] Insurance Assigned Provider 09/20/23 10/23/24 Hank Guzman MD [address] [place] [address] [email or web address] Insurance Assigned Provider 09/20/23 11/20/24 Hank Guzman MD [address] [place] [address] Insurance Assigned Provider 09/20/23 12/25/24 Hank Guzman MD [address] [place] [address] Insurance Assigned Provider 09/20/23 01/22/25 Hank Guzman MD [address] [place] [address] [email or web address] Insurance Assigned Provider 09/20/23 02/19/25 documented as of this encounter Additional Source Comments The information contained in this document represents components of the legal health record. It is not the complete legal health record.[facility]
--- OUTSIDE RECORDS SUMMARY | 2025-03-02 17:27 | XMS_ITS | Encounter Summary ---
Author Organization [facility] Address [address] [address] Phone Care Team Providers Care Pals Nurse Name Role Phone Cassie Perez MD Unavailable [phone] Clementine Freeman MD Primary Care Provider [phone] Cassie Perez MD Unavailable [phone] Hank Guzman MD Unavailable Hank Guzman MD Unavailable Hank Guzman MD Unavailable Hank Guzman MD Unavailable Hank Guzman MD Unavailable Encounter Details Date Type Department Care Team (Late st Contact Info) Description 10/15/2024 Procedure Pass [facility], Ct Scan - [address] [address] Social History Tobacco Use Types Packs/Day Years [...] documented as of this encounter Care Teams Pals Nurse Relationship Specialty Start Date End Date Clementine Freeman MD [address] [place] [phone] [email or web address] PCP - General Internal Medicine 05/01/23 Cassie Perez MD [email or web address] Consulting Provider Geriatric Medicine 11/09/21 Cassie Perez MD [email or web address] Geriatric Medicine 04/19/24 Hank Guzman MD [address] [place] [phone] [email or web address] Insurance Assigned Provider 09/20/23 10/23/24 Hank Guzman MD [address] [place] [phone] [email or web address] Insurance Assigned Provider 09/20/23 11/20/24 Hank Guzman MD [address] [place] [phone] [email or web address] Insurance Assigned Provider 09/20/23 12/25/24 Hank Guzman MD [address] [place] [phone] [email or web address] Insurance Assigned Provider 09/20/23 01/22/25 Hank Guzman MD [address] [place] [phone] [email or web address] Insurance Assigned Provider 09/20/23 02/19/25 documented as of this encounter Additional Source Comments The information contained in this document represents components of the legal health record. It is not the complete legal health record.[facility]
--- OUTSIDE RECORDS SUMMARY | 2025-03-02 17:27 | XMS_ITS | Encounter Summary ---
Author Organization [facility] Address [address] [address] Phone Care Team Providers Care Feather Sawyer Name Role Phone Cassie Perez MD Unavailable [phone] Clementine Freeman MD Primary Care Provider Cassie Perez MD Unavailable [phone] Hank Guzman MD Unavailable Hank Guzman MD Unavailable Hank Guzman MD Unavailable Hank Guzman MD Unavailable Hank Guzman MD Unavailable Encounter Details Date Type Department Care Team (Late st Contact Info) Description 10/14/2024 Ancillary Orders [facility], X-Ray - [address] [place] [address] Apoorva Aquino PA [address] [place] [address] [email or web address] AudioName Pain (Primary Dx); Weight loss Social History [...] VIEWS (10/14/2024 3:15 PM EDT) [facility] IMG BRAND EXECUTIVE COMMENT Streaky bilateral linear opacities. Cannot exclude nodular component in the right upper lobe. Question thick bandlike atelectasis or small infiltrates. Recommend follow-up chest x-ray or chest [facility] Anatomical Region Laterality Modality Chest Computed Radiogr [...] initiated on 10/14/2024 3:26 PM, Message ID [id number]. Narrative 10/14/2024 3:33 PM EDT XR CHEST PA AND LATERAL 2 VIEWS Referring clinician's provided indication for this examination in [facility]: Weight Loss COMPARISON: None FINDINGS: Devices/Tubes/Lines: None. [...] clinician's provided indication for this examination in [facility]:Weight Loss COMPARISON: None FINDINGS: Devices/Tubes/Lines: None. Lungs: [...] was initiated on 10/14/2024 3:26 PM, MessageID [id number]. us Apoorva SHULTZ IMG XR CHEST Edited [...] documented as of this encounter Care Teams Feather Sawyer Relationship Specialty Start Date End Date Clementine Freeman MD [address] [place] [phone] PCP - General Internal Medicine 05/01/23 Cassie Perez MD [email or web address] Consulting Provider Geriatric Medicine 11/09/21 Cassie Perez MD Geriatric Medicine 04/19/24 Hank Guzman MD [address] [place] [address] Insurance Assigned Provider 09/20/23 10/23/24 Hank Guzman MD [address] [place] [address] Insurance Assigned Provider 09/20/23 11/20/24 Hank Guzman MD [address] [place] [phone] Insurance Assigned Provider 09/20/23 12/25/24 Hank Guzman MD [address] [place] [address] Insurance Assigned Provider 09/20/23 01/22/25 Hank Guzman MD [address] [place] [phone] Insurance Assigned Provider 09/20/23 02/19/25 documented as of this encounter Additional Source Comments The information contained in this document represents components of the legal health record. It is not the complete legal health record.[facility]
== END 2025-03-02 14:05 | disposition home or self-care (01) ==
LOC: HO.HCS 13:43
PROVIDERS: PCP Internal Medicine; Visit Provider Internal Medicine
DX: I77.810 Thoracic aortic ectasia (principal); I95.1 Orthostatic hypotension; F03.90 Unspecified dementia, unspecified severity, without behavioral disturbance, psychotic disturbance, mood disturbance, and anxiety
CPT/HCPCS: 99214; G2211

== ENCOUNTER → 2025-03-02 13:42 | Outpatient (BNVA) | payer MEDICARE, SELFPAY | PROVIDERS: PCP Internal Medicine; Visit Provider Internal Medicine | DX: I77.810 Thoracic aortic ectasia (principal); I95.1 Orthostatic hypotension; F03.90 Unspecified dementia, unspecified severity, without behavioral disturbance, psychotic disturbance, mood disturbance, and anxiety | CPT/HCPCS: 99212 ==

== ENCOUNTER 2025-03-22 12:13 | Emergency (ER) | payer MEDICARE, SELFPAY ==
--- NOTE | ~2025-03-22 | XR_ITS ---
EXAMINATION: XR CHEST CLINICAL INFORMATION: weakness COMPARISON: 01/16/2024 TECHNIQUE: 2 views of the chest were obtained. FINDINGS: Increasing linear density is noted at the junction of mid third upper third left lung consistent with atelectasis. There is decreasing linear density at the junction of mid third upper third right lung consistent with reexpanding atelectasis and likely improving pneumonia. Vague right basilar density and tenting of the right hemidiaphragm has decreased. There is persistent blunting of the right costophrenic angle. XR/XR chest 2V IMPRESSION: Improving atelectasis/pneumonia with trace right pleural effusion. Electronically signed by: Derrick Christianson MD 03/22/2025 12:54 PM EDT
--- NOTE | ~2025-03-22 | CT_ITS ---
EXAMINATION: CT HEAD WITHOUT CONTRAST CLINICAL INFORMATION: Fall with head strike. COMPARISON: 11/14/2023, 03/09/2024 CT angiogram head. TECHNIQUE: Contiguous axial imaging was performed from the skull base to vertex without intravenous administration of contrast. This CT examination was performed using dose optimization techniques as appropriate, variously including the following: *Automated exposure control *Adjustment of mA and/or kV according to patient size (this includes techniques or standardized protocols for targeted exams where dose is matched to indication/reason for exam; i.e. extremities or head) *Use of iterative reconstruction technique FINDINGS: There is no evidence of intracranial hemorrhage or extra-axial fluid collection. There is no mass effect, or edema. No CT evidence of acute territorial infarct. Sulci and cisterns are diffusely somewhat prominent, with age-related cerebral and cerebellar volume loss. Ventricles are dilated mildly out of proportion to sulcal prominence, a nonspecific finding which most likely represents central volume loss. This is unchanged. No hydrocephalus. No midline shift. Negative hyperdense MCA sign. Negative insular ribbon sign. Patchy periventricular and deep white matter hypoattenuation is consistent with moderate to severe small vessel ischemic changes. Normal pituitary. Atheromatous calcification of the bilateral carotid siphons and V4 segments vertebral arteries bilaterally. Globes and orbital contents image normally. No extracranial soft tissue abnormalities. The paranasal sinuses, mastoid air cells, and tympanic cavities are normally aerated. No suspicious bony abnormalities. There are no acute fractures evident. CT/CT head/brain wo IV con IMPRESSION: 1. No acute intracranial abnormality. No acute fracture evident. 2. Stable parenchymal atrophy and moderate to severe small vessel ischemic changes. Electronically signed by: Richar Chahal MD 03/22/2025 03:30 PM EDT
--- NOTE | ~2025-03-22 | CT_ITS ---
EXAMINATION: CT ABDOMEN PELVIS WITH IV CONTRAST HISTORY: abdominal mass on left side COMPARISON: Comparison is made with the prior examination dated 11/14/2023. TECHNIQUE: CT scan of the abdomen and pelvis was performed following administration of 85 mL Omnipaque 350 using standard departmental protocol. Coronal and sagittal reformatted images were generated and reviewed. Oral contrast material was not administered at the request of the referring physician. This CT exam was performed with one or more of the following dose reduction techniques: automated exposure control, adjustment of the mA and/or kV according to patient size, use of iterative reconstruction technique. DLP: 382 mGy-cm FINDINGS: LOWER CHEST: The visualized lung bases are clear. There is no pleural effusion. CARDIOVASCULATURE: The heart is normal in size. There is no pericardial effusion. LIVER: The liver is normal in size and contour. No liver mass is identified. The hepatic and portal veins are patent. GALLBLADDER / BILE DUCTS: The gallbladder is unremarkable. There is no intra or extrahepatic biliary ductal dilatation. SPLEEN: The spleen is normal in size. No focal splenic lesion is identified. PANCREAS: The pancreas is unremarkable in appearance. ADRENAL GLANDS: Within normal limits. KIDNEYS/RETROPERITONEUM: No renal calculi are identified. There is mild left hydronephrosis, likely secondary to stretching of the ureter around the patient's known left abdominal mass.. There is a 1.6 cm cyst at the upper pole of the right kidney. A smaller cyst is noted at the lower pole of the left kidney. LYMPH NODES: No abdominal or pelvic lymphadenopathy. VASCULATURE: The abdominal aorta demonstrates atherosclerotic calcification, but is normal in caliber. MESENTERY/PERITONEUM: No free fluid. There has been interval enlargement of the previously noted left lower quadrant mass which now measures 11.5 x 8.4 x 10.7 cm (previously 7.6 x 6.3 x 6.9 cm). There is no free intraperitoneal gas. STOMACH: The stomach is collapsed, limiting evaluation. SMALL BOWEL: The small bowel is normal in caliber. COLON: There is diverticulosis of the descending and sigmoid colon, without evidence of diverticulitis. APPENDIX: The appendix is not seen, however no inflammatory changes are seen adjacent to the cecum. URINARY BLADDER/PELVIC ORGANS: The urinary bladder is unremarkable. The patient is status post prostatectomy. BONES: The bones are intact. CT/CT abdomen pelvis w IV con IMPRESSION: Interval enlargement of the previously noted left lower quadrant mass as described. This is amenable to imaging guided biopsy if desired. Electronically signed by: Santiago Appiah MD 03/22/2025 03:27 PM EDT
[2025-03-22 12:20] VITALS: BP 134/74; BP 157/83; PULSE 61; PULSE 64; RESP 16; TEMP 36.4; O2SAT 95; BMI 21.0
--- NOTE | 2025-03-22 12:25 | ECG_ITS ---
Test Reason : WEAKNESS Blood Pressure : */* mmHG Vent. Rate : 64 BPM Atrial Rate : 64 BPM P-R Int : 208 ms QRS Dur : 136 ms QT Int : 458 ms P-R-T Axes : 49 -41 42 degrees QTcB Int : 472 ms Normal sinus rhythm Left axis deviation Right bundle branch block Abnormal ECG When compared with ECG of 14-Jan-2025 12:09, No significant change was found Referred By: Mary Edmonds Electronically Signed By: MARION CLEMENTS MD
--- NOTE | 2025-03-22 12:29 | ED_ITS ---
HPI - General Adult General Chief complaint: Weakness Stated complaint: WEAK PER EMS Source: patient Mode of arrival: ambulatory Limitations: no limitations History of Present Illness ED Provider: Dr. Edmonds [facility] narrative: 89-year-old male history of dementia, pneumonia fall syncope hypertension thoracic aortic aneurysm presented hospital today for increased weakness. Patient is not complaining of any chest pain or shortness of breath. Denies any headache or neck pain. Denies any pain in his abdomen denies any nausea or vomiting. Was noted that patient's is from [place] facility. He slid out of bed. Facility is worried about increased weakness for the patient. The patient is not complaining of any fever cough shortness of breath. He states he is unsure why he is in the hospital at this time. Related Data Home Medications ?Medication ?Instructions ?Recorded ?Confirmed levothyroxine 25 mcg tablet 25 mcg PO DAILY 12/22/23 0 03/02/25 donepezil 5 mg tablet 5 mg PO DAILY 03/02/2503/02 Previous Rx's ?Medication ?Instructions ?Recorded harry.stocking,knee,reg,smal #2 ea 11/16/23 (T.E.D. Knee Slhozs-B-Ujysjbz misc) Allergies Allergy/AdvReac Type Severity Reaction Status Date / Time No Known Allergies Allergy Verified 03/22/25 12:22 Review of Systems 2 Review of Systems: Pertinent review of systems as mentioned in HPI. All other system otherwise negative. [facility] Past Medical History [facility] Narrative: Medical history as mentioned in [facility] Medical History (Updated 03/22/25 @ 19:49 by Mary Edmonds DO) Pulmonary artery aneurysm Thoracic aortic aneurysm Hypertension Prostate cancer Aphasia Dementia Family History Family History Mother Alzheimer dementia Social History Social History Household Members: Spouse Housing: Assisted Living Facility Do you presently have visiting nurse or other home services: No Alcohol intake: current Alcohol intake frequency: holidays/special occasions only Comment: WINE Patient Tobacco Use Status: Never used Tobacco Smoked in Last 30 Days: No Use of substances other than those prescribed or required for medical reasons: No Advance Directives: Yes Advance Directives on File: Yes Advance Directives Date on File: 08/01/25 Do you have a plan to hurt others: No Plan service: Yes ([employer]) Current occupational status: retired Physical Exam ED Exam Exam: General: Pleasant, no distress, interacting appropriately Head: Normacephalic, atraumatic ENT: oral mucosa dry, neck supple, no tracheal deviation Cardiovascular: regular rate, regular rhythm, no murmurs, rubbing, gallops Respiratory: CTAB, no wheeze, rales, rhonchi Gastrointestinal: Distention of the left side of his abdomen, hard mass palpated on the left abdomen Extremities: No limb pain or swelling, no calf tenderness Neurological: Awake and alert, no facial droop noted Skin: Warm and dry Psychiatric: Appropriate mood and thoughts Vital Signs: Vital Signs - 24 hr 03/22/25 12:20 03/22/25 14:48 03/22/25 15:13 Temperature 97.5 F 96.9 F Pulse Rate 61 58 Respiratory Rate 16 18 15 Blood Pressure 157/83 H 168/82 H Pulse Oximetry 95 95 Oxygen Delivery Method Room Air Room Air 03/22/25 16:25 03/22/25 20:09 03/22/25 22:21 Temperature 96.9 F 97.0 F 97.1 F Pulse Rate 58 67 68 Respiratory Rate 15 16 16 Blood Pressure 168/82 H 143/86 H 160/83 H Pulse Oximetry 95 94 96 Oxygen Delivery Method Room Air Room Air Room Air 03/23/25 06:35 Temperature 97.9 F Pulse Rate 66 Respiratory Rate 16 Blood Pressure 129/77 Pulse Oximetry 95 Oxygen Delivery Method Room Air BMI result Body Mass Index 21.0 Medications Administered Discontinued Medications Generic Name Dose Route Start Last Admin Trade Name Freq PRN Reason Stop Dose Admin Sodium Chloride 1,000 mls @ 999 mls/hr 03/22/25 12:30 03/22/25 14:11 Ns IV 03/22/25 13:30 Infused .Q1H1M TANI Infusion Iohexol 100 ml 03/22/25 15:13 03/22/25 15:14 Iohexol 350 Mg/Ml 100 Ml Infus..Btl IV 03/22/25 15:14 85 ml ONCE ONE Administration Medical Decision Making Medical Decision Making [facility] Narrative: This is a 89-year-old male history of dementia, hypertension, aortic aneurysm, syncope, fall pneumonia presented hospital today for evaluation of weakness. He is not complaining of chest pain or any abdominal pain at this time no nausea or vomiting. No diarrhea. Denies any fever. Patient does have a mass palpated on abdominal exam we will obtain a CT imaging. Screening CT head will be obtained as well. He has not complain of any neck pain. I do not think patient needs cervical spine imaging at this time. He is neurologically intact and I do not think this is a stroke. IV fluid be provided the patient. Lab work will be obtained. We will obtain TSH is evaluate for any hypothyroidism. He is on levothyroxine for a medication. We will also plan to obtain a EKG screen for any signs of cardiac arrhythmia. A screening chest x-ray will be obtained as well. Chest x-ray shows right lung atelectasis, patient does have a left abdominal mass this is known to family. According to patient's partner this was evaluated by Oncology. They have decided to leave it alone at this time. Patient's lab work is unremarkable. No sign of metabolic abnormality that may be causing his weakness. EKG did not show any signs of STEMI. Discussed the case further with the patient's partner who stated that patient is needing increased demand for nursing care due to advancement of his Alzheimer. We will plan to keep patient here is a Phys obs for physical therapy and case management. Discussed resuscitation preference with the patient's partner Mamadou who is his healthcare proxy. Patient would like to be DNR DNI. Diet order placed. Time: 10:31 Date: 03/23/25 Provider: CARRINGTON Ray Physician observation ended at 10:30AM. Patient was seen by Physical therapy and has been followed by the supportive employment case manager. Patient will be discharged to [facility] for short-term rehab at 11:30 a.m. this morning. Differential Diagnosis Differential Diagnoses: The differential diagnosis associated with the presentation includes Abdominal mass, electrolyte derangement, dehydration, syncope, cardiac arrhythmia Lab Data MDM Lab Attestation statement: I reviewed the patient's lab results. 03/22/25 13:04 03/22/25 13:04 Labs: Lab Results 03/22/25 03/22/25 03/23/25 Range/Units 13:04 13:28 08:55 WBC 8.4 (4.8-10.8) X10*3/uL RBC 3.73 L (4.60-5.80) X10*6/uL Hgb 9.5 L (14.0-18.0) g/dl Hct 30.2 L (42.0-52.0) % MCV 81.0 (80.0-98.0) fL MCH 25.5 L (27.0-33.0) pg MCHC 31.5 (31.0-36.0) g/dl RDW 16.7 H (11.0-16.0) % Plt Count 354 (160-400) X10*3/uL MPV 8.0 L (9.4-12.4) fL Immature Gran % (Auto) 0.5 H (0.0-0.4) % Neut % (Auto) 82.1 H (45-73) % Lymph % (Auto) 10.7 L (20-40) % [place] % (Auto) 6.3 (2-11) % Eos % (Auto) 0.2 (0-4) % Baso % (Auto) 0.2 (0-2) % Lymph # (Auto) 0.9 L (1.2-4.9) X10*3/uL [place] # (Auto) 0.5 (0.1-1.2) X10*3/uL Eos # (Auto) 0.0 (0.0-0.4) X10*3/uL Baso # (Auto) 0.0 (0.0-0.2) X10*3/uL Abs Immat Gran (auto) 0.04 H (0.00-0.03) X10*3/uL Absolute Neuts (auto) 6.9 (2.0-8.3) x10*3/uL Absolute Nucleated RBC 0.000 (0.0-0.012) X10*3/uL Nucleated RBC % (auto) 0.0 (0.0-0.2) /100WBC Sodium 140 (135-145) mmol/L Potassium 3.8 (3.3-5.1) mmol/L Chloride 109 H (96-108) mmol/L Carbon Dioxide 23 (22-29) mmol/L Anion Gap 12 (12-20) BUN 14 (9-16) mg/dL Creatinine 0.82 (0.5-1.4) mg/dL Estim Creat Clear Calc 52.9 Estimated GFR > 60 Random Glucose 109 (60-115) mg/dL Calcium 9.2 (8.4-10.2) mg/dL Magnesium 2.1 (1.6-2.6) mg/dL Total Bilirubin 0.4 (0.0-1.0) mg/dL AST 15 (5-37) U/L ALT 7 (0-40) U/L Alkaline Phosphatase 100 (39-117) U/L Total Protein 7.4 (6.5-8.0) g/dL Albumin 3.0 L (3.5-5.0) g/dL TSH 3.91 (0.32-4.0) uIU/mL Urine Color Yellow Urine Appearance Clear Urine pH 7.0 (5.0-9.0) Ur Specific [place] 1.010 (1.005-1.025) Urine Protein Negative (Neg-Trace) mg/dL Urine Glucose (UA) Negative (Negative) mg/dL Urine Ketones Negative (Negative) mg/dL Urine Blood Negative (Negative) Urine Nitrite Negative (Negative) Ur Leukocyte Esterase Negative (Negative) Influenza Type A (PCR) NEGATIVE (Negative) Influenza Type B (PCR) NEGATIVE (Negative) RSV RNA Qual (PCR) NEGATIVE (Negative) SARS-CoV-2 RNA (RT-PCR) NEGATIVE (Negative) Independent Interpretation I performed an independent interpretation of an: CT Scan Radiology Impression Discussion of test interpretation with radiology: I have reviewed the radiologist's reading. Discharge Plan Discharge Clinical Impression: Weakness, Abdominal mass, left lower quadrant, Alzheimer dementia Patient Disposition: Xfer Inpatient Rehab Fac Transfer Details: [facility] [facility] Instructions: Alzheimer Disease (DC), Dementia (ED), Weakness (ED) Additional Instructions: Karsten was seen in the ER and did not meet medical necessity for hospital admission. Please continue all at-home medications as prescribed. If any new or worsening symptoms occur including but not limited to severe chest pain, shortness for breath, severe changes in mentation, please seek emergent care. There was a mass seen your left lower quadrant, this was discussed previously. Please follow-up with your primary care physician. FINDINGS: LOWER CHEST: The visualized lung bases are clear. There is no pleural effusion. CARDIOVASCULATURE: The heart is normal in size. There is no pericardial effusion. LIVER: The liver is normal in size and contour. No liver mass is identified. The hepatic and portal veins are patent. GALLBLADDER / BILE DUCTS: The gallbladder is unremarkable. There is no intra or extrahepatic biliary ductal dilatation. SPLEEN: The spleen is normal in size. No focal splenic lesion is identified. PANCREAS: The pancreas is unremarkable in appearance. ADRENAL GLANDS: Within normal limits. KIDNEYS/RETROPERITONEUM: No renal calculi are identified. There is mild left hydronephrosis, likely secondary to stretching of the ureter around the patient's known left abdominal mass.. There is a 1.6 cm cyst at the upper pole of the right kidney. A smaller cyst is noted at the lower pole of the left kidney. LYMPH NODES: No abdominal or pelvic lymphadenopathy. VASCULATURE: The abdominal aorta demonstrates atherosclerotic calcification, but is normal in caliber. MESENTERY/PERITONEUM: No free fluid. There has been interval enlargement of the previously noted left lower quadrant mass which now measures 11.5 x 8.4 x 10.7 cm (previously 7.6 x 6.3 x 6.9 cm). There is no free intraperitoneal gas. STOMACH: The stomach is collapsed, limiting evaluation. SMALL BOWEL: The small bowel is normal in caliber. COLON: There is diverticulosis of the descending and sigmoid colon, without evidence of diverticulitis. APPENDIX: The appendix is not seen, however no inflammatory changes are seen adjacent to the cecum. URINARY BLADDER/PELVIC ORGANS: The urinary bladder is unremarkable. The patient is status post prostatectomy. BONES: The bones are intact. CT/CT abdomen pelvis w IV con IMPRESSION: Interval enlargement of the previously noted left lower quadrant mass as described. This is amenable to imaging guided biopsy if desired. Electronically signed by: Santiago Appiah MD 03/22/2025 03:27 PM EDT Dictated By: Santiago Appiah MD Prescriptions: No Action (DME) T.Khushboo Knee Jnqotm-O-Cxztraq Misc See Rx Instructions .Route Qty: 2 0RF Rx Instructions: As directed levothyroxine 25 mcg tablet 25 mcg PO DAILY donepezil 5 mg tablet 5 mg PO DAILY Referrals: [place] [Outside] Print Language: Sami
[2025-03-22 13:08] LABS: MANUAL DIFF FLAG NO
[2025-03-22 13:09] LABS: Hematocrit 30.2 % (42.0-52.0); Hemoglobin 9.5 g/dl (14.0-18.0); Imm Gran Abs Auto 0.04 X10*3/uL (0.00-0.03); Imm Gran Pct Auto 0.5 % (0.0-0.4); Lymphocytes Absolute Auto 0.9 X10*3/uL (1.2-4.9); Mean Corpuscular HGB Conc 31.5 g/dl (31.0-36.0); Mean Corpuscular Hemoglobin 25.5 pg (27.0-33.0); Mean Corpuscular Volume 81.0 fL (80.0-98.0); NRBC Abs Auto 0.000 X10*3/uL (0.0-0.012); NRBC Pct Auto 0.0 /100WBC (0.0-0.2); Platelet Count 354 X10*3/uL (160-400); Red Blood Count 3.73 X10*6/uL (4.60-5.80); White Blood Count 8.4 X10*3/uL (4.8-10.8)
[2025-03-22 13:26] LABS: Alanine Aminotransferase 7 U/L (0-40); Albumin Level 3.0 g/dL (3.5-5.0); Alkaline Phosphatase 100 U/L (39-117); Anion Gap 12 (12-20); Aspartate Amino Transferase 15 U/L (5-37); Blood Urea Nitrogen 14 mg/dL (9-16); Calcium 9.2 mg/dL (8.4-10.2); Carbon Dioxide 23 mmol/L (22-29); Chloride 109 mmol/L (96-108); Creatinine Clr Calc Pharmacy 52.9; Estimated Glomerular Filt Rate > 60; Magnesium 2.1 mg/dL (1.6-2.6); Potassium 3.8 mmol/L (3.3-5.1); Sodium 140 mmol/L (135-145); Total Protein 7.4 g/dL (6.5-8.0)
[2025-03-22 13:42] LABS: Appearance Urine Clear; Glucose Urine UA Negative (Negative); PH 7.0 (5.0-9.0); Specific Gravity - Urine 1.010 (1.005-1.025)
[2025-03-22 14:48] VITALS: RESP 18
[2025-03-22 15:13] VITALS: BP 168/82; PULSE 58; RESP 15; TEMP 36.1; O2SAT 95
[2025-03-22] MEDS: iohexoL 350 MG/ML 100 ML INFUS..BTL IV (15:14)
--- OUTSIDE RECORDS SUMMARY | 2025-03-22 15:40 | XMS_ITS | Encounter Summary ---
Author Organization [facility] Address [address] [address] Phone Care Team Providers Care Litigation Paralegal Name Role Phone Cassie Perez MD Unavailable Hank Guzman MD Primary Care Provider [phone] Hank Guzman MD Unavailable Clementine Freeman MD Primary Care Provider [phone] Cassie Perez MD Unavailable Hank Guzman MD Unavailable Hank Guzman MD Unavailable Hank Guzman MD Unavailable Hank Guzman MD Unavailable Hank Guzman MD Unavailable Encounter Details Date Type Department Care Team (Late st Contact Info) Description 04/24/2023 Transcribe Orders Virtual Department [address] [place] [address] Clementine Freeman MD [address] [place] [address] [phone] [email or web address] Cardiac murmur, unspecified Social History Tobacco Use [...] high school, GED, job training, learning the Ethiopian language, technical skills, or developing parenting skills)? [...] documented as of this encounter Care Teams Litigation Paralegal Relationship Specialty Start Date End Date Hank Guzman MD [address] [place] [address] PCP - General Internal Medicine 05/20/22 04/30/23 Clementine Freeman MD [address] [place] [phone] [email or web address] PCP - General Internal Medicine 05/01/23 Cassie Perez MD Consulting Provider Geriatric Medicine 11/09/21 Hank Guzman MD [address] [place] [phone] Insurance Assigned Provider 09/20/23 09/19/24 Cassie Perez MD Geriatric Medicine 04/19/24 Hank Guzman MD [address] [place] [address] Insurance Assigned Provider 09/20/23 10/23/24 Hank Guzman MD [address] [place] [address] [email or web address] Insurance Assigned Provider 09/20/23 11/20/24 Hank Guzman MD [address] [place] [address] [email or web address] Insurance Assigned Provider 09/20/23 12/25/24 Hank Guzman MD [address] [place] [address] [email or web address] Insurance Assigned Provider 09/20/23 01/22/25 Hank Guzman MD [address] [place] [address] [email or web address] Insurance Assigned Provider 09/20/23 02/19/25 documented as of this encounter Additional Source Comments The information contained in this document represents components of the legal health record. It is not the complete legal health record.[facility]
--- OUTSIDE RECORDS SUMMARY | 2025-03-22 15:40 | XMS_ITS | Encounter Summary ---
Author Organization [facility] Address [address] [address] Phone Care Team Providers Care Willow Machine Operator Name Role Phone Cassie Perez MD Unavailable Hank Guzman MD Unavailable Clementine Freeman MD Primary Care Provider [phone] Cassie Perez MD Unavailable [phone] Hank Guzman MD Unavailable Hank Guzman MD Unavailable Hank Guzman MD Unavailable Hank Guzman MD Unavailable Hank Guzman MD Unavailable Encounter Details Date Type Department Care Team (Late st Contact Info) Description 11/21/2023 Transcribe Orders Virtual Department [address] [place] [address] Clementine Freeman MD [address] [place] [address] [phone] [email or web address] Pneumonia due to infectious organism, unspecified laterality, [...] documented as of this encounter Care Teams Willow Machine Operator Relationship Specialty Start Date End Date Clementine Freeman MD [address] [place] [phone] [email or web address] PCP - General Internal Medicine 05/01/23 Cassie Perez MD [email or web address] Consulting Provider Geriatric Medicine 11/09/21 Hank Guzman MD [address] [place] [phone] Insurance Assigned Provider 09/20/23 09/19/24 Cassie Perez MD Geriatric Medicine 04/19/24 Hank Guzman MD [address] [place] [phone] [email or web address] Insurance Assigned Provider 09/20/23 10/23/24 Hank Guzman MD [address] [place] [phone] [email or web address] Insurance Assigned Provider 09/20/23 11/20/24 Hank Guzman MD [address] [place] [address] [email or web address] Insurance Assigned Provider 09/20/23 12/25/24 Hank Guzman MD [address] [place] [phone] Insurance Assigned Provider 09/20/23 01/22/25 Hank Guzman MD [address] [place] [phone] [email or web address] Insurance Assigned Provider 09/20/23 02/19/25 documented as of this encounter Additional Source Comments The information contained in this document represents components of the legal health record. It is not the complete legal health record.[facility]
--- OUTSIDE RECORDS SUMMARY | 2025-03-22 15:41 | XMS_ITS | Encounter Summary ---
Author Organization [facility] Address [address] [facility] [address] [place] [address] Phone Care Team Providers Care Decorating Consultant Name Role Phone Jannette Ramirez MD Primary Care Provider [phone] Kiki Norman MD Primary Care Provid er Cassie Perez MD Unavailable [phone] Unknown, Unknown Primary Care Provider Hank Anne MD Primary Care Provider [phone] Hank Guzman MD Unavailable Clementine Freeman MD Primary Care Provider [phone] Cassie Perez MD Unavailable Hank Guzman MD Unavailable Hank Guzman MD Unavailable Hank Guzman MD Unavailable Hank Guzman MD Unavailable Hank Guzman MD Unavailable Encounter Details Date Type Department Care Team (Latest Contact Info) Description 08/22/2020 Transcribe Orders [facility] [address] [place] [address] Jannette Ramirez MD [address] [place] [phone] [email or web address] Essential hypertension, benign (Primary Dx); Hyperlipidemia, [...] EST) WBC 5.04 4.00 - 11.00 K/uL [facility] RBC 4.49 3.90 - 5.69 M/uL [facility] HGB 14.1 12.4 - 17.3 g/dL [facility] HCT 42.6 37.0 - 51.0 % [facility] PLT 232 140 - 430 K/uL [facility] MCV 94.9 78.0 - 97.0 fL [facility] MCH 31.4 25.0 - 33.0 pg [facility] MCHC 33.1 32.0 - 36.0 g/dL [facility] RDW 13.1 11.0 - 15.0 % [facility] MPV 9.0 8.4 - 12.8 fl [facility] NRBC 0.00 0 /100 WBCs [facility] ABSOLUTE NRBC 0.00 0 K/uL [facility] DIFF METHOD Auto [facility] NEUTS 57.0 43.0 - 75.0 % [facility] LYMPHS 31.7 18.2 - 47.4 % [facility] MONOS 7.3 4.00 - 11.00 % [facility] EOS 3.0 0.0 - 8.0 % [facility] BASOS 0.6 0.0 - 2.0 % [facility] Granulocytes, immature (%) 0.4 0.0 - 0.9 % [facility] ABSOLUTE NEUTS 2.87 1.80 - 7.70 K/uL [facility] ABSOLUTE LYMPHS 1.60 1.00 - 3.10 K/uL [facility] ABSOLUTE MONOS 0.37 0.20 - 0.80 K/uL [facility] ABSOLUTE EOS 0.15 0.00 - 0.80 K/uL [facility] ABSOLUTE BASOS 0.03 0.00 - 0.09 K/uL [facility] Granulocytes, immature 0.02 0.00 - 0.05 K/uL [facility] Blood 08/22/2020 10:1 6 AM EST 08/22/2020 10:20 AM EST us Jannette Ramirez MD LAB BLOOD ORDERABLES Final Result Performing Organization Address City/[facility]/ZIP Co de Phone Number [address] [address] * Sedimentation rate (ESR) (08/22/2020 10:16 AM EST) ESR 8 0 - 20 mm/h [facility] Blood 08/22/2020 10:1 6 AM EST 08/22/2020 10:20 AM EST us Jannette Ramirez MD LAB BLOOD ORDERABLES Final Result Performing Organization Address [facility] Co de Phone Number [address] [address] * C-Reactive Protein (08/22/2020 10:16 AM EST) C REACTIVE PROTEIN <3.0 0.0 - 4.0 mg/L [facility] Blood 08/22/2020 10:1 6 AM EST 08/22/2020 10:20 AM EST us Jannette Ramirez MD LAB BLOOD ORDERABLES Final Result Performing Organization Address [facility] Co de Phone Number [address] [address] * LFTs (hepatic panel) (08/22/2020 10:16 AM EST) ALKALINE PHOSPHATASE 103 39 - 117 U/L [facility] TOTAL BILIRUBIN 0.9 0.0 - 1.2 mg/dL [facility] DIRECT BILIRUBIN <0.2 0 - 0.3 mg/dL [facility] Bilirubin (Indirect) NOT CALCULATED 0 - 1.5 mg/dL [facility] AST 20 0 - 37 U/L [facility] ALT 11 0 - 40 U/L [facility] TOTAL PROTEIN 7.2 6.5 - 8.0 g/dL [facility] ALBUMIN 4.1 3.9 - 4.8 g/dL [facility] GLOBULIN 3.1 1 - 4.8 g/dL [facility] A/G Ratio 1.32 1.00 - 4.80 RATIO [facility] Blood 08/22/2020 10:1 6 AM EST 08/22/2020 10:20 AM EST us Jannette Ramirez MD LAB BLOOD ORDERABLES Final Result Performing Organization Address City/State/[facility] Co de Phone Number [address] [address] * Lipid panel (08/22/2020 10:16 AM EST) Pathologist [facility] HDL 48 mg/dL [facility] Comment: Interpretation <40 mg/dL: Low HDL cholesterol (major risk factor for CHD) Greater than or equal to 60 mg/dL: High HDL cholesterol ( negative risk factor for CHD) HDL - cholesterol is affected by a number of factors, e.g. smoking, excerise, hormones, sex and age. CHOLESTEROL 165 0 - 240 mg/dL [facility] TRIGLYCERIDES 80 30 - 160 mg/dL [facility] LDL 101 50 - 129 mg/dL [facility] Comment: LDL levels in terms of risk for coronary heart disease: <100 mg/dL: Optimal 100-129 mg/dL: Near or above optimal 130-159 mg/dL: Borderline high 160-189 mg/dL: High >190 mg/dL: Very High CARDIAC RISK RATIO 3.4 3.4 - 5.0 C [facility] Blood 08/22/2020 10:1 6 AM EST 08/22/2020 10:20 AM EST us Jannette Ramirez MD LAB BLOOD ORDERABLES Final Result Performing Organization Address City/[facility]/ZIP Co de Phone Number [address] [address] * Hemoglobin A1c (08/22/2020 10:16 AM EST) HEMOGLOBIN A1C 5.3 4.3 - 5.8 % [facility] Blood 08/22/2020 10:1 6 AM EST 08/22/2020 10:20 AM EST us Jannette Ramirez MD LAB BLOOD ORDERABLES Final Result Performing Organization Address [facility] Co de Phone Number [address] [address] * (ABNORMAL) Basic metabolic panel (08/22/2020 10:16 AM EST) SODIUM 138 133 - 146 mmol/L [facility] CHLORIDE 104 96 - 108 mmol/L [facility] POTASSIUM 4.5 3.3 - 5.1 mmol/L [facility] CO2 27 21 - 35 mmol/L [facility] BUN 20(H) 6 - 19 mg/dL [facility] CREATININE 0.90 0.5 - 1.5 mg/dL [facility] GLUCOSE 88 70 - 99 mg/dL [facility] CALCIUM 9.4 8.4 - 10.3 mg/dL [facility] EGFR 79 >59 mL/min/1.7 3m2 [facility] Comment:Estimated glomerular filtration rate calculated using the CKD-EPI equation. ANION GAP 12 10 - 20 mmol/L [facility] Blood 08/22/2020 10:1 6 AM EST 08/22/2020 10:20 AM EST us Jannette Ramirez MD LAB BLOOD ORDERABLES Final Result Performing Organization Address City/[facility]/ZIP Co de Phone Number [address] [address] documented in this encounter Visit Diagnoses Diagnosis Essential hypertension, benign- Primary Hyperlipidemia, unspecified hyperlipidemia type Loss of weight documented in this encounter Additional Health Concerns Infection Onset Date Last Indicated Resolved Time CoV-Risk 05/20/2022 05/20/2022 05/31/2022 1:23 AM EST documented as of this encounter Care Teams Decorating Consultant Relationship Specialty Start Date End Date Jannette Ramirez MD [email or web address] PCP - General Internal Medicine 05/05/20 10/23/21 Kiki Norman MD [address] [place] [address] [email or web address] PCP - General Family Medicine 10/24/21 04/18/22 Unknown, Traci, PCP - General 04/22/22 05/19/22 Hank Guzman MD [address] [place] [address] [email or web address] PCP - General Internal Medicine 05/20/22 04/30/23 Clementine Freeman MD [address] [place] [address] [email or web address] PCP - General Internal Medicine 05/01/23 Cassie Perez MD [address] [place] [address] [email or web address] Consulting Provider Geriatric Medicine 11/09/21 Hank Guzman MD [address] [place] [address] [email or web address] Insurance Assigned Provider 09/20/23 09/19/24 Cassie Perez MD [address] [place] [address] [email or web address] Geriatric Medicine 04/19/24 Hank Guzman MD [address] [place] [address] Insurance Assigned Provider 09/20/23 10/23/24 Hank Guzman MD [address] [place] [address] Insurance Assigned Provider 09/20/23 11/20/24 Hank Guzman MD [address] [place] [address] Insurance Assigned Provider 09/20/23 12/25/24 Hank Guzman MD [address] [place] [address] Insurance Assigned Provider 09/20/23 01/22/25 Hank Guzman MD [address] [place] [address] Insurance Assigned Provider 09/20/23 02/19/25 documented as of this encounter Additional Source Comments The information contained in this document represents components of the legal health record. It is not the complete legal health record.[facility]
--- OUTSIDE RECORDS SUMMARY | 2025-03-22 15:41 | XMS_ITS | Encounter Summary ---
Author Organization [facility] Address [address] [facility] [address] [place] [address] Phone Care Team Providers Care Account Services Representative Name Role Phone Jannette Ramirez MD Primary Care Provider [phone] Kiki Norman MD Primary Care Provid er Cassie Perez MD Unavailable [phone] Unknown, Unknown Primary Care Provider Hank Anne MD Primary Care Provider Hank Guzman MD Unavailable Clementine Freeman MD Primary Care Provider [phone] Cassie Perez MD Unavailable [phone] Hank Guzman MD Unavailable Hank Guzman MD Unavailable Hank Guzman MD Unavailable Hank Guzman MD Unavailable Hank Guzman MD Unavailable Encounter Details Date Type Department Care Team (Late st Contact Info) Description 08/07/2020 Procedure Pass [facility], Ct Scan - [address] [address] Social History Tobacco Use Types Packs/Day Years [...] documented as of this encounter Care Teams Account Services Representative Relationship Specialty Start Date End Date Jannette Ramirez MD [email or web address] PCP - General Internal Medicine 05/05/20 10/23/21 Kiki Norman MD [address] [place] [address] [email or web address] PCP - General Family Medicine 10/24/21 04/18/22 Unknown, Traci, MD PCP - General 04/22/22 05/19/22 Hank Guzman MD [address] [place] [address] [email or web address] PCP - General Internal Medicine 05/20/22 04/30/23 Clementine Freeman MD [address] [place] [address] [email or web address] PCP - General Internal Medicine 05/01/23 Cassie Perez MD [address] [place] [address] [email or web address] Consulting Provider Geriatric Medicine 11/09/21 Hank Guzman MD [address] [place] [address] Insurance Assigned Provider 09/20/23 09/19/24 Cassie Perez MD [address] [place] [address] [email or web address] Geriatric Medicine 04/19/24 Hank Guzman MD [address] [place] [address] Insurance Assigned Provider 09/20/23 10/23/24 Hank Guzman MD [address] [place] [address] Insurance Assigned Provider 09/20/23 11/20/24 Hank Guzman MD [address] [place] [address] Insurance Assigned Provider 09/20/23 12/25/24 Hank Guzman MD [address] [place] [address] Insurance Assigned Provider 09/20/23 01/22/25 Hank Guzman MD [address] [place] [address] Insurance Assigned Provider 09/20/23 02/19/25 documented as of this encounter Additional Source Comments The information contained in this document represents components of the legal health record. It is not the complete legal health record.[facility]
--- OUTSIDE RECORDS SUMMARY | 2025-03-22 15:41 | XMS_ITS | Encounter Summary ---
Author Organization [facility] Address [address] [facility] [address] [place] [address] Phone Care Team Providers Care Revising Clerk Name Role Phone Laura Botello MD Primary Care Provi hilda Jannette Ramirez MD Primary Care Provider Kiki Norman MD Primary Care Provid er Cassie Perez MD Unavailable [phone] Unknown, Unknown Primary Care Provider Hank Anne MD Primary Care Provider Hank Guzman MD Unavailable Clementine Freeman MD Primary Care Provider [phone] Cassie Perez MD Unavailable [phone] Hank Guzman MD Unavailable Hank Guzman MD Unavailable Hank Guzman MD Unavailable Hank Guzman MD Unavailable Hank Guzman MD Unavailable Encounter Details Date Type Department Care Team (Late st Contact Info) Description 04/17/2020 Procedure Pass [facility], Ct Scan - [address] [address] Social History Tobacco Use Types Packs/Day Years [...] documented as of this encounter Care Teams Revising Clerk Relationship Specialty Start Date End Date Laura Botello MD [email or web address] PCP - General Internal Medicine 01/18/20 05/04/20 Jannette Ramirez MD [email or web address] PCP - General Internal Medicine 05/05/20 10/23/21 Kiki Norman MD [address] [place] [address] [email or web address] PCP - General Family Medicine 10/24/21 04/18/22 Unknown, Traci, PCP - General 04/22/22 05/19/22 Hank Guzman MD [address] [place] [address] [email or web address] PCP - General Internal Medicine 05/20/22 04/30/23 Clementine Freeman MD [address] [place] [address] [email or web address] PCP - General Internal Medicine 05/01/23 Cassie Perez MD [address] [address] [email or web address] Consulting Provider Geriatric Medicine 11/09/21 Hank Guzman MD [address] [place] [address] [email or web address] Insurance Assigned Provider 09/20/23 09/19/24 Cassie Perez MD [address] [address] [email or web address] Geriatric Medicine 04/19/24 Hank Guzman MD [address] [place] [address] [email or web address] Insurance Assigned Provider 09/20/23 10/23/24 Hank Guzman MD [address] [place] [address] [email or web address] Insurance Assigned Provider 09/20/23 11/20/24 Hank Guzman MD [address] [place] [address] Insurance Assigned Provider 09/20/23 12/25/24 Hank Guzman MD [address] [place] [address] Insurance Assigned Provider 09/20/23 01/22/25 Hank Guzman MD [address] [place] [address] [email or web address] Insurance Assigned Provider 09/20/23 02/19/25 documented as of this encounter Additional Source Comments The information contained in this document represents components of the legal health record. It is not the complete legal health record.[facility]
--- OUTSIDE RECORDS SUMMARY | 2025-03-22 15:41 | XMS_ITS | Encounter Summary ---
Author Organization [facility] Address [address] [place] [address] Phone Care Team Providers Care Power Cleaner Operator Name Role Phone Jannette Ramirez MD Primary Care Provider [phone] Kiki Norman MD Primary Care Provid er Cassie Perez MD Unavailable [phone] Unknown, Unknown Primary Care Provider Hank Anne MD Primary Care Provider [phone] Hank Guzman MD Unavailable Clementine Freeman MD Primary Care Provider [phone] Cassie Perez MD Unavailable [phone] Hank Guzman MD Unavailable Hank Guzman MD Unavailable Hank Guzman MD Unavailable Hank Guzman MD Unavailable Hank Guzman MD Unavailable Encounter Details Date Type Department Care Team (Late st Contact Info) Description 07/14/2020 Procedure Pass [place] Admitting Dept - Virtual Department [address] [place] [address] Social History Tobacco Use Types Packs/Day [...] documented as of this encounter Care Teams Power Cleaner Operator Relationship Specialty Start Date End Date Jannette Ramirez MD [email or web address] PCP - General Internal Medicine 05/05/20 10/23/21 Kiki Norman MD [address] [place] [address] [email or web address] PCP - General Family Medicine 10/24/21 04/18/22 Unknown, Unknown, MD PCP - General 04/22/22 05/19/22 Hank Guzman MD [address] [place] [address] [email or web address] PCP - General Internal Medicine 05/20/22 04/30/23 Clementine Freeman MD [address] [place] [address] [email or web address] PCP - General Internal Medicine 05/01/23 Cassie Perez MD [address] [place] [address] [email or web address] Consulting Provider Geriatric Medicine 11/09/21 Hank Guzman MD [address] [place] [address] [place] [address] Insurance Assigned Provider 09/20/23 09/19/24 Cassie Perez MD [address] [place] [address] [email or web address] [email or web address] Medicine 04/19/24 Hank Guzman MD [address] [place] [address] Insurance Assigned Provider 09/20/23 10/23/24 Hank Guzman MD [address] [place] [address] Insurance Assigned Provider 09/20/23 11/20/24 Hank Guzman MD [address] [place] [address] Insurance Assigned Provider 09/20/23 12/25/24 Hank Guzman MD [address] [place] [address] Insurance Assigned Provider 09/20/23 01/22/25 Hank Guzman MD [address] [place] [address] Insurance Assigned Provider 09/20/23 02/19/25 documented as of this encounter Additional Source Comments The information contained in this document represents components of the legal health record. It is not the complete legal health record.[facility]
--- OUTSIDE RECORDS SUMMARY | 2025-03-22 15:41 | XMS_ITS | Encounter Summary ---
Author Organization [facility] Address [address] [address] Phone Care Team Providers Care Window Machine Operator Name Role Phone Cassie Perez MD Unavailable [phone] Clementine Freeman MD Primary Care Provider [phone] Cassie Perez MD Unavailable [phone] Hank Guzman MD Unavailable Hank Guzman MD Unavailable Hank Guzman MD Unavailable Hank Guzman MD Unavailable Hank Guzman MD Unavailable Encounter Details Date Type Department Care Team (Late st Contact Info) Description 10/15/2024 Procedure Pass [facility], Ct Scan - [address] [address] Social History Tobacco Use Types Packs/Day Years [...] documented as of this encounter Care Teams Window Machine Operator Relationship Specialty Start Date End Date Clementine Freeman MD [address] [place] [address] [email or web address] PCP - General Internal Medicine 05/01/23 Cassie Perez MD [email or web address] Consulting Provider Geriatric Medicine 11/09/21 Cassie Perez MD [email or web address] Geriatric Medicine 04/19/24 Hank Guzman MD [address] [place] [address] [email or web address] Insurance Assigned Provider 09/20/23 10/23/24 Hank Guzman MD [address] [place] [address] [email or web address] Insurance Assigned Provider 09/20/23 11/20/24 Hank Guzman MD [address] [place] [address] [email or web address] Insurance Assigned Provider 09/20/23 12/25/24 Hank Guzman MD [address] [place] [address] [email or web address] Insurance Assigned Provider 09/20/23 01/22/25 Hank Guzman MD [address] [place] [address] [email or web address] Insurance Assigned Provider 09/20/23 02/19/25 documented as of this encounter Additional Source Comments The information contained in this document represents components of the legal health record. It is not the complete legal health record.[facility]
--- OUTSIDE RECORDS SUMMARY | 2025-03-22 15:41 | XMS_ITS | Encounter Summary ---
Author Organization [facility] Address [address] [address] Phone Care Team Providers Care Promotions Director Name Role Phone Cassie Perez MD Unavailable [phone] Clementine Freeman MD Primary Care Provider Cassie Perez MD Unavailable [phone] Hank Guzman MD Unavailable Hank Guzman MD Unavailable Hank Guzman MD Unavailable Hank Guzman MD Unavailable SoHank lomax MD Unavailable Encounter Details Date Type Department Care Team (Late st Contact Info) Description 10/14/2024 Ancillary Orders [facility], X-Ray - [address] [place] [address] Apoorva Aquino PA [address] [place] [address] [email or web address] Pain (Primary Dx); Weight loss Social History [...] VIEWS (10/14/2024 3:15 PM EDT) MGB IMG ROPE LAYING MACHINE OPERATOR COMMENT Streaky bilateral linear opacities. Cannot exclude nodular component in the right upper lobe. Question thick bandlike atelectasis or small infiltrates. Recommend follow-up chest x-ray or chest CT [facility] Anatomical Region Laterality Modality Chest Computed [...] initiated on 10/14/2024 3:26 PM, Message ID [id number]. Narrative 10/14/2024 3:33 PM EDT XR CHEST PA AND LATERAL 2 VIEWS Referring clinician's provided indication for this examination in [facility]: Weight Loss COMPARISON: None FINDINGS: [...] clinician's provided indication for this examination in [facility]:Weight Loss COMPARISON: None FINDINGS: Devices/Tubes/Lines: [...] was initiated on 10/14/2024 3:26 PM, MessageID [id number]. us Apoorva SHULTZ IMG XR CHEST Edited [...] documented as of this encounter Care Teams Promotions Director Relationship Specialty Start Date End Date Clementine Freeman MD [address] [place] [address] PCP - General Internal Medicine 05/01/23 Cassie Perez MD [email or web address] Consulting Provider Geriatric Medicine 11/09/21 Cassie Perez MD Geriatric Medicine 04/19/24 Hank Guzman MD [address] [place] [address] Insurance Assigned Provider 09/20/23 10/23/24 Hank Guzman MD [address] [place] [address] Insurance Assigned Provider 09/20/23 11/20/24 Hank Guzman MD [address] [place] [address] Insurance Assigned Provider 09/20/23 12/25/24 Hank Guzman MD [address] [place] [address] Insurance Assigned Provider 09/20/23 01/22/25 Hank Guzman MD [address] [place] [address] Insurance Assigned Provider 09/20/23 02/19/25 documented as of this encounter Additional Source Comments The information contained in this document represents components of the legal health record. It is not the complete legal health record.[facility]
--- OUTSIDE RECORDS SUMMARY | 2025-03-22 15:41 | XMS_ITS | Encounter Summary ---
Author Organization [facility] Address [address] [facility] [address] [place] [address] Phone Care Team Providers Care Program Architect Name Role Phone Jannette Ramirez MD Primary Care Provider [phone] Kiki Norman MD Primary Care Provid er Cassie Perez MD Unavailable [phone] Unknown, Unknown Primary Care Provider Hank Anne MD Primary Care Provider [phone] Hank Guzman MD Unavailable Clementine Freeman MD Primary Care Provider [phone] Cassie Perez MD Unavailable [phone] Hank Guzman MD Unavailable Hank Guzman MD Unavailable Hank Guzman MD Unavailable Hank Guzman MD Unavailable Hank Guzman MD Unavailable Encounter Details Date Type Department Care Team (Late st Contact Info) Description 11/20/2020 Procedure Pass [employer], Ct Scan - [address] [address] Social History Tobacco Use Types Packs/Day Years [...] documented as of this encounter Care Teams Program Architect Relationship Specialty Start Date End Date Jannette Ramirez MD [email or web address] PCP - General Internal Medicine 05/05/20 10/23/21 Kiki Norman MD [address] [place] [address] [email or web address] PCP - General Family Medicine 10/24/21 04/18/22 Unknown, Traci, MD PCP - General 04/22/22 05/19/22 Hank Guzman MD [address] [place] [address] [email or web address] PCP - General Internal Medicine 05/20/22 04/30/23 Clementine Freeman MD [address] [place] [address] [email or web address] PCP - General Internal Medicine 05/01/23 Cassie Perez MD [address] [place] [address] [email or web address] Consulting Provider Geriatric Medicine 11/09/21 Hank Guzman MD [address] [place] [address] Insurance Assigned Provider 09/20/23 09/19/24 Cassie Perez MD [address] [place] [address] [email or web address] Geriatric Medicine 04/19/24 Hank Guzman MD [address] [place] [address] Insurance Assigned Provider 09/20/23 10/23/24 Hank Guzman MD [address] [place] [address] Insurance Assigned Provider 09/20/23 11/20/24 Hank Guzman MD [address] [place] [address] Insurance Assigned Provider 09/20/23 12/25/24 Hank Guzman MD [address] [place] [address] Insurance Assigned Provider 09/20/23 01/22/25 Hank Guzman MD [address] [place] [address] Insurance Assigned Provider 09/20/23 02/19/25 documented as of this encounter Additional Source Comments The information contained in this document represents components of the legal health record. It is not the complete legal health record.[facility]
--- OUTSIDE RECORDS SUMMARY | 2025-03-22 15:41 | XMS_ITS | Clinical Summary ---
Author Organization [facility] Address [address] [address] Phone Care Team Providers Care Wholesale And Retail Merchant Name Role Phone Cassie Perez MD Unavailable [phone] Clementine Freeman MD Primary Care Provider Cassie Perez MD Unavailable [phone] Allergies Active Allergy Reactions Criticality Noted [...] I did encouraged to go to the blind teacher as was already scheduled because of the [...] - 01/27/2025 11:59 PM EDT Hospital Encounter [facility] [address] [place] [address] Clementine Freeman MD Discharge Disposition: Home or Self Care 01/27/2025 Transcribe Orders [facility] [address] [place] [address] Clementine Freeman MD Altered mental status, unspecified [...] this topic Medical Devices Implanted Type Area Loading Manager Device Identifier Shelf Expiration Date Model / Serial / Lot Plate 90mm 5 Hole Olecranon Titanium Standard Right - [id number] Implanted:Qty: 1 on 07/14/2020 by Trip Yarbrough DO at [facility] Right: [employer] 70-0305 / / Screw Bone 18x2.7mm Tap Loc Hexalobe Titanium Variable Angle Locking Full Thread Distal - [id number] Implanted:Qty: 2 on 07/14/2020 by Trip Yarbrough DO at [facility] Right: [employer] 30-0329 / / Screw Bone 20x2.7mm Tap Loc Hexalobe Titanium Variable Angle Locking Full Thread Distal - [id number] Implanted:Qty: 2 on 07/14/2020 by Trip Yarbrough DO at [facility] Right: [employer] 30-0330 / / Screw Bone 3.0x50mm Tap Loc Hexalobe Titanium Variable Angle Locking Full Thread Distal - [id number] Implanted:Qty: 1 on 07/14/2020 by Trip Yarbrough DO at [facility] Right: [employer] 30-0296 / / Screw Bone 16x3.5mm Radius Tap Loc Hexalobe Titanium Volar Distal Plating Locking Full Thread - [id number] Implanted:Qty: 1 on 07/14/2020 by Trip Yarbrough DO at [facility] Right: [employer] 30-0259 / / Screw Bone 20x3.5mm Radius Tap Loc Hexalobe Titanium Volar Distal Plating Locking Full Thread - [id number] Implanted:Qty: 1 on 07/14/2020 by Trip Yarbrough DO at [facility] Right: [employer] 30-0261 / / Screw Bone 18x3.5mm Radius Tap Loc Hexalobe Titanium Volar Distal Plating Locking - [id number] Implanted:Qty: 1 on 07/14/2020 by Trip Yarbrough DO at [facility] Right: [employer] 30-0237 / / Screw Bone 22x3.5mm Radius Tap Loc Hexalobe Titanium Volar Distal Plating Locking - [id number] Implanted:Qty: 1 on 07/14/2020 by Trip Yarbrough DO at [facility] Right: Melany CHARLES [id number] / / Procedures Procedure Name Priority Date/Time [...] (01/27/2025 2:34 PM EDT) COLOR Yellow Yellow [facility] CLARITY Clear [facility] GLUCOSE Negative Negative [facility] BILI Negative Negative [facility] KETONES Trace(A) Negative [facility] SPECIFIC GRAVITY 1.015 1.005 - 1.030 [facility] BLOOD Negative Negative [facility] PH 7.0 5.0 - 8.0 [facility] Protein-UA 1+(A) Negative [facility] NITRITE Negative Negative [facility] Leukocyte esterase, ur Trace(A) Negative [facility] Urine (Urine) 01/27/2025 2:3 4 PM EDT 01/27/2025 2:36 PM EDT us Clementine Freeman MD URINE ORDERABLES Final Resu lt [address] [address] * (ABNORMAL) Urine Culture (01/27/2025 2:34 PM EDT) Special Requests None Reflexed from [id number] 01/27/2025 6:40 PM EDT [facility] Urine Culture 10,000 to 100,000 colony forming units per mL MIXED DEBBY (3 OR MORE COLONY TYPES) Culture indicates contamination . Please resubmit if necessary.(A) 01/28/2025 11:33 AM EDT [facility] Urine 01/27/2025 2:34 PM EDT 01/27/2025 2:36 PM EDT Clementine Freeman MD MICROBIOLOGY - [facility]AL ORDE [facility] Final Result Performing Organization Address [facility]/ZIP Co de Phone Number [address] [address] * (ABNORMAL) Urine sediment (01/27/2025 2:34 PM EDT) WBC 11-20(A) NONE SEEN /hpf [facility] RBC 0-2(A) NONE SEEN /hpf [facility] URINE EPITHELIAL 5-10(A) NONE SEEN [facility] MUCUS 3+(A) NONE SEEN /hpf [facility] BACTERIA Trace(A) NONE SEEN /hpf [facility] CRYSTALS 2+ [facility] Comment:Calcium Oxalate 01/27/2025 2:34 PM EDT 01/27/2025 2:36 PM EDT Clementine Freeman MD URINE ORDERABLES Final Resu lt Performing Organization Address City/[facility]/ZIP Co de Phone Number [address] [address] * (ABNORMAL) Comprehensive metabolic panel (10/12/2024 10:25 AM EDT) SODIUM 137 133 - 146 mmol/L [facility] POTASSIUM 4.4 3.3 - 5.1 mmol/L [facility] CHLORIDE 103 96 - 108 mmol/L [facility] CO2 27 21 - 35 mmol/L [facility] BUN 17 6 - 19 mg/dL [facility] CREATININE 0.90 0.5 - 1.5 mg/dL [facility] GLUCOSE 88 70 - 99 mg/dL [facility] ALBUMIN 3.3(L) 3.9 - 4.8 g/dL [facility] TOTAL PROTEIN 8.0 6.5 - 8.0 g/dL [facility] CALCIUM 9.7 8.4 - 10.3 mg/dL [facility] ALKALINE PHOSPHATASE 118(H) 39 - 117 U/L [facility] TOTAL BILIRUBIN 0.4 0.0 - 1.2 mg/dL [facility] AST 22 0 - 37 U/L [facility] ALT 15 0 - 40 U/L [facility] GLOBULIN 4.7 1 - 4.8 g/dL [facility] EGFR 83 >59 mL/min/1.7 3m2 [facility] Comment:Estimated glomerular filtration rate calculated using the CKD-EPI refit equation. ANION GAP 11 10 - 20 mmol/L [facility] Blood 10/12/2024 10:2 5 AM EDT 10/12/2024 10:30 AM EDT us Clementine Freeman MD LAB BLOOD ORDERABLES Final Result Performing Organization Address [facility] Co de Phone Number [address] [address] * TSH (10/12/2024 10:25 AM EDT) TSH 3.14 0.27 - 4.20 uIU/mL [facility] Blood 10/12/2024 10:2 5 AM EDT 10/12/2024 10:30 AM EDT us Clementine Freeman MD LAB BLOOD ORDERABLES Final Result Performing Organization Address [facility] Co de Phone Number [address] [address] from Last 3 Months or Most Recently Relevant to Health Maintenance Insurance MEDICARE PART A & B [employer] MEDEX SUPPLEMENT MEDICARE PART A & B Mobile Complete [employer]OSS MEDEX SUPPLEMENT MEDICARE PART A & B MEDICARE PART A & B [place], [place] MEDICARE PART A & B Member Subscriber Plan / Payer (Ef fective 2002-Present) Name:Karsten Mendez Member ID:[id number] Relation to Subscriber:Self Name:Vanessa Karsten Subscriber ID:[id number] Payer ID:[id number] Group ID:Not on file Type:Medicare Address: [employer] [address] BLUE [employer]OSS MEDEX SUPPLEMENT MEDICARE PART A & B MEDICARE PART A & B [employer] MEDEX SUPPLEMENT MEDICARE PART A & B Mobile Complete [employer]OSS MEDEX SUPPLEMENT MEDICARE PART A & B [employer] MEDEX SUPPLEMENT Advance Directives For more information, please contact: [phone] (9AM - 5PM [facility] [place] [facility], Friday-Friday) Healthcare Agents on File Name Relationship Healthcare Agent [facility] Communication Mamadou Beard Other .Primary Health Care Agent (Proxy form on file) Care Teams Wholesale And Retail Merchant Relationship Specialty Start Date End Date Clementine Freeman MD [address] [place] [email or web address] PCP - General Internal Medicine 05/01/23 Cassie Perez MD Consulting Provider Geriatric Medicine 11/09/21 Cassie Perez MD Geriatric Medicine 04/19/24 Additional Source Comments The information contained in this document represents components of the legal health record. It is not the complete legal health record.[facility]
--- OUTSIDE RECORDS SUMMARY | 2025-03-22 15:41 | XMS_ITS | Encounter Summary ---
Author Organization [facility] Address [address] [facility] [address] [place] [address] Phone Care Team Providers Care Quarry Extraction Worker Name Role Phone Jannette Ramirez MD Primary Care Provider Kiki Norman MD Primary Care Provid er Cassie Perez MD Unavailable [phone] Unknown, Unknown Primary Care Provider Hank Anne MD Primary Care Provider SoHank lomax MD Unavailable Clementine Freeman MD Primary Care Provider [phone] Cassie Perez MD Unavailable Hank Guzman MD Unavailable Hank Guzman MD Unavailable Hank Guzman MD Unavailable Hank Guzman MD Unavailable Hank Guzman MD Unavailable Encounter Details Date Type Department Care Team (Latest Contact Info) Description 01/19/2021 Transcribe Orders Virtual Department [address] [place] [address] Kiara Camacho CNP [address] [place] [address], [address] [place] [phone] [email or web address] Other hydronephrosis (Primary Dx) [...] urinary tract stones identified. us Kiara Camacho ELEVATOR BUILDER IMG XR ABDOMEN Final Resu lt * [...] right isagain not detected sonographically. Kiara Camacho ELEVATOR BUILDER IM US RENAL Final Resu lt documented in this encounter Visit Diagnoses Diagnosis Other hydronephrosis- Primary Other hydronephrosis Other hydronephrosis documented in this encounter Additional Health Concerns Infection Onset Date Last Indicated Resolved Time CoV-Risk 05/20/2022 05/20/2022 05/31/2022 1:23 AM EST documented as of this encounter Care Teams Quarry Extraction Worker Relationship Specialty Start Date End Date Jannette Ramirez MD [email or web address] PCP - General Internal Medicine 05/05/20 10/23/21 Kiki Norman MD [address] [place] [address] [email or web address] PCP - General Family Medicine 10/24/21 04/18/22 Unknown, Traci, PCP - General 04/22/22 05/19/22 Hank Guzman MD [address] [place] [address] [email or web address] PCP - General Internal Medicine 05/20/22 04/30/23 Clementine Freeman MD [address] [place] [address] [email or web address] PCP - General Internal Medicine 05/01/23 Cassie Perez MD [address] [place] [address] [email or web address] Consulting Provider Geriatric Medicine 11/09/21 Hank Guzman MD [address] [place] [address] [email or web address] Insurance Assigned Provider 09/20/23 09/19/24 Cassie Perez MD [address] [place] [address] [email or web address] Geriatric Medicine 04/19/24 Hank Guzman MD [address] [place] [address] Insurance Assigned Provider 09/20/23 10/23/24 Hank Guzman MD [address] [place] [address] Insurance Assigned Provider 09/20/23 11/20/24 Hank Guzman MD [address] [place] [address] Insurance Assigned Provider 09/20/23 12/25/24 Hank Guzman MD [address] [place] [address] Insurance Assigned Provider 09/20/23 01/22/25 Hank Guzman MD [address] [place] [address] Insurance Assigned Provider 09/20/23 02/19/25 documented as of this encounter Additional Source Comments The information contained in this document represents components of the legal health record. It is not the complete legal health record.[facility]
--- OUTSIDE RECORDS SUMMARY | 2025-03-22 15:41 | XMS_ITS | Encounter Summary ---
Author Organization [facility] Address [address] [address] Phone Care Team Providers Care Vault Service Mechanic Name Role Phone Jannette Ramirez MD Primary Care Provider [phone] Kiki Norman MD Primary Care Provid er Cassie Perez MD Unavailable [phone] Unknown, Unknown Primary Care Provider Hank Anne MD Primary Care Provider Hank Guzman MD Unavailable Clementine Freeman MD Primary Care Provider [phone] Cassie Perez MD Unavailable [phone] Hank Guzman MD Unavailable Hank Guzman MD Unavailable Hank Guzman MD Unavailable Hank Guzman MD Unavailable Hank Guzman MD Unavailable Reason for Referral * MRI/CAT Scan - Closed Specialty Diagnoses / Procedures Referred By Jess benedict Referred To Contact Radiology Diagnoses Mild cognitive impairment, so stated Procedures CT Head Jannette Ramirez MD Phone: tel: fax: [email or web address] Referral ID Status Reason Start Date Expiration Date Visits Re quested Visits Authorized [id number] Closed 08/07/2020 08/07/2021 1 1 Encounter Details Date Type Department Care Team (Latest Contact Info) Description 08/07/2020 Transcribe Orders Virtual Department [address] [place] [address] Jannette Ramirez MD [address] [place] [phone] [email or web address] Mild cognitive impairment, so stated (Primary [...] documented as of this encounter Care Teams Vault Service Mechanic Relationship Specialty Start Date End Date Jannette Ramirez MD [email or web address] PCP - General Internal Medicine 05/05/20 10/23/21 Kiki Norman MD [address] [address] [email or web address] PCP - General Family Medicine 10/24/21 04/18/22 Unknown, Traci, PCP - General 04/22/22 05/19/22 Hank Guzman MD [address] [place] [address] [email or web address] PCP - General Internal Medicine 05/20/22 04/30/23 Clementine Freeman MD [address] [place] [address] [email or web address] PCP - General Internal Medicine 05/01/23 Cassie Perez MD [address] [place] [address] [email or web address] Consulting Provider Geriatric Medicine 11/09/21 Hank Guzman MD [address] [place] [address] [email or web address] Insurance Assigned Provider 09/20/23 09/19/24 Cassie Perez MD [address] [place] [address] Geriatric Medicine 04/19/24 Hank Guzman MD [address] [place] [address] Insurance Assigned Provider 09/20/23 10/23/24 Hank Guzman MD [address] [place] [address] Insurance Assigned Provider 09/20/23 11/20/24 Hank Guzman MD [address] [place] [address] Insurance Assigned Provider 09/20/23 12/25/24 Hank Guzman MD [address] [place] [address] Insurance Assigned Provider 09/20/23 01/22/25 Hank Guzman MD [address] [place] [address] Insurance Assigned Provider 09/20/23 02/19/25 documented as of this encounter Additional Source Comments The information contained in this document represents components of the legal health record. It is not the complete legal health record.[facility]
--- OUTSIDE RECORDS SUMMARY | 2025-03-22 15:41 | XMS_ITS | Encounter Summary ---
Author Organization [facility] Address [address] [address] Phone Care Team Providers Care Continuous Process Rotary Drum Tanner Name Role Phone Jannette Ramirez MD Primary Care Provider [phone] Kiki Norman MD Primary Care Provid er Cassie Perez MD Unavailable [phone] Unknown, Unknown Primary Care Provider Hank Anne MD Primary Care Provider SoHank lomax MD Unavailable Clementine Freeman MD Primary Care Provider [phone] Cassie Perez MD Unavailable [phone] Hank Guzman MD Unavailable Hank Guzman MD Unavailable Hank Guzman MD Unavailable Hank Guzman MD Unavailable Hank Guzman MD Unavailable Reason for Referral * MRI/CAT Scan - Closed Specialty Diagnoses / Procedures Referred By Jess benedict Referred To Contact Radiology Diagnoses Hydronephrosis, left Urinary frequency Procedures CT Abdomen/Pelvis Anthony Gaytan MD Phone: tel: fax: mailto:[email or web address] Referral ID Status Reason Start Date Expiration Date Visits Re quested Visits Authorized [id number] Closed 11/20/2020 11/20/2021 1 1 Encounter Details Date Type Department Care Team (Late st Contact Info) Description 11/20/2020 Ancillary Orders Virtual Department [address] [place] [address] Anthony Gaytan MD [address] [facility] [address] [place] [address] [email or web address] Hydronephrosis, left; Urinary frequency Social History Tobacco [...] documented as of this encounter Care Teams Continuous Process Rotary Drum Tanner Relationship Specialty Start Date End Date Jannette Ramirez MD [email or web address] PCP - General Internal Medicine 05/05/20 10/23/21 Kiki Norman MD [address] [place] [address] [email or web address] PCP - General Family Medicine 10/24/21 04/18/22 Unknown, Traci, PCP - General 04/22/22 05/19/22 Hank Guzman MD [address] [place] [address] [email or web address] PCP - General Internal Medicine 05/20/22 04/30/23 Clementine Freeman MD [address] [place] [address] [email or web address] PCP - General Internal Medicine 05/01/23 Cassie Perez MD [address] [place] [phone] [email or web address] Consulting Provider Geriatric Medicine 11/09/21 Hank Guzman MD [address] [place] [address] Insurance Assigned Provider 09/20/23 09/19/24 Cassie Perez MD [address] [place] [address] Geriatric Medicine 04/19/24 Hank Guzman MD [address] [place] [address] Insurance Assigned Provider 09/20/23 10/23/24 Hank Guzman MD [address] [place] [address] Insurance Assigned Provider 09/20/23 11/20/24 Hank Guzman MD [address] [place] [address] [email or web address] Insurance Assigned Provider 09/20/23 12/25/24 Hank Guzman MD [address] [place] [address] Insurance Assigned Provider 09/20/23 01/22/25 Hank Guzman MD [address] [place] [address] [email or web address] Insurance Assigned Provider 09/20/23 02/19/25 documented as of this encounter Additional Source Comments The information contained in this document represents components of the legal health record. It is not the complete legal health record.[facility]
--- OUTSIDE RECORDS SUMMARY | 2025-03-22 15:41 | XMS_ITS | Encounter Summary ---
Author Organization [facility] Address [address] [address] Phone Care Team Providers Care Contact Lens Molder Name Role Phone Cassie Perez MD Unavailable [phone] Clementine Freeman MD Primary Care Provider [phone] Cassie Perez MD Unavailable [phone] Hank Guzman MD Unavailable SoHank lomax MD Unavailable SoHank lomax MD Unavailable SoHank lomax MD Unavailable Hank Guzman MD Unavailable Reason for Referral * MRI/CAT Scan - Closed Specialty Diagnoses / Procedures Referred By Contac t Referred To Contact Radiology Diagnoses LLQ abdominal mass Weight loss Procedures CT Abdomen/Pelvis Apoorva Aquino PA [address] [place] [address] Phone: tel: fax: [email or web address] Referral ID Status Reason Start Date Expiration Date Visits Re quested Visits Authorized [id number] Closed 10/15/2024 10/15/2025 1 1 * MRI/CAT Scan - Closed Specialty Diagnoses / Procedures Referred By Contac t Referred To Contact Radiology Diagnoses LLQ abdominal mass Weight loss Procedures CT Chest Apoorva Aquino PA [address] [place] [address] Phone: tel: fax: mailto:[email or web address] Referral ID Status Reason Start Date Expiration Date Visits Re quested Visits Authorized [id number] Closed 10/15/2024 10/15/2025 1 1 Encounter Details Date Type Department Care Team (Latest Contact Info) Description 10/15/2024 Transcribe Orders Virtual Department [address] [place] [address] Apoorva Aquino PA [address] [place] [address] [email or web address] LLQ abdominal mass (Primary Dx); Weight loss [...] CONTRAST (10/24/2024 1:10 PM EDT) B IMG APPLIANCE PARTS COUNTER CLERK COMMENT Large left lower quadrant mass is new from November 2020. [facility] Anatomical Region Laterality Modality Abdomen, Pelvis Computed [...] initiated on 10/28/2024 9:00 PM, Message ID [id number]. Narrative 10/29/2024 6:[address] ABDOMEN/PELVIS [...] was initiated on 10/28/2024 9:00 PM,Message ID [id number]. Apoorvajeremías Aquino [place] IMG CT ABD/PELVIS Final Result * CT CHEST WITH CONTRAST (10/24/2024 1:10 PM EDT) MGB IMG APPLIANCE PARTS COUNTER CLERK COMMENT Complete obstruction of the right middle lobe bronchus, airway secretions versus an endobronchial lesion. Short interval follow-up chest CT. Consider bronchoscopy if clinically warranted. [facility] Anatomical Region Laterality Modality [...] initiated on 10/28/2024 2:37 PM, Message ID [id number]. Narrative 10/28/2024 2:[address] CHEST [...] was initiated on 10/28/2024 2:37 PM,Message ID [id number]. Apoorva SHULTZ [facility] CT CHEST Final Result [...] documented as of this encounter Care Teams Contact Lens Molder Relationship Specialty Start Date End Date Clementine Freeman MD [address] [place] [phone] [email or web address] PCP - General Internal Medicine 05/01/23 Cassie Perez MD Consulting Provider Geriatric Medicine 11/09/21 Cassie Perez MD Geriatric Medicine 04/19/24 Hank Guzman MD [address] [place] [phone] Insurance Assigned Provider 09/20/23 10/23/24 Hank Guzman MD [address] [place] [phone] Insurance Assigned Provider 09/20/23 11/20/24 Hank Guzman MD [address] [place] [address] Insurance Assigned Provider 09/20/23 12/25/24 Hank Guzman MD [address] [place] [phone] Insurance Assigned Provider 09/20/23 01/22/25 Hank Guzman MD [address] [place] [phone] Insurance Assigned Provider 09/20/23 02/19/25 documented as of this encounter Additional Source Comments The information contained in this document represents components of the legal health record. It is not the complete legal health record.[facility]
--- OUTSIDE RECORDS SUMMARY | 2025-03-22 15:41 | XMS_ITS | Encounter Summary ---
Author Organization [facility] Address [address] [address] Phone Care Team Providers Care Costume Shop Coordinator Name Role Phone Cassie Perez MD Unavailable Hank Guzman MD Primary Care Provider Hank Guzman MD Unavailable Clementine Freeman MD Primary Care Provider [phone] Cassie Perez MD Unavailable Hank Guzman MD Unavailable Hank Guzman MD Unavailable Hank Guzman MD Unavailable Hank Guzman MD Unavailable Hank Guzman MD Unavailable Encounter Details Date Type Department Care Team (Late st Contact Info) Description 02/25/2023 Procedure Pass [facility], [address] [address] Social History Tobacco Use Types Packs/Day Years [...] high school, GED, job training, learning the Malian language, technical skills, or developing parenting skills)? [...] documented as of this encounter Care Teams Costume Shop Coordinator Relationship Specialty Start Date End Date aHnk Guzman MD [address] [place] [address] PCP - General Internal Medicine 05/20/22 04/30/23 Clementine Freeman MD [address] [place] [address] [email or web address] PCP - General Internal Medicine 05/01/23 Cassie Perez MD Consulting Provider Geriatric Medicine 11/09/21 Hank Guzman MD [address] [place] [phone] Insurance Assigned Provider 09/20/23 09/19/24 Cassie Perez MD Geriatric Medicine 04/19/24 Hank Guzman MD [address] [place] [address] Insurance Assigned Provider 09/20/23 10/23/24 Hank Guzman MD [address] [place] [address] Insurance Assigned Provider 09/20/23 11/20/24 Hank Guzman MD [address] [place] [phone] [email or web address] Insurance Assigned Provider 09/20/23 12/25/24 Hank Guzman MD [address] [place] [phone] Insurance Assigned Provider 09/20/23 01/22/25 Hank Guzman MD [address] [place] [phone] Insurance Assigned Provider 09/20/23 02/19/25 documented as of this encounter Additional Source Comments The information contained in this document represents components of the legal health record. It is not the complete legal health record.[facility]
--- OUTSIDE RECORDS SUMMARY | 2025-03-22 15:41 | XMS_ITS | Encounter Summary ---
Author Organization [facility] Address [address] [address] Phone Care Team Providers Care Inventory Technician Name Role Phone Cassie Perez MD Unavailable [phone] Clementine Freeman MD Primary Care Provider Cassie Perez MD Unavailable [phone] Hank Guzman MD Unavailable Hank Guzman MD Unavailable Hank Guzman MD Unavailable Hank Guzman MD Unavailable SoHank lomax MD Unavailable Encounter Details Date Type Department Care Team (Late st Contact Info) Description 10/14/2024 Ancillary Orders [facility], X-Ray - [address] [place] [address] Apoorva Aquino PA [address] [place] [address] [email or web address] Pain (Primary Dx) Social History [...] documented as of this encounter Care Teams Inventory Technician Relationship Specialty Start Date End Date Clementine Freeman MD [address] [place] [address] [email or web address] PCP - General Internal Medicine 05/01/23 Cassie Perez MD [email or web address] Consulting Provider Geriatric Medicine 11/09/21 Cassie Perez MD [email or web address] Geriatric Medicine 04/19/24 Hank Guzman MD [address] [place] [phone] Insurance Assigned Provider 09/20/23 10/23/24 Hank Guzman MD [address] [place] [phone] Insurance Assigned Provider 09/20/23 11/20/24 Hank Guzman MD [address] [place] [phone] Insurance Assigned Provider 09/20/23 12/25/24 Hank Guzman MD [address] [place] [address] [email or web address] Insurance Assigned Provider 09/20/23 01/22/25 Hank Guzman MD [address] [place] [address] [email or web address] Insurance Assigned Provider 09/20/23 02/19/25 documented as of this encounter Additional Source Comments The information contained in this document represents components of the legal health record. It is not the complete legal health record.[facility]
--- OUTSIDE RECORDS SUMMARY | 2025-03-22 15:41 | XMS_ITS | Encounter Summary ---
Author Organization [facility] Address [address] [facility] [address] [place] [address] Phone Care Team Providers Care Extractions Technologist Name Role Phone Laura Botello MD Primary Care Provi hilda Jannette Ramirez MD Primary Care Provider Kiki Norman MD Primary Care Provid er Cassie Perez MD Unavailable [phone] Unknown, Unknown Primary Care Provider Hank Anne MD Primary Care Provider Hank Guzman MD Unavailable Clementine Freeman MD Primary Care Provider [phone] Cassie Perez MD Unavailable Hank Guzman MD Unavailable Hank Guzman MD Unavailable Hank Gzuman MD Unavailable Hank Guzman MD Unavailable Hank Guzman MD Unavailable Encounter Details Date Type Department Care Team (Late st Contact Info) Description 01/14/2020 Transcribe Orders [facility] Department [address] [place] [address] Laura Botello MD [address] [place], [place] [id number] [email or web address] Encounter for laboratory testing for COVID-19 virus [...] 2:18 PM EDT) Specimen Source NASOPHARYNGEAL SWAB (COLOR CORRECTOR) [facility] COVID Testing Status Sent to [facility] Other 02/04/2020 2:18 PM EDT 02/04/2020 4:55 PM EDT us Laura Botello MD BODY FLUIDS AND STO OLS ORDERABLES Final Result [address] [address] documented in this encounter Visit Diagnoses Diagnosis Encounter for laboratory testing for COVID-19 virus- Primary documented in this encounter Additional Health Concerns Infection Onset Date Last Indicated Resolved Time CoV-Risk 05/20/2022 05/20/2022 05/31/2022 1:23 AM EST documented as of this encounter Care Teams Extractions Technologist Relationship Specialty Start Date End Date Laura Botello MD [email or web address] PCP - General Internal Medicine 01/18/20 05/04/20 Jannette Ramirez MD [email or web address] PCP - General Internal Medicine 05/05/20 10/23/21 Kiki Norman MD [address] [place] [address] [email or web address] PCP - General Family Medicine 10/24/21 04/18/22 Unknown, Traci, PCP - General 04/22/22 05/19/22 Hank Guzman MD [address] [place] [address] [email or web address] PCP - General Internal Medicine 05/20/22 04/30/23 Clementine Freeman MD [address] [place] [address] [email or web address] PCP - General Internal Medicine 05/01/23 Cassie Perez MD [address] [place] [address] [email or web address] Consulting Provider Geriatric Medicine 11/09/21 Hank Guzman MD [address] [place] [address] [email or web address] Insurance Assigned Provider 09/20/23 09/19/24 Cassie Perez MD [address] [place] [address] [email or web address] Geriatric Medicine 04/19/24 Hank Guzman MD [address] [place] [address] Insurance Assigned Provider 09/20/23 10/23/24 Hank Guzman MD [address] [place] [address] Insurance Assigned Provider 09/20/23 11/20/24 Hank Guzman MD [address] [place] [address] [email or web address] Insurance Assigned Provider 09/20/23 12/25/24 Hank Guzman MD [address] [place] [phone] Insurance Assigned Provider 09/20/23 01/22/25 Hank Guzman MD [address] [place] [address] Insurance Assigned Provider 09/20/23 02/19/25 documented as of this encounter Additional Source Comments The information contained in this document represents components of the legal health record. It is not the complete legal health record.[facility]
--- OUTSIDE RECORDS SUMMARY | 2025-03-22 15:41 | XMS_ITS | Encounter Summary ---
Author Organization [facility] Address [address] [address] Phone Care Team Providers Care Director Of Advertising Sales Name Role Phone Cassie Perez MD Unavailable [phone] Clementine Freeman MD Primary Care Provider [phone] Cassie Perez MD Unavailable [phone] Hank Guzman MD Unavailable Hank Guzman MD Unavailable Hank Guzman MD Unavailable Hank Guzman MD Unavailable Hank Guzman MD Unavailable Encounter Details Date Type Department Care Team (Late st Contact Info) Description 10/15/2024 Procedure Pass [facility], Ct Scan - [address] [address] Social History Tobacco Use Types Packs/Day Years [...] of this encounter Care Teams Director Of Advertising Sales Relationship Specialty Start Date End Date Clementine Freeman MD [address] [place] [address] [email or web address] PCP - General Internal Medicine 05/01/23 Cassie Perez MD [email or web address] Consulting Provider Geriatric Medicine 11/09/21 Cassie Perez MD [email or web address] Geriatric Medicine 04/19/24 Hank Guzman MD [address] [place] [address] [email or web address] Insurance Assigned Provider 09/20/23 10/23/24 Hank Guzman MD [address] [place] [address] [email or web address] Insurance Assigned Provider 09/20/23 11/20/24 Hank Guzman MD [address] [place] [address] [email or web address] Insurance Assigned Provider 09/20/23 12/25/24 Hank Guzman MD [address] [place] [address] [email or web address] Insurance Assigned Provider 09/20/23 01/22/25 Hank Guzman MD [address] [place] [address] [email or web address] Insurance Assigned Provider 09/20/23 02/19/25 documented as of this encounter Additional Source Comments The information contained in this document represents components of the legal health record. It is not the complete legal health record.[facility]
[2025-03-22 16:25] VITALS: BP 168/82; PULSE 58; RESP 15; TEMP 36.1; O2SAT 95
--- NOTE | 2025-03-22 16:27 | PC.NURSE ---
SERGE from [facility] Patient pleasantly demented. Patient slipped out of bed this AM, family wanted patient to be seen d/t possible increased weakness CXR shows improving PNA Head and ABD CT = no acute findings provider into see patient plan of care on going
--- NOTE | 2025-03-22 16:30 | PC.NURSE ---
Patient kept spilling urinal on self Patient provided a male purewick Purewick came off This RN assisted patient with urinal
--- NOTE | 2025-03-22 18:28 | PC.NURSE ---
Patient pulled out IV pressure applied and dressed with DCD Patient wnted to use restroom Patient ambulated 1 assist with walker steady gait noted denies SOB
--- NOTE | 2025-03-22 19:45 | PC.NURSE ---
pt vry confused, but redirectable. Ambulated to bathroom unsteady gait.
[2025-03-22 20:09] VITALS: BP 143/86; PULSE 67; RESP 16; TEMP 36.1; O2SAT 94
--- NOTE | 2025-03-22 21:20 | PC.NURSE ---
Due to unsteady gait patient assisted with urinal in stretcher
[2025-03-22 22:21] VITALS: BP 160/83; PULSE 68; RESP 16; TEMP 36.2; O2SAT 96
[2025-03-23 06:35] VITALS: BP 129/77; PULSE 66; RESP 16; TEMP 36.6; O2SAT 95
[2025-03-23 09:38] LABS: Resp Syncy Virus RNA Qual PCR NEGATIVE (Negative); SARS COV2 PCR INHOUSE NEGATIVE (Negative)
--- NOTE | 2025-03-23 10:24 | MHC.CM.ED ---
Received case management consult overnight. Patient came to the ER due to weakness Work up essentially negative. Physical therapy eval attempted but patient was eating breakfast. Attempted to speak with patient in regards to d/c planning. Patient has significant dementia. Spoke with patient's , Matt, via telephone at [phone]. Patient and Matt live at [facility]. Have been trying to get assisted living without success. Patient has 8 free STR days at [facility]. Matt agreeable. Referral made to [facility]. [facility] can offer a bed. Natalie ANDREWS booked for 1130am. [facility] with chart. Patient, Matt, Hoa RN and Radha SHULTZ aware. Continue to monitor for d/c needs.
[2025-03-23 11:32] VITALS: BP 149/73; PULSE 69; RESP 16; TEMP 36.7; O2SAT 96
--- NOTE | 2025-03-23 11:44 | PC.NURSE ---
[facility]
[2025-03-23 11:45] VITALS: BP 149/73; PULSE 69; RESP 16; TEMP 36.7; O2SAT 96
== END 2025-03-23 11:45 ==
PROVIDERS: Physician Assistant Medical; Emergency Provider Student in an Organized Health Care Education/Training Program; PCP Internal Medicine
DX: R53.1 Weakness (principal); R19.04 Left lower quadrant abdominal swelling, mass and lump; G30.9 Alzheimer's disease, unspecified; F02.80 Dementia in other diseases classified elsewhere, unspecified severity, without behavioral disturbance, psychotic disturbance, mood disturbance, and anxiety; I10 Essential (primary) hypertension; Z79.899 Other long term (current) drug therapy; Z03.818 Encounter for observation for suspected exposure to other biological agents ruled out; Z66 Do not resuscitate
CPT/HCPCS: 36415; 70450; 71046; 74177; 80053; 81003; 83735; 84443; 85025; 87637; 93005; 96360; 99285; Q9967

== ENCOUNTER → 2025-03-22 12:25 | Outpatient (BNV) | payer MEDICARE, SELFPAY | PROVIDERS: Emergency Provider Student in an Organized Health Care Education/Training Program; PCP Internal Medicine; Visit Provider Radiology Diagnostic Radiology | DX: R19.04 Left lower quadrant abdominal swelling, mass and lump (principal); I67.82 Cerebral ischemia; G31.9 Degenerative disease of nervous system, unspecified; W19.XXXA Unspecified fall, initial encounter | CPT/HCPCS: 70450; 74177 ==

== ENCOUNTER → 2025-03-22 12:25 | Outpatient (BNV) | payer MEDICARE, SELFPAY | PROVIDERS: Emergency Provider Student in an Organized Health Care Education/Training Program; PCP Internal Medicine; Visit Provider Internal Medicine Cardiovascular Disease | DX: I45.10 Unspecified right bundle-branch block (principal) | CPT/HCPCS: 93010 ==